=== PATIENT | male | born 1980 ===

== ENCOUNTER 2019-03-22 14:33 | Inpatient (IN) | payer OTHER ==
[2019-03-22] MEDS ORDERED: SENOKOT PO PRN (15:11)
[2019-03-22] MEDS ORDERED: TYLENOL PO PRN (15:11)
[2019-03-22] MEDS ORDERED: DULCOLAX PR PRN (15:11)
[2019-03-22] MEDS ORDERED: APRESOLINE PO PRN (15:20)
[2019-03-22] MEDS ORDERED: ZOFRAN ODT PO PRN (15:20)
[2019-03-22] MEDS: HEPARIN SUB-Q SCH (21:56)
[2019-03-23 05:16] LABS: Basophils # (Auto) 0.1 K/mm3 (0.0-0.1); Basophils % (Auto) 0.9 % (0.0-1.8); Eosinophils # (Auto) 0.3 K/mm3 (0.0-0.4); Eosinophils % (Auto) 3.7 % (0.0-4.3); Lymphocytes # (Auto) 0.9 K/mm3 (1.2-5.4); Lymphocytes % (Auto) 10.2 % (13.4-35.0); Mean Corpuscular HGB Conc 33 % (32-34); Mean Corpuscular Volume 88 fl (84-94); Monocytes # (Auto) 0.8 K/mm3 (0.0-0.8); Monocytes % (Auto) 9.3 % (0.0-7.3); Platelet Count 276 K/mm3 (140-440); Red Blood Count 4.09 M/mm3 (3.65-5.03); Red Cell Distribution Width 15.8 % (13.2-15.2)
[2019-03-23 05:37] LABS: Albumin 3.7 g/dL (3.9-5); Calcium 8.8 mg/dL (8.4-10.2)
[2019-03-23] MEDS: HEPARIN SUB-Q SCH ×3 (06:49→21:02)
[2019-03-23] MEDS: PROTONIX PO SCH (09:32)
[2019-03-23] MEDS: VITAMIN C PO SCH (09:32)
[2019-03-23] MEDS: FEOSOL PO SCH (09:32)
--- NOTE | 2019-03-23 15:37 | History and Physical Report ---
History of Present Illness Date: 03/23/19 Date of admission: 03/22/19 16:53 Chief Complaint: Difficulty walking, weakness History of present illness: 39-year-old male with generalized weakness and dizziness plus right flank pain and diarrhea. Admitted to the hospital was found to be hypotensive and hyponatremic. Cardiology was consulted, Echocardiogram was obtained but do not have results. CTs of the abdomen and chest showed no acute abnormalities. CT stone protocol showed a possible 1 mm stone on the left kidney. Ultrasound of the gallbladder showed no acute abnormalities but did show fatty liver. Uncertain etiology for his weakness and loss of balance. 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 Patient and family deny any radiation or chemotherapy to the area. Also noted on exam that there is a slight right facial droop that the mother also picked up on. No other focal signs. Do not have a MRI brain or CT head available from outside hospital. At this point I'm suspecting a neurologic issue and will need to investigate records and work up further. After the patient was medically stabilized they were transferred for further rehabilitation. All available medical records have been reviewed. Plan of care was discussed with patient and family. Past History Past Medical History: cancer, diabetes, hypertension, other (RAUDEL on CPAP, CK D2, morbid obesity, glaucoma) Past Surgical History: Other (skin cancer excision) Social history: , lives with family (2 level home), full code. denies: smoking, alcohol abuse, prescription drug abuse Family history: hypertension Medications and Allergies Allergies Allergy/AdvReac Type Severity Reaction Status Date / Time hydromorphone [From Dilaudid] AdvReac Unknown Unverified 03/22/19 14:36 Active Meds: Active Medications Acetaminophen (Tylenol) 650 mg PO Q4H PRN PRN Reason: Pain MILD(1-3)/Fever >100.5/HAGER Ascorbic Acid (Vitamin C) 500 mg PO QDAY [facility] Last Admin: 03/23/19 09:32 Dose: 500 mg Documented by: Bisacodyl (Dulcolax) 10 mg VA QDAY PRN PRN Reason: Constipation unrelieved by MOM Ferrous Sulfate (Feosol) 325 mg PO QDAY [facility] Last Admin: 03/23/19 09:32 Dose: 325 mg Documented by: Heparin Sodium (Porcine) (Heparin) 5,000 unit SUB-Q Q8HR [facility] Last Admin: 03/23/19 15:02 Dose: 5,000 unit Documented by: Hydralazine HCl (Apresoline) 10 mg PO Q6H PRN PRN Reason: Hypertension Ondansetron HCl (Zofran Odt) 4 mg PO Q8H PRN PRN Reason: Nausea And Vomiting Pantoprazole Sodium (Protonix) 40 mg PO QDAY [facility] Last Admin: 03/23/19 09:32 Dose: 40 mg Documented by: Idania (Senokot) 8.6 mg PO Q12H PRN PRN Reason: Laxative Effect Review of Systems All systems: negative (ROS negative for 12 systems except as noted below with pertinent positives and negatives.) Constitutional: no weight loss, no weight gain, no fever, no chills Ears, nose, mouth and throat: no decreased hearing, no odynophagia, no vertigo Cardiovascular: no chest pain, no palpitations, no rapid/irregular heart beat, no edema Respiratory: no cough, no cough with sputum Gastrointestinal: no abdominal pain, no nausea, no vomiting, no diarrhea, no c onstipation Genitourinary Male: urinary hesitancy, incontinence, no dysuria Musculoskeletal: arm numbness/tingling, leg numbness/tingling, no neck pain, no shooting arm pain Integumentary: no rash, no pruritis, no redness, no sores Neurological: numbness, no head injury Psychiatric: no memory loss Exam - Exam Narrative exam: MUSCULOSKELETAL SPECIALTY EXAM CONSTITUTIONAL: Well developed, well nourished, obese, appropriately groomed LYMPHATIC: No appreciable abnormalities palpable in neck EENT: Visual murguia full to confrontation. EOMI. Oropharynx clear. Hearing intact to soft voice RESPIRATORY: Clear to auscultation bilaterally, no increased work of breathing CARDIOVASCULAR: Regular Rate/ Rhythm, mild swelling in b/l feet, otherwise no edema or tenderness in BUE or BLE. Pulses palpable in all extremities. All extremities warm. GI: + bowel sounds, soft, NTTP, nondistended. INTEGUMENTARY: Normal, no lesion, rash, masses or bruising noted in extremities except for old scar over left shoulder MUSCULOSKELETAL: BUE and BLE normal without defect, crepitus, subluxation, effusion, arthritic changes or TTP. Straight leg raise negative bilaterally BUE 4+/5, good ROM, with normal tone. BLE 4+/5 good ROM, with normal tone NEURO: CN 2-12 grossly intact. Sensation intact but altered with numbness in all extremities. Reflexes 2+ bilaterally at biceps, brachioradialis and patella. No clonus at ankles. Coordination intact in BUE. No tremor noted in 4 extremities. POSTURE and GAIT: Sitting posture good. Balance and gait decreased even with rolling walker. PSYCH: Alert, oriented x3, affect appears normal. Insight appears intact. - Constitutional Vitals: Vital Signs - 12hr 03/23/19 03/23/19 03/23/19 04:31 07:24 11:55 Temperature 37.2 C 36.9 C 36.5 C Pulse Rate 52 L 70 57 L Respiratory 20 20 20 Rate Blood Pressure 105/66 134/78 Blood Pressure 133/76 [Left] O2 Sat by Pulse 92 92 97 Oximetry - Allied health notes FIMS assesment as documented by PT/OT/ST: Grooming Patient cleans teeth/dentures: Yes Patient reyes/brushes hair: Yes Patient washes, rinses and Yes dries face: Patient washes, rinses and Yes dries hands: Patient shaves: No Patient applies make-up: No Patient performs (no make-up/ / (100%) shaving): Grooming FIM Score 5. Supervision ([place] applies toothpaste or opens containers.) Toileting Toileting Device Urinal,Bedside Commode Patient able to: Adjust clothes before,Clean self,Adjust clothes after Patient able to perform: 3/3 (100%) Toileting FIM Score 4. Minimal Assistance (Patient = 75% or more. Needs touching.) Social interaction/Memory/Problem solving Social Interaction FIM Score 7. Complete [place] (Interacts appropriately. Controls temper.) Memory FIM Score 7. Complete [place] (Remembers people and routines.) Problem Solving FIM Score 5. Supervision (Needs cueing <10% to solve routine problems.) Transfers Mode of Locomotion: Walking Bed/Chair/Wheelchair Transfers 4. Minimal Assistance (Patient = 75% or more. FIM Score Needs touching.) Toilet Transfers FIM Score 4. Minimal Assistance (Patient = 75% or more. Needs touching.) Patient transferred to: Shower Shower Transfers FIM Score 4. Minimal Assistance (Patient = 75% or more. Needs touching.) Locomotion- walk/wheelchair Ambulation Distance 36 Eating Eating FIM Score 5. Supervision/Set-Up (Needs help w/ container s, cutting meat, etc.) Dressing-Upper body Patient retrieves clothing No items: Patient applies/removes UE No prosthesis or orthosis: Upper Body Dressing FIM Score 4. Minimal Assistance (Patient = 75% or more. Needs touching.) Dressing-lower body Patient retrieves clothing No items: Patient applies/removes LE No prosthesis or orthosis: Lower Body Dressing FIM Score 4. Minimal Assistance (Patient = 75% or more. Needs touching.) - Labs CBC & Chem 7: 03/23/19 04:25 03/23/19 04:25 Labs: Laboratory Results - last 72 hr 03/23/19 03/23/19 04:25 04:25 WBC 8.5 RBC 4.09 Hgb 12.0 Hct 36.0 MCV 88 MCH 29 MCHC 33 RDW 15.8 H Plt Count 276 Lymph % (Auto) 10.2 L [place] % (Auto) 9.3 H Eos % (Auto) 3.7 Baso % (Auto) 0.9 Lymph # 0.9 L [place] # 0.8 Eos # 0.3 Baso # 0.1 Seg Neutrophils % 75.9 H Seg Neutrophils # 6.4 Sodium 140 Potassium 4.3 Chloride 105.5 Carbon Dioxide 24 Anion Gap 15 BUN 11 Creatinine 1.4 Estimated GFR 56 BUN/Creatinine Ratio 8 Glucose 96 Calcium 8.8 Total Bilirubin 0.40 AST 39 ALT 44 Alkaline Phosphatase 73 Total Protein 7.0 Albumin 3.7 L Albumin/Globulin Ratio 1.1 Assessment and Plan Assessment and plan: Patient was assessed and evaluated for Acute Inpatient Rehab Unit. Due to the patients above-mentioned medical complexity, along with decreased functional mobility and self care, this patient continues to require and be appropriate for a comprehensive, multidisciplinary [id number] sav abilitation program. These needs cannot be met in an outpatient or other less intensive setting. The patient would continue to benefit from skilled therapy intervention for at least 3 hours per day, five days a week, with techniques specific to the needs of the patient to improve function, activities of daily living, and reintegration into the community. The patient continues to require: -- OT to improve ROM, self-care, and learn use of adaptive equipment -- PT to improve strength and balance, functional transfers, and ambulation with energy conservation techniques to improve functional mobility -- 24 hour RN to ensure and prevent skin breakdown, promote progressive independence while ensuring safety, ensure education regarding medications, and incorporation of the rehabilitation at the bedside -- 24 hour Book Sewer to coordinate this interdisciplinary program, and to manage/prevent complications as a result of the patients medical comorbidities. -Plan of care by day 4 -Weekly team conferences With such a program, there is a reasonable certainty that the goals individualized for this patient can be achieved within the specified length of stay. M62.81 Muscle weakness: PT & OT will work on strengthening exercises to improve functional strength including mixture of closed and open kinetic chain exercises. R26.2 Difficulty walking: PT will work on gait training and proper use of assistive devices and advance as appropriate to use of stairs and outside ambulation on uneven surfaces. Z73.6 ADL dysfunction: OT will work on improving ability to perform ADLs (including assistive devices) to increase independence and decrease caregiver burden and improve functional transfers and mobility training. R26.81 Unsteadiness on feet: PT will work on improving static and dynamic s itting and standing balance as well as proper use of assistive devices to decrease risk of falls. R26.89 Abnormality of gait: PT will work to improve safety and efficiency of gait through neuromotor training and gait training along with instruction on proper use of assistive devices. R53.81 Debility: PT & OT will work on improving overall functional status to improve participation with ADLs, mobility and social involvement. R53.83 Fatigue: PT & OT will work on improving endurance through aerobic exercises and therapeutic activity while monitoring patients tolerance for activity and vital signs as needed. Hypertension: Continue medications and adjust as needed CKD 2:Avoid nephrotoxic medications, monitor Diabetes type 2: monitor blood GLU and cont carb controlled diet Morbid obesity: modification of diet/lifestyle and exercise discussed Obstructive sleep apnea: CPAP, moniotr DVT ppx: Heparin Pain: Continue physical modalities in therapy and pain medications as needed to achieve functional pain control. Sleep: Monitor and address as needed. Bowel: Monitor and address as needed. Appetite: Monitor and address as needed. Discharge planning: Pending therapy progress and care plan meeting. Will continue discussion with therapy team, SW, patient and family. 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 Will monitor for worsening HTN, DM, CKD, DVT/PE, bowel and bladder complications and electrolyte abnormalities. Will attempt to avoid occurrence of these issues or treat them if they present themselves.
[2019-03-23] MEDS ORDERED: VITAMIN B-12 IM NR (21:05)
[2019-03-24] MEDS: HEPARIN SUB-Q SCH ×3 (05:00→21:16)
[2019-03-24] MEDS ORDERED: VITAMIN D3 PO SCH (08:00)
--- NOTE | 2019-03-24 09:12 | Progress Note ---
Subjective Date of service: 03/24/19 Principal diagnosis: Difficulty walking, weakness Interval history: 39-year-old male with generalized weakness and dizziness plus right flank pain and diarrhea. Admitted to the hospital was found to be hypotensive and hyponatremic. Cardiology was consulted, Echocardiogram was obtained but do not have results. CTs of the abdomen and chest showed no acute abnormalities. CT stone protocol showed a possible 1 mm stone on the left kidney. Ultrasound of the gallbladder showed no acute abnormalities but did show fatty liver. Uncertain etiology for his weakness and loss of balance. 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 Patient and family deny any radiation or chemotherapy to the area. Also noted on exam that there is a slight right facial droop that the mother also picked up on. No other focal signs. Do not have a MRI brain or CT head available from outside hospital. At this point I'm suspecting a neurologic issue and will need to investigate records and work up further. Reviewed records again. Mention of a Head CT being ordered but no results. Attempted to order Brain MRI today but he is too heavy by ~50lbs. Newer CT is down, will order Head CT once available. Suspect lacunar infarct likely in pontine area. TTP over suprapubic area with urge but inability to urinate. Nelson inserted today due to retention with overflow incontinence with 1300mL out. Weakness and parasthesias were sudden in onset accompanied by urinary incontinence. Have replaced low vitamin levels with some results pending. Due to concern for CVA and inability to obtain radiographic proof, will start secondary stroke prevention. Patient is 20 days out from initial event and has been on dvt ppx without worsening symptoms. BP has been borderline , start low dose lisinopril and adjust for effect. Patient is participating in therapy and making reasonable progress. Taking rest breaks as needed. +BM. Denies pain, palpitations, dyspnea, cough, N/V, or joint pain. All records, vitals, labs and medications were reviewed. No other issues per patient, nursing or therapy. Objective - Exam Narrative Exam: MUSCULOSKELETAL SPECIALTY EXAM CONSTITUTIONAL: Well developed, well nourished, obese, appropriately groomed EENT: Hearing intact to soft voice RESPIRATORY: Clear to auscultation bilaterally, no increased work of breathing CARDIOVASCULAR: Regular Rate/ Rhythm, mild swelling in b/l feet, otherwise no edema or tenderness in BUE or BLE. Pulses palpable in all extremities. All extremities warm. GI: + bowel sounds, soft, NTTP, nondistended, except increased urinary urge/TTP at suprapubic area. INTEGUMENTARY: Normal, no lesion, rash, masses or bruising noted in extremities except for old scar over left shoulder MUSCULOSKELETAL: BUE and BLE normal without defect, crepitus, subluxation, effusion, arthritic changes or TTP. Straight leg raise negative bilaterally BUE 4+/5, good ROM, with normal tone. BLE 4+/5 good ROM, with normal tone NEURO: CN 2-12 grossly intact except for slight right flattening of nasolabial fold. Sensation intact but altered with numbness in all extremities. No tremor noted in 4 extremities. POSTURE and GAIT: Sitting posture good. Balance and gait decreased even with rolling walker. PSYCH: Alert, oriented x3, affect appears normal. Insight appears intact. - Constitutional Vitals: Vital Signs - 12hr 03/24/19 03/24/19 05:31 07:37 Temperature 36.8 C 36.6 C Pulse Rate 73 68 Respiratory 20 18 Rate Blood Pressure 142/76 140/82 [Left] O2 Sat by Pulse 92 94 Oximetry - Allied health notes Allied health notes reviewed: nursing, PT, OT FIMS assessment as documented by PT/OT/ST: Grooming Patient cleans teeth/dentures: Yes Patient reyes/brushes hair: Yes Patient washes, rinses and Yes dries face: Patient washes, rinses and Yes dries hands: Patient shaves: No Patient applies make-up: No Patient performs (no make-up/ / (100%) shaving): Grooming FIM Score 5. Supervision ([place] applies toothpaste or opens containers.) Toileting Toileting Device Urinal,Bedside Commode Patient able to: Adjust clothes before,Clean self,Adjust clothes after Patient able to perform: 3/3 (100%) Toileting FIM Score 4. Minimal Assistance (Patient = 75% or more. Needs touching.) Social interaction/Memory/Problem solving Social Interaction FIM Score 7. Complete [place] (Interacts appropriately. Controls temper.) Memory FIM Score 7. Complete [place] (Remembers people and routines.) Problem Solving FIM Score 5. Supervision (Needs cueing <10% to solve routine problems.) Transfers Mode of Locomotion: Walking Bed/Chair/Wheelchair Transfers 4. Minimal Assistance (Patient = 75% or more. FIM Score Needs touching.) Toilet Transfers FIM Score 4. Minimal Assistance (Patient = 75% or more. Needs touching.) Patient transferred to: Shower Shower Transfers FIM Score 4. Minimal Assistance (Patient = 75% or more. Needs touching.) Locomotion- walk/wheelchair Most Frequent Mode of Wheelchair Locomotion: Ambulation Distance 36 Walking FIM Score 1. Total Assistance (Pt. < 25%, 2 or more person assist, or <50 ft.) Wheelchair Propulsion Distance 274 Wheelchair FIM Score 6. Modified [place] (Wheels a minimum of 150 ft.) Eating Eating FIM Score 5. Supervision/Set-Up (Needs help w/ containers, cutting meat, etc.) Dressing-Upper body Patient retrieves clothing No items: Patient applies/removes UE No prosthesis or orthosis: Upper Body Dressing FIM Score 4. Minimal Assistance (Patient = 75% or more. Needs touching.) Dressing-lower body Patient retrieves clothing No items: Patient applies/removes LE No prosthesis or orthosis: Lower Body Dressing FIM Score 4. Minimal Assistance (Patient = 75% or more. Needs touching.) - Labs CBC & Chem 7: 03/23/19 04:25 03/23/19 04:25 Labs: Laboratory Results - last 72 hr 03/23/19 03/23/19 03/23/19 04:25 04:25 17:06 WBC 8.5 RBC 4.09 Hgb 12.0 Hct 36.0 MCV 88 MCH 29 MCHC 33 RDW 15.8 H Plt Count 276 Lymph % (Auto) 10.2 L [place] % (Auto) 9.3 H Eos % (Auto) 3.7 Baso % (Auto) 0.9 Lymph # 0.9 L [place] # 0.8 Eos # 0.3 Baso # 0.1 Seg Neutrophils % 75.9 H Seg Neutrophils # 6.4 Sodium 140 Potassium 4.3 Chloride 105.5 Carbon Dioxide 24 Anion Gap 15 BUN 11 Creatinine 1.4 Estimated GFR 56 BUN/Creatinine Ratio 8 Glucose 96 Calcium 8.8 Total Bilirubin 0.40 AST 39 ALT 44 Alkaline Phosphatase 73 Total Protein 7.0 Albumin 3.7 L Albumin/Globulin Ratio 1.1 Vitamin B12 370.3 Folate 03/23/19 17:06 WBC RBC Hgb Hct MCV MCH MCHC RDW Plt Count Lymph % (Auto) [place] % (Auto) Eos % (Auto) Baso % (Auto) Lymph # [place] # Eos # Baso # Seg Neutrophils % Seg Neutrophils # Sodium Potassium Chloride Carbon Dioxide Anion Gap BUN Creatinine Estimated GFR BUN/Creatinine Ratio Glucose Calcium Total Bilirubin AST ALT Alkaline Phosphatase Total Protein Albumin Albumin/Globulin Ratio Vitamin B12 Folate 4.14 L Assessment and Plan M62.81 Muscle weakness: PT & OT will work on strengthening exercises to improve functional strength including mixture of closed and open kinetic chain exercises. R26.2 Difficulty walking: PT will work on gait training and proper use of assistive devices and advance as appropriate to use of stairs and outside ambulation on uneven surfaces. Z73.6 ADL dysfunction: OT will work on improving ability to perform ADLs (including assistive devices) to increase independence and decrease caregiver burden and improve functional transfers and mobility training. R26.81 Unsteadiness on feet: PT will work on improving static and dynamic sittin g and standing balance as well as proper use of assistive devices to decrease risk of falls. R26.89 Abnormality of gait: PT will work to improve safety and efficiency of gait through neuromotor training and gait training along with instruction on proper use of assistive devices. R53.81 Debility: PT & OT will work on improving overall functional status to improve participation with ADLs, mobility and social involvement. R53.83 Fatigue: PT & OT will work on improving endurance through aerobic exer cises and therapeutic activity while monitoring patients tolerance for activity and vital signs as needed. Hypertension: Lisinopril started for protective properties and adjust as needed CKD 2:Avoid nephrotoxic medications, monitor, stable currently Diabetes type 2: monitor blood GLU and cont carb controlled diet Morbid obesity: modification of diet/lifestyle and exercise discussed Obstructive sleep apnea: CPAP, monitor Presumed CVA: Likely lacunar infarct. CT head when newer scan available. Start secondary stroke prevention Urinary retention with incontinence: Nelson inserted, 1300mL out initially. Monitor and start bladder training soon. Folate deficiency: replaced Vit B12 topped off, Vit D pending and low dose replacement started, Vit B6 pending. Lipid panel ordered DVT ppx: Heparin Pain: Continue physical modalities in therapy and pain medications as needed to achieve functional pain control. Sleep: Monitor and address as needed. Bowel: Monitor and address as needed. Appetite: Monitor and address as needed. Discharge planning: Pending therapy progress and care plan meeting. Will continue discussion with therapy team, SW, patient and family. 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
[2019-03-24] MEDS: VITAMIN D3 PO SCH (09:49)
[2019-03-24] MEDS: VITAMIN C PO SCH (09:49)
[2019-03-24] MEDS: FEOSOL PO SCH (09:50)
[2019-03-24] MEDS: FOLVITE PO SCH (09:50)
[2019-03-24] MEDS: PROTONIX PO SCH (09:50)
[2019-03-25] MEDS: HEPARIN SUB-Q SCH ×3 (05:10→22:47)
[2019-03-25 07:45] LABS: BUN/Creatinine Ratio 11; Blood Urea Nitrogen 14 mg/dL (9-20); Calcium 9.6 mg/dL (8.4-10.2); Hemolysis Index 13; LDL Cholesterol,Direct 107 mg/dL (50-130)
[2019-03-25 07:59] LABS: HDL Cholesterol 37 mg/dL (40-59)
--- NOTE | 2019-03-25 09:33 | Progress Note ---
Subjective Date of service: 03/25/19 Principal diagnosis: Difficulty walking, weakness Interval history: 39-year-old male with generalized weakness and dizziness plus right flank pain and diarrhea. Admitted to the hospital was found to be hypotensive and hyponatremic. Cardiology was consulted, Echocardiogram was obtained but do not have results. CTs of the abdomen and chest showed no acute abnormalities. CT stone protocol showed a possible 1 mm stone on the left kidney. Ultrasound of the gallbladder showed no acute abnormalities but did show fatty liver. Uncertain etiology for his weakness and loss of balance. 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 Patient and family deny any radiation or chemotherapy to the area. Also noted on exam that there is a slight right facial droop that the mother also picked up on. No other focal signs. Do not have a MRI brain or CT head available from outside hospital. At this point I'm suspecting a neurologic issue and will need to investigate records and work up further. Head CT NEG for infarct but he continues to have loss of balance, weakness p arasthesias and urinary retention - all sudden in onset. Suspect lacunar infarct likely in pontine area. Patient is participating in therapy and making reasonable progress. Taking rest breaks as needed. +BM. Denies pain, palpitations, dyspnea, cough, N/V, or joint pain. Started flomax. Will start bladder training next week after flomax has been in his system. Discussed with both patient and the lack of findings on CT. Also discussed concern based on clinical picture. Advise not to drive until he is cleared. Discussed in Team conference. Making decent progress. Slight improvements in balnace, ambulation and endurance. Continue therapy. All records, vitals, labs and medications were reviewed. No other issues per patient, nursing or therapy. Objective - Exam Narrative Exam: MUSCULOSKELETAL SPECIALTY EXAM CONSTITUTIONAL: Well developed, well nourished, obese, appropriately groomed EENT: Hearing intact to soft voice RESPIRATORY: Clear to auscultation bilaterally, no increased work of breathing CARDIOVASCULAR: Regular Rate/ Rhythm, mild swelling in b/l feet, otherwise no edema or tende rness in BUE or BLE. Pulses palpable in all extremities. All extremities warm. GI : + bowel sounds, soft, NTTP, nondistended. Nelson INTEGUMENTARY: Normal, no lesion, rash, masses or bruising noted in extremities except for old scar over left shoulder MUSCULOSKELETAL: BUE and BLE normal without defect, crepitus, subluxation, effusion, arthritic changes or TTP. Straight leg raise negative bilaterally BUE 4+/5, good ROM, with normal tone. BLE 4+/5 good ROM, with normal tone NEURO: CN 2-12 grossly intact except for slight right flattening of nasolabial fold. Sensation intact but altered with numbness in all extremities. No tremor noted in 4 extremities. POSTURE and GAIT: Sitting posture good. Balance and gait decreased even with rolling walker. PSYCH: Alert, oriented x3, affect appears normal. Insight appears intact. - Constitutional Vitals: Vital Signs - 12hr 03/24/19 03/25/19 03/25/19 23:00 04:28 08:00 Temperature 37.2 C 37.0 C Pulse Rate 74 59 L Respiratory 20 20 18 Rate Blood Pressure 149/91 Blood Pressure 152/71 [Left] O2 Sat by Pulse 91 Oximetry 03/25/19 08:07 Temperature Pulse Rate 59 L Respiratory Rate Blood Pressure Blood Pressure [Left] O2 Sat by Pulse 94 Oximetry - Allied health notes Allied health notes reviewed: nursing, PT, OT FIMS assessment as documented by PT/OT/ST: Grooming Patient cleans teeth/dentures: Yes Patient reyes/brushes hair: Yes Patient washes, rinses and Yes dries face: Patient washes, rinses and Yes dries hands: Patient shaves: No Patient applies make-up: No Patient performs (no make-up/ 4/4 (100%) shaving): Grooming FIM Score 5. Supervision ([place] applies toothpaste or opens containers.) Toileting Toileting Device Urinal,Bedside Commode Patient able to: Adjust clothes before,Clean self,Adjust clothes after Patient able to perform: 3/3 (100%) Toileting FIM Score 4. Minimal Assistance (Patient = 75% or more. Needs touching.) Social interaction/Memory/Problem solving Social Interaction FIM Score 7. Complete [place] (Interacts appropriately. Controls temper.) Memory FIM Score 7. Complete [place] (Remembers people and routines.) Problem Solving FIM Score 5. Supervision (Needs cueing <10% to solve routine problems.) Transfers Mode of Locomotion: Walking Bed/Chair/Wheelchair Transfers 5. Supervision (Needs supv. or set-up for FIM Score sliding board, foot rests.) Toilet Transfers FIM Score 4. Minimal Assistance (Patient = 75% or more. Needs touching.) Patient transferred to: Shower Shower Transfers FIM Score 4. Minimal Assistance (Patient = 75% or more. Needs touching.) Locomotion- walk/wheelchair Most Frequent Mode of Wheelchair Locomotion: Ambulation Distance 70 Walking FIM Score 4. Minimal Assistance (Patient = 75% or more. Minimum of 150 ft.) Wheelchair Propulsion Distance 274 Wheelchair FIM Score 6. Modified [place] (Wheels a minimum of 150 ft.) Eating Eating FIM Score 5. Supervision/Set-Up (Needs help w/ containers, cutting meat, etc.) Dressing-Upper body Patient retrieves clothing No items: Patient applies/removes UE No prosthesis or orthosis: Upper Body Dressing FIM Score 4. Minimal Assistance (Patient = 75% or more. Needs touching.) Dressing-lower body Patient retrieves clothing No items: Patient applies/removes LE No prosthesis or orthosis: Lower Body Dressing FIM Score 4. Minimal Assistance (Patient = 75% or more. Needs touching.) - Labs CBC & Chem 7: 03/23/19 04:25 03/25/19 07:09 Labs: Laboratory Results - last 72 hr 03/23/19 03/23/19 03/23/19 04:25 04:25 17:06 WBC 8.5 RBC 4.09 Hgb 12.0 Hct 36.0 MCV 88 MCH 29 MCHC 33 RDW 15.8 H Plt Count 276 Lymph % (Auto) 10.2 L [place] % (Auto) 9.3 H Eos % (Auto) 3.7 Baso % (Auto) 0.9 Lymph # 0.9 L [place] # 0.8 Eos # 0.3 Baso # 0.1 Seg Neutrophils % 75.9 H Seg Neutrophils # 6.4 Sodium 140 Potassium 4.3 Chloride 105.5 Carbon Dioxide 24 Anion Gap 15 BUN 11 Creatinine 1.4 Estimated GFR 56 BUN/Creatinine Ratio 8 Glucose 96 Calcium 8.8 Total Bilirubin 0.40 AST 39 ALT 44 Alkaline Phosphatase 73 Total Protein 7.0 Albumin 3.7 L Albumin/Globulin Ratio 1.1 Triglycerides Cholesterol LDL Cholesterol Direct HDL Cholesterol Cholesterol/HDL Ratio Vitamin B12 370.3 Folate 03/23/19 03/25/19 17:06 07:09 WBC RBC Hgb Hct MCV MCH MCHC RDW Plt Count Lymph % (Auto) [place] % (Auto) Eos % (Auto) Baso % (Auto) Lymph # [place] # Eos # Baso # Seg Neutrophils % Seg Neutrophils # Sodium 137 Potassium 4.3 Chloride 99.0 Carbon Dioxide 26 Anion Gap 16 BUN 14 Creatinine 1.3 Estimated GFR > 60 BUN/Creatinine Ratio 11 Glucose 91 Calcium 9.6 Total Bilirubin AST ALT Alkaline Phosphatase Total Protein Albumin Albumin/Globulin Ratio Triglycerides 108 Cholesterol 148 LDL Cholesterol Direct 107 HDL Cholesterol 37 L Cholesterol/HDL Ratio 4.00 Vitamin B12 Folate 4.14 L Assessment and Plan M62.81 Muscle weakness: PT & OT will work on strengthening exercises to improve functional strength including mixture of closed and open kinetic chain exercises. R26.2 Difficulty walking: PT will work on gait training and proper use of assistive devices and advance as appropriate to use of stairs and outside ambulation on uneven surfaces. Z73.6 ADL dysfunction: OT will work on improving ability to perform ADLs (including assistive devices) to increase independence and decrease caregiver burden and improve functional transfers and mobility training. R26.81 Unsteadiness on feet: PT will work on improving static and dynamic sitting and standing balance as well as proper use of assistive devices to decrease risk of falls. R26.89 Abnormality of gait: PT will work to improve safety and efficiency of gait through neuromotor training and gait training along with instruction on proper use of assistive devices. R53.81 Debility: PT & OT will work on improving overall functional status to improve participation with ADLs, mobility and social involvement. R53.83 Fatigue: PT & OT will work on improving endurance through aerobic exercises and therapeutic activity while monitoring patients tolerance for activity and vital signs as needed. Hypertension: Lisinopril started for protective properties and adjust as needed CKD 2:Avoid nephrotoxic medications, monitor, stable currently Diabetes type 2: monitor blood GLU and cont carb controlled diet Morbid obesity: modification of diet/lifestyle and exercise discussed Obstructive sleep apnea: CPAP, monitor Presumed CVA: Likely lacunar infarct. CT head NEG. Start secondary stroke prevention Urinary retention with incontinence: Nelson inserted, 1300mL out initially. Monitor and start bladder training soon. Flomax Folate deficiency: replaced Vit B12 topped off, Vit D pending and low dose replacement started, Vit B6 p ending. Lipid panel ordered DVT ppx: Heparin Pain: Continue physical modalities in therapy and pain medications as needed to achieve functional pain control. Sleep: Monitor and address as needed. Bowel: Monitor and address as needed. Appetite: Monitor and address as needed. Discharge planning: Pending therapy progress and care plan meeting. Will continue discussion with therapy team, SW, patient and family. 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
[2019-03-25] MEDS: PROTONIX PO SCH (11:00)
[2019-03-25] MEDS: VITAMIN D3 PO SCH (11:00)
[2019-03-25] MEDS: ZESTRIL PO SCH (11:00)
[2019-03-25] MEDS: FOLVITE PO SCH (11:00)
[2019-03-25] MEDS: HALFPRIN EC PO SCH (11:00)
[2019-03-25] MEDS: VITAMIN C PO SCH (11:00)
[2019-03-25] MEDS: FEOSOL PO SCH (11:00)
--- NOTE | 2019-03-25 17:20 | Cat Scan Report ---
CT head/brain wo con INDICATION: Weakness and numbness. TECHNIQUE: Routine CT head without contrast. All CT scans at this location are performed using CT dos e reduction for ALARA by means of automated exposure control. COMPARISON: None. FINDINGS: BRAIN / INTRACRANIAL CONTENTS: No acute hemorrhage, mass effect, midline shift, or hydrocephalus. No appreciable acute large territorial or lacunar infarct. No chronic infarct or focal atrophy. Normal b rain volume and ventricular/sulcal size for age. ORBITS: No significant abnormality of visualized orbits. SINUSES / MASTOIDS: No significant abnormality of visualized sinuses and mastoid air cells. ADDITIONAL FINDINGS: None. IMPRESSION: 1. No acute intracranial abnormality. Signer Name: Isaac Siegel MD Signed: 03/25/2019 5:15 PM Workstation Name: [id number]
--- NOTE | 2019-03-25 21:37 | IRU Plan of Care ---
Interdisciplinary Plan of Care - IP IRU INTERDISCIPLINARY PLAN: [facility] Inpatient Rehab Unit Plan of Care IRU Interdisciplinary Care Plan Start: 03/22/19 17:11 Freq: Admission then PRN Status: Active Protocol: Document 03/25/19 17:18 TH (Rec: 03/25/19 17:22 TH [id number]) Interdisciplinary Problem List Interdisciplinary Problem List Interdisciplinary Problem List Impaired Bathing/Grooming, Query Text:Answers will Trigger Problems Impaired Dressing,Impaired and Outcomes on Worklist. Mobility,Impaired Transfers, Impaired Bladder/Bowel Management,Impaired Toileting, Pain Management,Knowledge Deficits,Discharge Concerns, Impaired Safety,Medications Education,Diabetes Education, Impaired Cardiovascular System IRU Interdisciplinary Care Plan Therapy Services Therapy Services Will Include: Physical Therapy,Occupational Query Text:Patient will be seen for a Therapy minimum of 3 hours of daily therapy 5 out of 7 days a week. Therapy intensity may be adjusted within a 7 consecutive day period to effectively serve the individual needs of the patient. Treatment Frequency/Intensity/Duration Treatment Frequency 5 days per week Treatment Intensity 3 hours per day Treatment Duration 14-21 days Problem Area: Eating/Swallowing Eating/Swallowing Outcomes Eating/Swallowing Interventions Problem Area: Bathing/Grooming Bathing/Grooming Outcomes Improve [place] w/ Grooming,Improve [place] w/ Bathing Bathing/Grooming Interventions ADL Training,Use of Assistive Devices,Therapeutic Exercise, Therapeutic Activity, Neuromuscular Re-Education, Balance Work,Activity Tolerance Work,Patient/ Caregiver Education Problem Area: Dressing Dressing Outcomes Improve [place] w/ UB Dressing,Improve [place] w/ LB Dressing Dressing Interventions ADL Training,Use of Assistive Devices,Neuromuscular Re- Education,Therapeutic Exercise ,Balance Work,Modalities, Patient/Caregiver Education Problem Area: Mobility Mobility Outcomes Improve [place] w/ Bed Mobility,Improve [place] w/ Ambulation,Improve [place] w/ Stairs/Curb, Improve [place] w/ Wheelchair Mobility Interventions Therapeutic Exercise, Neuromuscular Re-Ed.,Activity Tolerance Work,Use of Assistive Devices,Patient/ Caregiver Education,Bed Mobility Work,Gait Training,W/ C Mobility Work Problem Area: Transfers Transfers Outcomes Improve [place] w/ Bed Transfers,Improve [place] w/ Car Transfers Transfers Interventions Transfer Training,Therapeutic Exercise,Neuromuscular Re- Education,Activity Tolerance Work,Use of Assistive Devices, Patient/Caregiver Education Problem Area: Bowel/Bladder Managment Bowel/Bladder Outcomes Continent of Bladder Bowel/Bladder Interventions Bladder Training Program, Patient/Caregiver Education Problem Area: Toileting Toileting Outcomes Improve [place] w/ Toileting Toileting Interventions ADL Training,Balance Work,Use of Assistive Devices,Patient/ Caregiver Education Problem Area: Nutrition Nutrition Outcomes Understand and Comply w/ Diet Nutrition Interventions Patient/Caregiver Education Problem Area: Comprehension Comprehension Outcomes Comprehension Interventions Problem Area: Expression Expression Outcomes Expression Interventions Problem Area: Problem Solving Problem Solving Outcomes Improve Problem Solving Problem Solving Interventions Safety Education,Patient/ Caregiver Education Problem Area: Memory Memory Outcomes Memory Interventions Problem Area: Pain Management Pain Management Outcomes Demonstrate/Verbalize Pain Strategies Pain Management Interventions Medication Management Problem Area: Knowledge Deficits Knowledge Deficits Outcomes Demonstrate Ability to Manage Blood Glucose,Verbalize Precautions Knowledge Deficits Interventions Disease/Injury/Sx. Intervention Education, Medication Use Education, Health Maintainence Education, Safety Education Problem Area: Skin/Tissue Integrity Skin/Tissue Integrity Outcomes Demonstrate Understanding of Pressure Relief Skin/Tissue Integrity Interventions Pressure Relief Instruction Problem Area: Social Interaction Social Interaction Outcomes Social Interaction Interventions Problem Area: Adjustment to Disability Adjustment to Disability Outcomes Adjustment to Disability Interventions Problem Area: Discharge Concerns Discharge Concerns Outcomes Discharge w/ Necessary Equipment,Have Home Health/ Outpatient Services Discharge Concerns Interventions Discharge Planning,Patient/ Family/Caregiver Counseling, Family/Caregiver Training Problem Area: Community Reintegration Community Reintegration Outcomes Community Reintegration Interventions Problem Area: Home Management Home Management Outcomes Improve [place] w/ Home Management Home Management Interventions Meal Preparation,Clothing Care ,Activity Tolerance Work,House Cleaning,Patient/Caregiver Education Problem Area: Safety Safety Outcomes Provide Safe Environment, Demonstrate Good Safety w/ Transfers/Mobility Safety Interventions Identify Fall Risk,[place] Pt. to Environment,Reduce Environmental Hazards, Implement Mechanical Devices, i.e. Chair Alarm (Post Fall Update),Re-Educate Patient/ Caregiver for Safety (Post Fall Update) Problem Area: Medication Education Medication Education Outcomes Patient/Caregiver will Verbalize Understanding of Medications Medication Education Interventions Explain Administration/Side Effects/Interactions Problem Area: Diabetes Education Diabetes Education Outcomes Demonstrate Knowledge of Resources Availlable in Diabetic Ed. Folder Diabetes Education Interventions Discuss Pathophysiology of Diabetes Problem Area: Oxygenation Oxygenation Outcomes Oxygenation Interventions Problem Area: Cardiovascular Cardiovascular Outcomes Cardiovascular Interventions Physician Only Medical Prognosis and Rehabilitation Fair medical prognosis. Patient has multiple comorbidities and is morbidly obese. Has clinical signs of CVA but not seen on Head CT and unable to MRI. Will treat as CVA. Good rehabilitation potential. Should be able to DC home with minimal assistance. Potential (Completed by Physician) This plan of care has been developed based on the findings from the pre- admission assessment, post admission physician evaluation, information gathered from the assessments from all therapy disciplines and other pertinent clinicians. The plan of care has been reviewed and discussed in collaboration with the interdisciplinary team. The plan of care will be reviewed and updated at least weekly.
[2019-03-25] MEDS: FLOMAX PO SCH (22:47)
[2019-03-26] MEDS: HEPARIN SUB-Q SCH ×3 (06:03→23:05)
--- NOTE | 2019-03-26 09:00 | Progress Note ---
Subjective Date of service: 03/26/19 Principal diagnosis: Difficulty walking, weakness Interval history: 39-year-old male with generalized weakness and dizziness plus right flank pain and diarrhea. Admitted to the hospital was found to be hypotensive and hyponatremic. Cardiology was consulted, Echocardiogram was obtained but do not have results. CTs of the abdomen and chest showed no acute abnormalities. CT stone protocol showed a possible 1 mm stone on the left kidney. Ultrasound of the gallbladder showed no acute abnormalities but did show fatty liver. Uncertain etiology for his weakness and loss of balance. 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 Patient and family deny any radiation or chemotherapy to the area. Also noted on exam that there is a slight right facial droop that the mother also picked up on. No other focal signs. Do not have a MRI brain or CT head available from outside hospital. At this point I'm suspecting a neurologic issue and will need to investigate records and work up further. Head CT NEG for infarct but he continues to have loss of balance, weakness pa rasthesias and urinary retention - all sudden in onset. Clinically consistent lacunar infarct likely in pontine area. Denies injury to back / neck, no viral illness or other sickness prior to incident. Would still like MRI but unavailable due to patient size. Patient is participating in therapy and making reasonable progress. Taking rest breaks as needed. +BM. Denies pain, palpitations, dyspnea, cough, N/V, or joint pain. Will start bladder training next week after flomax has been in his system. BP is improving, monitor. Awaiting Vit D results All records, vitals, labs and medications were reviewed. No other issues per patient, nursing or therapy. Objective - Exam Narrative Exam: MUSCULOSKELETAL SPECIALTY EXAM CONSTITUTIONAL: Well developed, well nourished, obese, appropriately groomed EENT: Hearing intact to soft voice RESPIRATORY: Clear to auscultation bilaterally, no increased work of breathing CARDIOVASCULAR: Regular Rate/ Rhythm, mild swelling in b/l feet, otherwise no edema or tenderness in BUE or BLE. Pulses palpable in all extremities. All extremities warm. GI : + bowel sounds, soft, NTTP, nondistended. Nelson INTEGUMENTARY: Normal, no lesion, rash, masses or bruising noted in extremities except for old scar over left shoulder MUSCULOSKELETAL: BUE and BLE normal without defect, crepitus, subluxation, effusion, arthritic changes or TTP. Straight leg raise negative bilaterally BUE 4+/5, good ROM, with normal tone. BLE 4+/5 good ROM, with normal tone NEURO: CN 2-12 grossly intact except for slight right flattening of nasolabial fold. Sensation intact but altered with numbness in all extremities. No tremor noted in 4 extremities. POSTURE and GAIT: Sitting posture good. Balance and gait decreased even with rolling walker. PSYCH: Alert, oriented x3, affect appears normal. Insight appears intact. - Constitutional Vitals: Vital Signs - 12hr 03/26/19 03/26/19 03/26/19 04:51 07:39 08:00 Temperature 37.1 C 36.6 C Pulse Rate 70 71 61 Respiratory 20 18 Rate Blood Pressure 133/75 Blood Pressure 142/67 [Left] O2 Sat by Pulse 89 91 Oximetry - Allied health notes Allied health notes reviewed: nursing, PT, OT FIMS assessment as documented by PT/OT/ST: Grooming Patient cleans teeth/dentures: Yes Patient reyes/brushes hair: Yes Patient washes, rinses and Yes dries face: Patient washes, rinses and Yes dries hands: Patient shaves: No Patient applies make-up: No Patient performs (no make-up/ 4/4 (100%) shaving): Grooming FIM Score 5. Supervision ([place] applies toothpaste or opens containers.) Toileting Toileting Device Urinal,Bedside Commode Patient able to: Adjust clothes before,Clean self,Adjust clothes after Patient able to perform: 3/3 (100%) Toileting FIM Score 4. Minimal Assistance (Patient = 75% or more. Needs touching.) Social interaction/Memory/Problem solving Social Interaction FIM Score 6. Mod. [place] (Mostly appropriate. May need meds. No supv.) Memory FIM Score 6. Modified [place](Mild difficulty remembering people/routines.) Problem Solving FIM Score 5. Supervision (Needs cueing <10% to solve routine problems.) Transfers Mode of Locomotion: Walking Bed/Chair/Wheelchair Transfers 5. Supervision (Needs supv. or set-up for FIM Score sliding board, foot rests.) Toilet Transfers FIM Score 4. Minimal Assistance (Patient = 75% or more. Needs touching.) Patient transferred to: Shower Shower Transfers FIM Score 4. Minimal Assistance (Patient = 75% or more. Needs touching.) Locomotion- walk/wheelchair Most Frequent Mode of Wheelchair Locomotion: Ambulation Distance 70 Walking FIM Score 4. Minimal Assistance (Patient = 75% or more. Minimum of 150 ft.) Wheelchair Propulsion Distance 274 Wheelchair FIM Score 6. Modified [place] (Wheels a minimum of 150 ft.) Eating Eating FIM Score 5. Supervision/Set-Up (Needs help w/ containers, cutting meat, etc.) Dressing-Upper body Patient retrieves clothing No items: Patient applies/removes UE No prosthesis or orthosis: Upper Body Dressing FIM Score 4. Minimal Assistance (Patient = 75% or more. Needs touching.) Dressing-lower body Patient retrieves clothing No items: Patient applies/removes LE No prosthesis or orthosis: Lower Body Dressing FIM Score 4. Minimal Assistance (Patient = 75% or more. Needs touching.) - Labs CBC & Chem 7: 03/23/19 04:25 03/25/19 07:09 Labs: Laboratory Results - last 72 hr 03/23/19 03/23/19 03/25/19 17:06 17:06 07:09 Sodium 137 Potassium 4.3 Chloride 99.0 Carbon Dioxide 26 Anion Gap 16 BUN 14 Creatinine 1.3 Estimated GFR > 60 BUN/Creatinine Ratio 11 Glucose 91 Calcium 9.6 Triglycerides 108 Cholesterol 148 LDL Cholesterol Direct 107 HDL Cholesterol 37 L Cholesterol/HDL Ratio 4.00 Vitamin B12 370.3 Folate 4.14 L Assessment and Plan M62.81 Muscle weakness: PT & OT will work on strengthening exercises to improve functional strength including mixture of closed and open kinetic chain exercis es. R26.2 Difficulty walking: PT will work on gait training and proper use of assistive devices and advance as appropriate to use of stairs and outside ambulation on uneven surfaces. Z73.6 ADL dysfunction: OT will work on improving ability to perform ADLs (including assistive devices) to increase independence and decrease caregiver burden and improve functional transfers and mobility training. R26.81 Unsteadiness on feet: PT will work on improving static and dynamic sitting and standing balance as well as proper use of assistive devices to decrease risk of falls. R26.89 Abnormality of gait: PT will work to improve safety and efficiency of gait through neuromotor training and gait training along with instruction on proper use of assistive devices. R53.81 Debility: PT & OT will work on improving overall functional status to improve participation with ADLs, mobility and social involvement. R53.83 Fatigue: PT & OT will work on improving endurance through aerobic exercises and therapeutic activity while monitoring patients tolerance for activity and vital signs as needed. Hypertension: Lisinopril started for protective properties and adjust as needed CKD 2:Avoid nephrotoxic medications, monitor, stable currently Diabetes type 2: monitor blood GLU and cont carb controlled diet Morbid obesity: modification of diet/lifestyle and exercise discussed Obstructive sleep apnea: CPAP, monitor Presumed CVA: Likely lacunar infarct. CT head NEG. MRI unavailable. Start secondary stroke prevention Urinary retention with incontinence: Nelson inserted, 1300mL out initially. Monitor and start bladder training soon. Flomax Folate deficiency: replaced Vit B12 topped off, Vit D pending and low dose replacement started, Vit B6 pending. HLD: Statin started DVT ppx: Heparin Pain: Continue physical modalities in therapy and pain medications as needed to achieve functional pain control. Sleep: Monitor and address as needed. Bowel: Monitor and address as needed. Appetite: Monitor and address as needed. Discharge planning: Pending therapy progress and care plan meeting. Will continue discussion with therapy team, SW, patient and family. 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
[2019-03-26] MEDS: HALFPRIN EC PO SCH (11:45)
[2019-03-26] MEDS: FEOSOL PO SCH (11:45)
[2019-03-26] MEDS: VITAMIN D3 PO SCH (11:45)
[2019-03-26] MEDS: FOLVITE PO SCH (11:45)
[2019-03-26] MEDS: VITAMIN C PO SCH (11:45)
[2019-03-26] MEDS: PROTONIX PO SCH (11:46)
[2019-03-26] MEDS: ZESTRIL PO SCH (11:46)
[2019-03-26] MEDS: FLOMAX PO SCH (22:00)
[2019-03-27] MEDS: HEPARIN SUB-Q SCH ×3 (06:23→21:58)
[2019-03-27] MEDS: ZESTRIL PO SCH (10:42)
[2019-03-27] MEDS: FEOSOL PO SCH (10:42)
[2019-03-27] MEDS: VITAMIN C PO SCH (10:42)
[2019-03-27] MEDS: FOLVITE PO SCH (10:43)
[2019-03-27] MEDS: HALFPRIN EC PO SCH (10:43)
[2019-03-27] MEDS: PROTONIX PO SCH (10:43)
[2019-03-27] MEDS: VITAMIN D3 PO SCH (10:44)
[2019-03-27 11:21] LABS: Vitamin D, 25-OH, D2 <4 ng/mL
[2019-03-27] MEDS: FLOMAX PO SCH (21:58)
[2019-03-28] MEDS: HEPARIN SUB-Q SCH ×3 (06:13→22:17)
[2019-03-28] MEDS: HALFPRIN EC PO SCH (08:41)
[2019-03-28] MEDS: VITAMIN C PO SCH (08:41)
[2019-03-28] MEDS: FEOSOL PO SCH (08:41)
[2019-03-28] MEDS: VITAMIN D3 PO SCH ×2 (08:41→14:13)
[2019-03-28] MEDS: FOLVITE PO SCH (08:41)
[2019-03-28] MEDS: ZESTRIL PO SCH (08:42)
[2019-03-28] MEDS: PROTONIX PO SCH (08:42)
[2019-03-28] MEDS: FLOMAX PO SCH (22:17)
[2019-03-29] MEDS: HEPARIN SUB-Q SCH ×3 (05:44→21:19)
[2019-03-29 06:58] LABS: Hemoglobin 13.3 gm/dl (11.8-15.2); Mean Corpuscular HGB Conc 33 % (32-34); Mean Corpuscular Volume 88 fl (84-94); Platelet Count 235 K/mm3 (140-440); Red Blood Count 4.54 M/mm3 (3.65-5.03); Red Cell Distribution Width 15.2 % (13.2-15.2)
[2019-03-29 08:21] LABS: BUN/Creatinine Ratio 8; Blood Urea Nitrogen 9 mg/dL (9-20); Calcium 9.5 mg/dL (8.4-10.2); Hemolysis Index 5
[2019-03-29] MEDS: ZESTRIL PO SCH (09:04)
[2019-03-29] MEDS: PROTONIX PO SCH (09:04)
[2019-03-29] MEDS: HALFPRIN EC PO SCH (09:04)
[2019-03-29] MEDS: FEOSOL PO SCH (09:04)
[2019-03-29] MEDS: VITAMIN D3 PO SCH (09:04)
[2019-03-29] MEDS: VITAMIN C PO SCH (09:05)
[2019-03-29] MEDS: FOLVITE PO SCH (09:05)
--- NOTE | 2019-03-29 15:37 | Progress Note ---
Subjective Date of service: 03/29/19 Principal diagnosis: Difficulty walking, weakness Interval history: 39-year-old male with generalized weakness and dizziness plus right flank pain and diarrhea. Admitted to the hospital was found to be hypotensive and hyponatremic. Cardiology was consulted, Echocardiogram was obtained but do not have results. CTs of the abdomen and chest showed no acute abnormalities. CT stone protocol showed a possible 1 mm stone on the left kidney. Ultrasound of the gallbladder showed no acute abnormalities but did show fatty liver. Uncertain etiology for his weakness and loss of balance. 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 Patient and family deny any radiation or chemotherapy to the area. Also noted on exam that there is a slight right facial droop that the mother also picked up on. No other focal signs. Do not have a MRI brain or CT head available from outside hospital. At this point I'm suspecting a neurologic issue and will need to investigate records and work up further. Head CT NEG for infarct but he continues to have loss of balance, weakness pa rasthesias and urinary retention - all sudden in onset. Clinically consistent lacunar infarct likely in [place] area. Denies injury to back / neck, no viral illness or other sickness prior to incident. Would still like MRI but unavailable due to patient size. Patient is participating in therapy and making reasonable progress. Taking rest breaks as needed. +BM. Having episodes of being cold then hot over last few days. Afebrile, now rigors, does not appear septic. Is having nonproductive cough also over past day or two. Denies pain, palpitations, dyspnea, N/V, or joint pain. Will start bladder training today and loo to remove Nelson in few days time. BP is improving, monitor. Vit D low, cont replacement All records, vitals, labs and medications were reviewed. No other issues per patient, nursing or therapy. Objective - Exam Narrative Exam: MUSCULOSKELETAL SPECIALTY EXAM CONSTITUTIONAL: Well developed, well nourished, obese, appropriately groomed EENT: Hearing intact to soft voice RESPIRATORY: Slight wheeze bilaterally, no increased work of breathing CARDIOVASCULAR: Regular Rate/ Rhythm, mild swelling in b/l feet, otherwise no edema or tenderness in BUE or BLE. All extremities warm. GI : + bowel sounds, soft, NTTP, nondistended. [place] INTEGUMENTARY: Normal, no lesion, rash, masses or bruising noted in extremities except for old scar over left shoulder MUSCULOSKELETAL: BUE and BLE normal without defect, crepitus, subluxation, effusion, arthritic changes or TTP. BUE 5/5, good ROM, with normal tone. BLE 5/5 good ROM, with normal tone NEURO: CN 2-12 grossly intact except for slight right flattening of nasolabial fold. Sensation intact but altered with numbness in all extremities. No tremor noted in 4 extremities. POSTURE and GAIT: Sitting posture good. Balance and gait decreased even with rolling walker. PSYCH: Alert, oriented x3, affect appears normal. Insight appears intact. - Constitutional Vitals: Vital Signs - 12hr 03/29/19 03/29/19 03/29/19 04:26 07:35 12:42 Temperature 36.8 C 36.4 C L Pulse Rate 67 75 75 Respiratory 20 18 Rate Blood Pressure 104/56 112/79 O2 Sat by Pulse 88 89 93 Oximetry - Allied health notes Allied health notes reviewed: nursing, PT, OT FIMS assessment as documented by PT/OT/ST: Grooming Patient cleans teeth/dentures: Yes Patient reyes/brushes hair: Yes Patient washes, rinses and Yes dries face: Patient washes, rinses and Yes dries hands: Patient shaves: No Patient applies make-up: No Patient performs (no make-up/ 4/4 (100%) shaving): Grooming FIM Score 6. Modified [place] (Needs equipment/device . Extra time.) Toileting Toileting Device Urinal,Bedside Commode Patient able to: Adjust clothes before,Clean self,Adjust clothes after Patient able to perform: 3/3 (100%) Toileting FIM Score 4. Minimal Assistance (Patient = 75% or more. Needs touching.) Social interaction/Memory/Problem solving Social Interaction FIM Score 7. Complete [place] (Interacts appropriately. Controls temper.) Memory FIM Score 6. Modified [place](Mild difficulty remembering people/routines.) Problem Solving FIM Score 6. Mod. [place] (Mild difficulty or needs more time w/ complex.) Transfers Mode of Locomotion: Wheelchair Bed/Chair/Wheelchair Transfers 5. Supervision (Needs supv. or set-up for FIM Score sliding board, foot rests.) Toilet Transfers FIM Score 5. Supervision (Needs supervision or cueing.) Patient transferred to: Shower Shower Transfers FIM Score 5. Supervision (Needs supv. or set-up with device.) Locomotion- walk/wheelchair Most Frequent Mode of Wheelchair Locomotion: Ambulation Distance 90 Walking FIM Score 2. Maximal Assistance (Patient = 25% or more. Minimum of 50 ft.) Wheelchair Propulsion Distance 200 Wheelchair FIM Score 5. Supervision (Minimum 150 ft. supv./cues or 50 ft. independently.) Eating Eating FIM Score 7. Complete [place] (Cuts meat, opens containers, regular diet.) Dressing-Upper body Patient retrieves clothing No items: Patient applies/removes UE n/a prosthesis or orthosis: Upper Body Dressing FIM Score 5. Supv./Set-Up ([place] sets out clothes or applies pros./orth.) Dressing-lower body Patient retrieves clothing No items: Patient applies/removes LE n/a prosthesis or orthosis: Lower Body Dressing FIM Score 5. Supv./Set-Up ([place] sets out clothes or applies pros./orth.) - Labs CBC & Chem 7: 03/29/19 06:17 03/29/19 06:17 Labs: Laboratory Results - last 72 hr 03/23/19 03/26/19 03/28/19 17:06 17:12 07:24 WBC RBC Hgb Hct MCV MCH MCHC RDW Plt Count Sodium Potassium Chloride Carbon Dioxide Anion Gap BUN Creatinine Estimated GFR BUN/Creatinine Ratio Glucose POC Glucose 96 76 Calcium 25-Hydroxy Vitamin D2 <4 25-Hydroxy Vitamin D3 16 03/29/19 03/29/19 06:17 06:17 WBC 7.0 RBC 4.54 Hgb 13.3 Hct 40.0 MCV 88 MCH 29 MCHC 33 RDW 15.2 Plt Count 235 Sodium 139 Potassium 4.0 Chloride 99.5 Carbon Dioxide 24 Anion Gap 20 BUN 9 Creatinine 1.2 Estimated GFR > 60 BUN/Creatinine Ratio 8 Glucose 77 POC Glucose Calcium 9.5 25-Hydroxy Vitamin D2 25-Hydroxy Vitamin D3 Assessment and Plan M62.81 Muscle weakness: PT & OT will work on strengthening exercises to improve functional strength including mixture of closed and open kinetic chain exerc ises. R26.2 Difficulty walking: PT will work on gait training and proper use of assistive devices and advance as appropriate to use of stairs and outside ambulation on uneven surfaces. Z73.6 ADL dysfunction: OT will work on improving ability to perform ADLs (including assistive devices) to increase independence and decrease caregiver burden and improve functional transfers and mobility training. R26.81 Unsteadiness on feet: PT will work on improving static and dynamic sitting and standing balance as well as proper use of assistive devices to decrease risk of falls. R26.89 Abnormality of gait: PT will work to improve safety and efficiency of gait through neuromotor training and gait training along with instruction on proper use of assistive devices. R53.81 Debility: PT & OT will work on improving overall functional status to improve participation with ADLs, mobility and social involvement. R53.83 Fatigue: PT & OT will work on improving endurance through aerobic exercises and therapeutic activity while monitoring patients tolerance for activity and vital signs as needed. Hypertension: Lisinopril started for protective properties and adjust as needed CKD 2:Avoid nephrotoxic medications, monitor, stable currently and in normal range Diabetes type 2: monitor blood GLU and cont carb controlled diet, has been fairly controlled on diet Morbid obesity: modification of diet/lifestyle and exercise discussed Obstructive sleep apnea: CPAP, monitor Presumed CVA: Likely lacunar infarct. CT head NEG. MRI unavailable due to weight. Start secondary stroke prevention Urinary retention with incontinence: Nelson inserted, 1300mL out initially. Monitor and start bladder training. Flomax Folate deficiency: replaced Vit B12 topped off, Vit D low at 16, Vit B6 pending. HLD: Statin started Thyroid panel ordered. CXR ordered for cough/wheeze DVT ppx: Heparin Pain: Continue physical modalities in therapy and pain medications as needed to achieve functional pain control. Sleep: Monitor and address as needed. Bowel: Monitor and address as needed. Appetite: Monitor and address as needed. Discharge planning: Pending therapy progress and care plan meeting. Will continue discussion with therapy team, SW, patient and family. 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
[2019-03-29] MEDS: FLOMAX PO SCH (21:19)
[2019-03-30] MEDS: HEPARIN SUB-Q SCH ×3 (06:19→21:36)
[2019-03-30 08:10] LABS: Free T4 (Free Thyroxine) 1.56 ng/dL (0.76-1.46)
--- NOTE | 2019-03-30 08:31 | XRay Report ---
CHEST 2 VIEWS INDICATION: cough. COMPARISON: None FINDINGS: Support devices: None. Heart: Within normal limits. Lungs/pleura: No acute air space or interstitial disease. No pneumothorax. Additional findings: None. IMPRESSION: No acute findings. Signer Name: Ender Houston Jr, MD Signed: 03/30/2019 8:26 AM Workstation Name: [id number]
[2019-03-30] MEDS: VITAMIN D3 PO SCH (09:59)
[2019-03-30] MEDS: FOLVITE PO SCH (09:59)
[2019-03-30] MEDS: PROTONIX PO SCH (10:00)
[2019-03-30] MEDS: FEOSOL PO SCH (10:00)
[2019-03-30] MEDS: HALFPRIN EC PO SCH (10:00)
[2019-03-30] MEDS: ZESTRIL PO SCH ×3 (10:00→17:45)
[2019-03-30] MEDS: VITAMIN C PO SCH (10:00)
[2019-03-30] MEDS ORDERED: ZESTRIL PO SCH (10:11)
--- NOTE | 2019-03-30 11:31 | Progress Note ---
Subjective Date of service: 03/30/19 Principal diagnosis: Difficulty walking, weakness Interval history: 39-year-old male with generalized weakness and dizziness plus right flank pain and diarrhea. Admitted to the hospital was found to be hypotensive and hyponatremic. Cardiology was consulted, Echocardiogram was obtained but do not have results. CTs of the abdomen and chest showed no acute abnormalities. CT stone protocol showed a possible 1 mm stone on the left kidney. Ultrasound of the gallbladder showed no acute abnormalities but did show fatty liver. Uncertain etiology for his weakness and loss of balance. 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 Patient and family deny any radiation or chemotherapy to the area. Also noted on exam that there is a slight right facial droop that the mother also picked up on. No other focal signs. Do not have a MRI brain or CT head available from outside hospital. At this point I'm suspecting a neurologic issue and will need to investigate records and work up further. Head CT NEG for infarct but he continues to have loss of balance, weakness pa rasthesias and urinary retention - all sudden in onset. Clinically consistent lacunar infarct likely in pontine area. Denies injury to back / neck, no viral illness or other sickness prior to incident. Would still like MRI but unavailable due to patient size. Patient is participating in therapy and making reasonable progress. Taking rest breaks as needed. -BM. Is having nonproductive cough also over past day or two, CXR ordered and is NEG. Not c/w lisinopril cough. Denies pain, palpi tations, dyspnea, N/V, or joint pain. Continue bladder training and look to remove Nelson in few days time. BP is improving, monitor. All records, vitals, labs and medications were reviewed. No other issues per patient, nursing or therapy. Objective - Exam Narrative Exam: MUSCULOSKELETAL SPECIALTY EXAM CONSTITUTIONAL: Well developed, well nourished, obese, appropriately groomed EENT: Hearing intact to soft voice RESPIRATORY: Clear to auscultation bilaterally, no increased work of breathing CARDIOVASCULAR: Regular Rate/ Rhythm, mild swelling in b/l feet, otherwise no edema or tenderness in BUE or BLE. All extremities warm. GI : + bowel sounds, soft, NTTP, nondistended. Nelson INTEGUMENTARY: Normal, no lesion, rash, masses or bruising noted in extremities except for old scar over left shoulder MUSCULOSKELETAL: BUE and BLE normal without defect, crepitus, subluxation, effusion, arthritic changes or TTP. BUE 5/5, good ROM, with normal tone. BLE 5/5 good ROM, with normal tone NEURO: CN 2-12 grossly intact except for slight right flattening of nasolabial fold. Sensation intact but altered with numbness in all extremities. No tremor noted in 4 extremities. POSTURE and GAIT: Sitting posture good. Balance and gait decreased even with rolling walker. PSYCH: Alert, oriented x3, affect appears normal. Insight appears intact. - Constitutional Vitals: Vital Signs - 12hr 03/29/19 03/29/19 03/30/19 23:50 23:52 04:48 Temperature 36.8 C 36.6 C Pulse Rate 71 67 Respiratory 20 20 Rate Blood Pressure 98/45 116/69 94/42 Blood Pressure [Right] O2 Sat by Pulse 91 92 Oximetry 03/30/19 07:00 Temperature 36.2 C L Pulse Rate 77 Respiratory 18 Rate Blood Pressure Blood Pressure 100/50 [Right] O2 Sat by Pulse 95 Oximetry - Allied health notes Allied health notes reviewed: nursing, PT, OT FIMS assessment as documented by PT/OT/ST: Grooming Patient cleans teeth/dentures: Yes Patient reyes/brushes hair: Yes Patient washes, rinses and Yes dries face: Patient washes, rinses and Yes dries hands: Patient shaves: No Patient applies make-up: No Patient performs (no make-up/ 4/4 (100%) shaving): Grooming FIM Score 6. Modified [place] (Needs equ ipment/device . Extra time.) Toileting Toileting Device Urinal,Bedside Commode Patient able to: Adjust clothes before,Clean self,Adjust clothes after Patient able to perform: 3/3 (100%) Toileting FIM Score 4. Minimal Assistance (Patient = 75% or more. Needs touching.) Social interaction/Memory/Problem solving Social Interaction FIM Score 7. Complete [place] (Interacts appropriately. Controls temper.) Memory FIM Score 6. Modified [place](Mild difficulty remembering people/routines.) Problem Solving FIM Score 6. Mod. [place] (Mild difficulty or needs more time w/ complex.) Transfers Mode of Locomotion: Wheelchair Bed/Chair/Wheelchair Transfers 5. Supervision (Needs supv. or set-up for FIM Score sliding board, foot rests.) Toilet Transfers FIM Score 5. Supervision (Needs supervision or cueing.) Patient transferred to: Shower Shower Transfers FIM Score 5. Supervision (Needs supv. or set-up with device.) Locomotion- walk/wheelchair Most Frequent Mode of Wheelchair Locomotion: Ambulation Distance 120 Walking FIM Score 2. Maximal Assistance (Patient = 25% or more. Minimum of 50 ft.) Wheelchair Propulsion Distance 200 Wheelchair FIM Score 5. Supervision (Minimum 150 ft. supv./cues or 50 ft. independently.) Eating Eating FIM Score 7. Complete [place] (Cuts meat, opens containers, regular diet.) Dressing-Upper body Patient retrieves clothing No items: Patient applies/removes UE n/a prosthesis or orthosis: Upper Body Dressing FIM Score 5. Supv./Set-Up ([place] sets out clothes or applies pros./orth.) Dressing-lower body Patient retrieves clothing No items: Patient applies/removes LE n/a prosthesis or orthosis: Lower Body Dressing FIM Score 5. Supv./Set-Up ([place] sets out clothes or applies pros./orth.) - Labs CBC & Chem 7: 03/29/19 06:17 03/29/19 06:17 Labs: Laboratory Results - last 72 hr 03/23/19 03/28/19 03/29/19 17:06 07:24 06:17 WBC 7.0 RBC 4.54 Hgb 13.3 Hct 40.0 MCV 88 MCH 29 MCHC 33 RDW 15.2 Plt Count 235 Sodium Potassium Chloride Carbon Dioxide Anion Gap BUN Creatinine Estimated GFR BUN/Creatinine Ratio Glucose POC Glucose 76 Calcium 25-OH Vitamin D Total See scanned results TSH Free T4 03/29/19 03/29/19 03/30/19 06:17 21:38 07:24 WBC RBC Hgb Hct MCV MCH MCHC RDW Plt Count Sodium 139 Potassium 4.0 Chloride 99.5 Carbon Dioxide 24 Anion Gap 20 BUN 9 Creatinine 1.2 Estimated GFR > 60 BUN/Creatinine Ratio 8 Glucose 77 POC Glucose 134 H Calcium 9.5 25-OH Vitamin D Total TSH 2.620 Free T4 1.56 H Assessment and Plan M62.81 Muscle weakness: PT & OT will work on strengthening exercises to improve functional strength including mixture of closed and open kinetic chain exercises. R26.2 Difficulty walking: PT will work on gait training and proper use of assistive devices and advance as appropriate to use of stairs and outside ambulation on uneven surfaces. Z73.6 ADL dysfunction: OT will work on improving ability to perform ADLs (including assistive devices) to increase independence and decrease caregiver burden and improve functional transfers and mobility training. R26.81 Unsteadiness on feet: PT will work on improving static and dynamic sitting and standing balance as well as proper use of assistive devices to decrease risk of falls. R26.89 Abnormality of gait: PT will work to improve safety and efficiency of gait through neuromotor training and gait training along with instruction on proper use of assistive devices. R53.81 Debility: PT & OT will work on improving overall functional status to improve participation with ADLs, mobility and social involvement. R53.83 Fatigue: PT & OT will work on improving endurance through aerobic exercises and therapeutic activity while monitoring patients tolerance for activity and vital signs as needed. Hypertension: Lisinopril started for protective properties and adjust as needed CKD 2:Avoid nephrotoxic medications, monitor, stable currently and in normal range Diabetes type 2: monitor blood GLU and cont carb controlled diet, has been fairly controlled on diet Morbid obesity: modification of diet/lifestyle and exercise discussed Obstructive sleep apnea: CPAP, monitor Presumed CVA: Likely lacunar infarct. CT head NEG. MRI unavailable due to weight. Start secondary stroke prevention Urinary retention with incontinence: Nelson inserted, 1300mL out initially. Monitor and cont bladder training. Flomax Folate deficiency: replaced Vit B12 topped off, Vit D low at 16, Vit B6 pending. HLD: Statin started Thyroid panel - TSH wnl, T4 slightly elevated CXR NEG DVT ppx: Heparin Pain: Continue physical modalities in therapy and pain medications as needed to achieve functional pain control. Sleep: Monitor and address as needed. Bowel: Monitor and address as needed. Appetite: Monitor and address as needed. Discharge planning: Pending therapy progress and care plan meeting. Will continue discussion with therapy team, SW, patient and family. 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
[2019-03-30] MEDS: FLOMAX PO SCH (21:39)
[2019-03-31] MEDS: HEPARIN SUB-Q SCH ×3 (05:18→22:12)
[2019-03-31] MEDS: ZESTRIL PO SCH (08:38)
[2019-03-31] MEDS: FEOSOL PO SCH (14:34)
[2019-03-31] MEDS: FOLVITE PO SCH (14:35)
[2019-03-31] MEDS: HALFPRIN EC PO SCH (14:36)
[2019-03-31] MEDS: PROTONIX PO SCH (14:37)
[2019-03-31] MEDS: VITAMIN C PO SCH (14:38)
--- NOTE | 2019-03-31 16:10 | Progress Note ---
Subjective Date of service: 03/31/19 Principal diagnosis: Difficulty walking, weakness Interval history: 39-year-old male with generalized weakness and dizziness plus right flank pain and diarrhea. Admitted to the hospital was found to be hypotensive and hyponatremic. Cardiology was consulted, Echocardiogram was obtained but do not have results. CTs of the abdomen and chest showed no acute abnormalities. CT stone protocol showed a possible 1 mm stone on the left kidney. Ultrasound of the gallbladder showed no acute abnormalities but did show fatty liver. Uncertain etiology for his weakness and loss of balance. 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 Patient and family deny any radiation or chemotherapy to the area. Also noted on exam that there is a slight right facial droop that the mother also picked up on. No other focal signs. Do not have a MRI brain or CT head available from outside hospital. At this point I'm suspecting a neurologic issue and will need to investigate records and work up further. Head CT NEG for infarct but he continues to have loss of balance, weakness pa rasthesias and urinary retention - all sudden in onset. Clinically consistent lacunar infarct likely in pontine area. Denies injury to back / neck, no viral illness or other sickness prior to incident. Would still like MRI but unavailable due to patient size. Patient is participating in therapy and making reasonable progress. Taking rest breaks as needed. -BM. Miralax ordered. Patient states he has altered taste which causes nausea from time to time but not with cereal. Happened at OSH as well. Not clear on cause or true symptom. Denies pain, palpitations, dyspnea, V, or joint pain. Continue bladder training and look to remove Nelson in few days time. BP is improving, monitor. All records, vitals, labs and medications were reviewed. No other issues per patient, nursing or therapy. Objective - Exam Narrative Exam: MUSCULOSKELETAL SPECIALTY EXAM CONSTITUTIONAL: Well developed, well nourished, obese, appropriately groomed EENT: Hearing intact to soft voice RESPIRATORY: Clear to auscultation bilaterally, no increased work of breathing CARDIOVASCULAR: Regular Rate/ Rhythm, mild swelling in b/l feet, otherwise no edema or tenderness in BUE or BLE. All extremities warm. GI : + bowel sounds, soft, NTTP, nondistended. Nelson with good output INTEGUMENTARY: Normal, no lesion, rash, masses or bruising noted in extremities except for old scar over left shoulder MUSCULOSKELETAL: BUE and BLE normal without defect, crepitus, subluxation, effusion, arthritic changes or TTP. BUE 5/5, good ROM, with normal tone. BLE 5/5 good ROM, with normal tone NEURO: CN 2-12 grossly intact except for slight right flattening of nasolabial fold. Sensation intact but altered with numbness in all extremities. No tremor noted in 4 extremities. POSTURE and GAIT: Sitting posture good. Balance and gait decreased even with rolling walker. PSYCH: Alert, oriented x3, affect appears normal. Insight appears intact. - Constitutional Vitals: Vital Signs - 12hr 03/31/19 03/31/19 03/31/19 04:30 08:00 08:04 Temperature 36.9 C 36.8 C Pulse Rate 62 81 81 Respiratory 20 Rate Blood Pressure 116/55 Blood Pressure 110/59 [Left] Blood Pressure 110/59 [Right] O2 Sat by Pulse 87 92 Oximetry 03/31/19 03/31/19 12:00 12:27 Temperature 36.6 C Pulse Rate 79 84 Respiratory 18 Rate Blood Pressure Blood Pressure [Left] Blood Pressure 106/65 [Right] O2 Sat by Pulse 94 Oximetry - Allied health notes Allied health notes reviewed: nursing, PT, OT FIMS assessment as documented by PT/OT/ST: Grooming Patient cleans teeth/dentures: Yes Patient reyes/brushes hair: Yes Patient washes, rinses and Yes dries face: Patient washes, rinses and Yes dries hands: Patient shaves: No Patient applies make-up: No Patient performs (no make-up/ 4/4 (100%) shaving): Grooming FIM Score 6. Modified [place] (Needs equipment/device . Extra time.) Toileting Toileting Device Urinal,Bedside Commode Patient able to: Adjust clothes before,Clean self,Adjust clothes after Patient able to perform: 3/3 (100%) Toileting FIM Score 4. Minimal Assistance (Patient = 75% or more. Needs touching.) Social interaction/Memory/Problem solving Social Interaction FIM Score 7. Complete [place] (Interacts appropriately. Controls temper.) Memory FIM Score 6. Modified [place](Mild difficulty remembering people/routines.) Problem Solving FIM Score 6. Mod. [place] (Mild difficulty or needs more time w/ complex.) Transfers Mode of Locomotion: Wheelchair Bed/Chair/Wheelchair Transfers 5. Supervision (Needs supv. or set-up for FIM Score sliding board, foot rests.) Toilet Transfers FIM Score 5. Supervision (Needs supervision or cueing.) Patient transferred to: Shower Shower Transfers FIM Score 5. Supervision (Needs supv. or set-up with device.) Locomotion- Stairs Device used on Stairs Handrail/s Number of Stairs Ascended/ 8 Descended Patient used handrail/support: Yes Stairs FIM Score 2. Maximal Assistance (Patient = 25% or more, 4- 6 stairs.) Locomotion- walk/wheelchair Most Frequent Mode of Wheelchair Locomotion: Ambulation Distance 130 Walking FIM Score 2. Maximal Assistance (Patient = 25% or more. Minimum of 50 ft.) Wheelchair Propulsion Distance 200 Wheelchair FIM Score 5. Supervision (Minimum 150 ft. supv./cues or 50 ft. independently.) Eating Eating FIM Score 7. Complete [place] (Cuts meat, opens containers, regular diet.) Dressing-Upper body Patient retrieves clothing No items: Patient applies/removes UE n/a prosthesis or orthosis: Upper Body Dressing FIM Score 5. Supv./Set-Up ([place] sets out clothes or applies pros./orth.) Dressing-lower body Patient retrieves clothing No items: Patient applies/removes LE n/a prosthesis or orthosis: Lower Body Dressing FIM Score 5. Supv./Set-Up ([place]odore sets out clothes or applies pros./orth.) - Labs CBC & Chem 7: 03/29/19 06:17 03/29/19 06:17 Labs: Laboratory Results - last 72 hr 03/23/19 03/29/19 03/29/19 17:06 06:17 06:17 WBC 7.0 RBC 4.54 Hgb 13.3 Hct 40.0 MCV 88 MCH 29 MCHC 33 RDW 15.2 Plt Count 235 Sodium 139 Potassium 4.0 Chloride 99.5 Carbon Dioxide 24 Anion Gap 20 BUN 9 Creatinine 1.2 Estimated GFR > 60 BUN/Creatinine Ratio 8 Glucose 77 POC Glucose Calcium 9.5 25-OH Vitamin D Total See scanned results TSH Free T4 03/29/19 03/30/19 03/30/19 21:38 07:24 16:53 WBC RBC Hgb Hct MCV MCH MCHC RDW Plt Count Sodium Potassium Chloride Carbon Dioxide Anion Gap BUN Creatinine Estimated GFR BUN/Creatinine Ratio Glucose POC Glucose 134 H 97 Calcium 25-OH Vitamin D Total TSH 2.620 Free T4 1.56 H 03/31/19 12:18 WBC RBC Hgb Hct MCV MCH MCHC RDW Plt Count Sodium Potassium Chloride Carbon Dioxide Anion Gap BUN Creatinine Estimated GFR BUN/Creatinine Ratio Glucose POC Glucose 107 H Calcium 25-OH Vitamin D Total TSH Free T4 Assessment and Plan M62.81 Muscle weakness: PT & OT will work on strengthening exercises to improve functional strength including mixture of closed and open kinetic chain exercises. R26.2 Difficulty walking: PT will work on gait training and proper use of assistive devices and advance as appropriate to use of stairs and outside ambulation on uneven surfaces. Z73.6 ADL dysfunction: OT will work on improving ability to perform ADLs (including assistive devices) to increase independence and decrease caregiver burden and improve functional transfers and mobility training. R26.81 Unsteadiness on feet: PT will work on improving static and dynamic sitting and standing balance as well as proper use of assistive devices to decrease risk of falls. R26.89 Abnormality of gait: PT will work to improve safety and efficiency of gait through neuromotor training and gait training along with instruction on proper use of assistive devices. R53.81 Debility: PT & OT will work on improving overall functional status to improve participation with ADLs, mobility and social involvement. R53.83 Fatigue: PT & OT will work on improving endurance through aerobic exercises and therapeutic activity while monitoring patients tolerance for activity and vital signs as needed. Hypertension: Lisinopril started for protective properties and adjust as needed CKD 2:Avoid nephrotoxic medications, monitor, stable currently and in normal range Diabetes type 2: monitor blood GLU and cont carb controlled diet, has been fairly controlled on diet. OSH A1c 6 Morbid obesity: modification of diet/lifestyle and exercise discussed Obstructive sleep apnea: CPAP, monitor Presumed CVA: Likely lacunar infarct. CT head NEG. MRI unavailable due to weight. Start secondary stroke prevention. If he is able to obtain MRI as outpatient and no CVA identified, would rec d/c ASA. May benefit from outpatient Neuro workup. Have considered SCI and other neuromuscular causes but constellation of symptoms (sudden onset of numbness in all 4 extremities with A1c 6, urinary retention of >1L multiple times without hx of frequent nocturia, balance deficit, difficulty standing/walking but preserved strength and no hx of injuries or recent illness/environmental exposure to toxins) and exam not consistent. Less likely conversion but a possibility. Urinary retention with incontinence: Nelson inserted, 1300mL out initially. Monitor and cont bladder training. Flomax Folate deficiency: replaced Vit B12 topped off, Vit D low at 16, Vit B6 pending. HLD: Statin started Thyroid panel - TSH wnl, T4 slightly elevated CXR NEG DVT ppx: Heparin Pain: Continue physical modalities in therapy and pain medications as needed to achieve functional pain control. Sleep: Monitor and address as needed. Start melatonin Bowel: Monitor and address as needed. Appetite: Monitor and address as needed. Discharge planning: Pending therapy progress and care plan meeting. Will continue discussion with therapy team, SW, patient and family. 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
[2019-03-31] MEDS: MIRALAX 3350 PO SCH (16:38)
[2019-03-31] MEDS ORDERED: MELATONIN PO PRN (21:00)
[2019-03-31] MEDS: FLOMAX PO SCH (22:11)
[2019-04-01] MEDS: HEPARIN SUB-Q SCH ×3 (06:00→22:06)
[2019-04-01] MEDS: MIRALAX 3350 PO SCH (11:22)
[2019-04-01] MEDS: HALFPRIN EC PO SCH (15:26)
[2019-04-01] MEDS: FEOSOL PO SCH (15:26)
[2019-04-01] MEDS: PROTONIX PO SCH (15:27)
[2019-04-01] MEDS: FOLVITE PO SCH (15:27)
--- NOTE | 2019-04-01 16:31 | Progress Note ---
Subjective Date of service: 04/01/19 Principal diagnosis: Difficulty walking, weakness Interval history: 39-year-old male with generalized weakness and dizziness plus right flank pain and diarrhea. Admitted to the hospital was found to be hypotensive and hyponatremic. Cardiology was consulted, Echocardiogram was obtained but do not have results. CTs of the abdomen and chest showed no acute abnormalities. CT stone protocol showed a possible 1 mm stone on the left kidney. Ultrasound of the gallbladder showed no acute abnormalities but did show fatty liver. Uncertain etiology for his weakness and loss of balance. 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 Patient and family deny any radiation or chemotherapy to the area. Also noted on exam that there is a slight right facial droop that the mother also picked up on. No other focal signs. Do not have a MRI brain or CT head available from outside hospital. At this point I'm suspecting a neurologic issue and will need to investigate records and work up further. Head CT NEG for infarct but he continues to have loss of balance, weakness pa rasthesias and urinary retention - all sudden in onset. Clinically consistent lacunar infarct likely in pontine area. Denies injury to back / neck, no viral illness or other sickness prior to incident. Would still like MRI but unavailable due to patient size. Patient is participating in therapy and making reasonable progress. Taking rest breaks as needed. -BM. Miralax ordered. Patient states he has altered taste which causes nausea from time to time but not with cereal. Happened at OSH as well. Not clear on cause or true symptom. Denies pain, palpitations, dyspnea, V, or joint pain. Continue bladder training and remove Nelson in AM. BP is improving, monitor. Discussed in team conference. Continue to build endurance and strength/balance. Will look to MT on 04/13. All records, vitals, labs and medications were reviewed. No other issues per patient, nursing or therapy. Objective - Exam Narrative Exam: MUSCULOSKELETAL SPECIALTY EXAM CONSTITUTIONAL: Well developed, well nourished, obese, appropriately groomed EENT: Hearing intact to soft voice RESPIRATORY: Clear to auscultation bilaterally, no increased work of breathing CARDIOVASCULAR: Regular Rate/ Rhythm, mild swelling in b/l feet, otherwise no edema or tenderness in BUE or BLE. All extremities warm. GI : + bowel sounds, soft, NTTP, nondistended. Nelson with good output INTEGUMENTARY: Normal, no lesion, rash, masses or bruising noted in extremities except for old scar over left shoulder MUSCULOSKELETAL: BUE and BLE normal without defect, crepitus, subluxation, effusion, arthritic changes or TTP. BUE 5/5, good ROM, with normal tone. BLE 5/5 good ROM, with normal tone NEURO: CN 2-12 grossly intact except for slight right flattening of nasolabial fold. Sensation intact but altered with numbness in all extremities. No tremor noted in 4 extremities. POSTURE and GAIT: Sitting posture good. Balance and gait decreased even with rolling walker. PSYCH: Alert, oriented x3, affect appears normal. Insight appears intact. - Constitutional Vitals: Vital Signs - 12hr 04/01/19 04/01/19 04/01/19 04:35 07:45 11:52 Temperature 36.6 C 37.3 C 36.6 C Pulse Rate 85 76 71 Respiratory 20 20 18 Rate Blood Pressure 119/55 113/67 101/55 O2 Sat by Pulse 92 91 91 Oximetry 04/01/19 15:50 Temperature 36.7 C Pulse Rate 76 Respiratory 18 Rate Blood Pressure 100/57 O2 Sat by Pulse 92 Oximetry - Allied health notes FIMS assessment as documented by PT/OT/ST: Grooming Patient cleans teeth/dentures: Yes Patient reyes/brushes hair: Yes Patient washes, rinses and Yes dries face: Patient washes, rinses and Yes dries hands: Patient shaves: Yes Patient applies make-up: No Patient performs (no make-up/ 4/4 (100%) shaving): Grooming FIM Score 6. Modified [place] (Needs equipment/device . Extra time.) Toileting Toileting Device Urinal,Bedside Commode Patient able to: Adjust clothes before,Clean self,Adjust clothes after Patient able to perform: 3/3 (100%) Toileting FIM Score 4. Minimal Assistance (Patient = 75% or more. Needs touching.) Social interaction/Memory/Problem solving Social Interaction FIM Score 7. Complete [place] (Interacts appropriately. Controls temper.) Memory FIM Score 6. Modified [place](Mild difficulty remembering people/routines.) Problem Solving FIM Score 5. Supervision (Needs cueing <10% to solve routine problems.) Transfers Mode of Locomotion: Wheelchair Bed/Chair/Wheelchair Transfers 5. Supervision (Needs supv. or set-up for FIM Score sliding board, foot rests.) Toilet Transfers FIM Score 6. Modified [place] (Uses device, special seat or more time.) Patient transferred to: Shower Shower Transfers FIM Score 5. Supervision (Needs supv. or set-up with device.) Locomotion- Stairs Device used on Stairs Handrail/s Number of Stairs Ascended/ 8 Descended Patient used handrail/support: Yes Stairs FIM Score 2. Maximal Assistance (Patient = 25% or more, 4- 6 stairs.) Locomotion- walk/wheelchair Most Frequent Mode of Wheelchair Locomotion: Ambulation Distance 153 Walking FIM Score 4. Minimal Assistance (Patient = 75% or more. Minimum of 150 ft.) Wheelchair Propulsion Distance 200 Wheelchair FIM Score 5. Supervision (Minimum 150 ft. supv./cues or 50 ft. independently.) Eating Eating FIM Score 7. Complete [place] (Cuts meat, opens containers, regular diet.) Dressing-Upper body Patient retrieves clothing No items: Patient applies/removes UE No prosthesis or orthosis: Upper Body Dressing FIM Score 5. Supv./Set-Up ([place] sets out clothes or applies pros./orth.) Dressing-lower body Patient retrieves clothing No items: Patient applies/removes LE No prosthesis or orthosis: Lower Body Dressing FIM Score 5. Supv./Set-Up ([place] sets out clothes or applies pros./orth.) - Labs CBC & Chem 7: 04/02/19 05:29 04/02/19 05:29 Labs: Laboratory Results - last 72 hr 03/23/19 03/29/19 03/30/19 17:06 21:38 07:24 POC Glucose 134 H 25-OH Vitamin D Total See scanned results TSH 2.620 Free T4 1.56 H 03/30/19 03/31/19 04/01/19 16:53 12:18 08:03 POC Glucose 97 107 H 92 25-OH Vitamin D Total TSH Free T4 Assessment and Plan M62.81 Muscle weakness: PT & OT will work on strengthening exercises to improve functional strength including mixture of closed and open kinetic chain exercises. R26.2 Difficulty walking: PT will work on gait training and proper use of assistive devices and advance as appropriate to use of stairs and outside ambulation on uneven surfaces. Z73.6 ADL dysfunction: OT will work on improving ability to perform ADLs (including assistive devices) to increase independence and decrease caregiver burden and improve functional transfers and mobility training. R26.81 Unsteadiness on feet: PT will work on improving static and dynamic si tting and standing balance as well as proper use of assistive devices to decrease risk of falls. R26.89 Abnormality of gait: PT will work to improve safety and efficiency of gait through neuromotor training and gait training along with instruction on proper use of assistive devices. R53.81 Debility: PT & OT will work on improving overall functional status to improve participation with ADLs, mobility and social involvement. R53.83 Fatigue: PT & OT will work on improving endurance through aerobic exercises and therapeutic activity while monitoring patients tolerance for activity and vital signs as needed. Hypertension: Lisinopril started for protective properties and adjust as needed CKD 2:Avoid nephrotoxic medications, monitor, stable currently and in normal range Diabetes type 2: monitor blood GLU and cont carb controlled diet, has been fairly controlled on diet. OSH A1c 6 Morbid obesity: modification of diet/lifestyle and exercise discussed Obstructive sleep apnea: CPAP, monitor Presumed CVA: Likely lacunar infarct. CT head NEG. MRI unavailable due to weight. Start secondary stroke prevention. If he is able to obtain MRI as outpatient and no CVA identified, would rec d/c ASA. May benefit from outpatient Neuro workup. Have considered SCI and other neuromuscular causes but constellation of symptoms (sudden onset of numbness in all 4 extremities with A1c 6, urinary retention of >1L multiple times without hx of frequent nocturia, balance deficit, difficulty standing/walking but preserved strength and no hx of injuries or recent illness/environmental exposure to toxins) and exam not consistent. Less likely conversion but a possibility. Urinary retention with incontinence: Nelson inserted, 1300mL out initially. Monitor and cont bladder training. Flomax Folate deficiency: replaced Vit B12 topped off, Vit D low at 16, Vit B6 pending. HLD: Statin started Thyroid panel - TSH wnl, T4 slightly elevated CXR 03/30 NEG DVT ppx: Heparin Pain: Continue physical modalities in therapy and pain medications as needed to achieve functional pain control. Sleep: Monitor and address as needed. Start melatonin Bowel: Monitor and address as needed. Appetite: Monitor and address as needed. Discharge planning: Pending therapy progress and care plan meeting. Will continue discussion with therapy team, SW, patient and family. 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
[2019-04-01] MEDS: ZESTRIL PO SCH (17:23)
[2019-04-01] MEDS: VITAMIN C PO SCH (18:28)
[2019-04-01] MEDS: FLOMAX PO SCH (22:05)
[2019-04-02 06:00] LABS: Hematocrit 38.8 % (35.5-45.6); Mean Corpuscular HGB Conc 34 % (32-34); Mean Corpuscular Volume 89 fl (84-94); Platelet Count 227 K/mm3 (140-440); Red Blood Count 4.37 M/mm3 (3.65-5.03); Red Cell Distribution Width 15.2 % (13.2-15.2)
[2019-04-02] MEDS: HEPARIN SUB-Q SCH ×3 (06:10→23:09)
[2019-04-02 06:26] LABS: Calcium 9.2 mg/dL (8.4-10.2)
[2019-04-02] MEDS: FEOSOL PO SCH (08:59)
[2019-04-02] MEDS: PROTONIX PO SCH (08:59)
[2019-04-02] MEDS: FOLVITE PO SCH (08:59)
[2019-04-02] MEDS: VITAMIN C PO SCH (08:59)
[2019-04-02] MEDS: HALFPRIN EC PO SCH (08:59)
[2019-04-02] MEDS: ZESTRIL PO SCH (09:00)
[2019-04-02] MEDS: MIRALAX 3350 PO SCH (09:00)
--- NOTE | 2019-04-02 13:25 | Progress Note ---
Subjective Date of service: 04/02/19 Principal diagnosis: Difficulty walking, weakness Interval history: 39-year-old male with generalized weakness and dizziness plus right flank pain and diarrhea. Admitted to the hospital was found to be hypotensive and hyponatremic. Cardiology was consulted, Echocardiogram was obtained but do not have results. CTs of the abdomen and chest showed no acute abnormalities. CT stone protocol showed a possible 1 mm stone on the left kidney. Ultrasound of the gallbladder showed no acute abnormalities but did show fatty liver. Uncertain etiology for his weakness and loss of balance. 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 Patient and family deny any radiation or chemotherapy to the area. Also noted on exam that there is a slight right facial droop that the mother also picked up on. No other focal signs. Do not have a MRI brain or CT head available from outside hospital. At this point I'm suspecting a neurologic issue and will need to investigate records and work up further. Head CT NEG for infarct but he continues to have loss of balance, weakness pa rasthesias and urinary retention - all sudden in onset. Clinically consistent lacunar infarct likely in pontine area. Denies injury to back / neck, no viral illness or other sickness prior to incident. Would still like MRI but unavailable due to patient size. Patient became short of breath earlier this AM with bending over. Recovered with short course of O2. Likely due to body habitus. Denied any CP or tightness at the time. I spoke to the and she stated he was complaining of chest tightness to her. I found the patient in therapy, he appears asymptomatic. He does endorse previous chest tightness. Stat cardiac labs ordered along with 12 lead. No current dyspnea. Consulted Dr Bautista. He asked that we also consult hospitalist. Patient is participating in therapy and making reasonable progress. Taking rest breaks as needed. -BM. Miralax ordered. Denies pain, palpitations, N/V, or joint pain. Continue bladder training and remove Nelson in AM. BP is improving, monitor. All records, vitals, labs and medications were reviewed. No other issues per patient, nursing or therapy. Objective - Exam Narrative Exam: MUSCULOSKELETAL SPECIALTY EXAM CONSTITUTIONAL: Well developed, well nourished, obese, appropriately groomed EENT: Hearing intact to soft voice RESPIRATORY: Clear to auscultation bilaterally, no increased work of breathing. on RA at 95- 98% CARDIOVASCULAR: Regular Rate/ Rhythm, mild swelling in b/l feet, otherwise no edema or tenderness in BUE or BLE. All extremities warm. 12 lead and enzymes pending GI : + bowel sounds, soft, NTTP, nondistended. Nelson with good output INTEGUMENTARY: Normal, no lesion, rash, masses or bruising noted in extremities except for old scar over left shoulder MUSCULOSKELETAL: BUE and BLE normal without defect, crepitus, subluxation, effusion, arthritic changes or TTP. BUE 5/5, good ROM, with normal tone. BLE 5/5 good ROM, with normal tone NEURO: CN 2-12 grossly intact except for slight right flattening of nasolabial fold. Sensation intact but altered with numbness in all extremities. No tremor noted in 4 extremities. POSTURE and GAIT: Sitting posture good. Balance and gait decreased even with rolling walker. PSYCH: Alert, oriented x3, affect appears normal. Insight appears intact. - Constitutional Vitals: Vital Signs - 12hr 04/02/19 04/02/19 04/02/19 04:39 07:45 09:00 Temperature 36.7 C 36.6 C Pulse Rate 79 90 84 Respiratory 20 18 Rate Blood Pressure 111/57 104/59 134/60 O2 Sat by Pulse 90 90 Oximetry 04/02/19 04/02/19 10:25 12:48 Temperature 36.9 C Pulse Rate 88 Respiratory 18 Rate Blood Pressure 104/66 O2 Sat by Pulse 97 93 Oximetry - Allied health notes Allied health notes reviewed: nursing, PT, OT FIMS assessment as documented by PT/OT/ST: Grooming Patient cleans teeth/dentures: Yes Patient reyes/brushes hair: Yes Patient washes, rinses and Yes dries face: Patient washes, rinses and Yes dries hands: Patient shaves: Yes Patient applies make-up: No Patient performs (no make-up/ 4/4 (100%) shaving): Grooming FIM Score 6. Modified [place] (Needs equipmen t/device . Extra time.) Toileting Toileting Device Urinal,Bedside Commode Patient able to: Adjust clothes before,Clean self,Adjust clothes after Patient able to perform: 3/3 (100%) Toileting FIM Score 4. Minimal Assistance (Patient = 75% or more. Needs touching.) Social interaction/Memory/Problem solving Social Interaction FIM Score 7. Complete [place] (Interacts appropriately. Controls temper.) Memory FIM Score 6. Modified [place](Mild difficulty remembering people/routines.) Problem Solving FIM Score 5. Supervision (Needs cueing <10% to solve routine problems.) Transfers Mode of Locomotion: Wheelchair Bed/Chair/Wheelchair Transfers 5. Supervision (Needs supv. or set-up for FIM Score sliding board, foot rests.) Toilet Transfers FIM Score 6. Modified [place] (Uses device, special seat or more time.) Patient transferred to: Shower Shower Transfers FIM Score 5. Supervision (Needs supv. or set-up with device.) Locomotion- Stairs Device used on Stairs Handrail/s Number of Stairs Ascended/ 8 Descended Patient used handrail/support: Yes Stairs FIM Score 2. Maximal Assistance (Patient = 25% or more, 4- 6 stairs.) Locomotion- walk/wheelchair Most Frequent Mode of Wheelchair Locomotion: Ambulation Distance 153 Walking FIM Score 4. Minimal Assistance (Patient = 75% or more. Minimum of 150 ft.) Wheelchair Propulsion Distance 200 Wheelchair FIM Score 5. Supervision (Minimum 150 ft. supv./cues or 50 ft. independently.) Eating Eating FIM Score 7. Complete [place] (Cuts meat, opens containers, regular diet.) Dressing-Upper body Patient retrieves clothing No items: Patient applies/removes UE No prosthesis or orthosis: Upper Body Dressing FIM Score 5. Supv./Set-Up ([place] sets out clothes or applies pros./orth.) Dressing-lower body Patient retrieves clothing No items: Patient applies/removes LE No prosthesis or orthosis: Lower Body Dressing FIM Score 5. Supv./Set-Up ([place] sets out clothes or applies pros./orth.) - Labs CBC & Chem 7: 04/02/19 05:29 04/02/19 05:29 Labs: Laboratory Results - last 72 hr 03/30/19 03/31/19 04/01/19 16:53 12:18 08:03 WBC RBC Hgb Hct MCV MCH MCHC RDW Plt Count Sodium Potassium Chloride Carbon Dioxide Anion Gap BUN Creatinine Estimated GFR BUN/Creatinine Ratio Glucose POC Glucose 97 107 H 92 Calcium Magnesium 04/01/19 04/02/19 04/02/19 21:42 05:29 05:29 WBC 7.3 RBC 4.37 Hgb 13.0 Hct 38.8 MCV 89 MCH 30 MCHC 34 RDW 15.2 Plt Count 227 Sodium 139 Potassium 4.1 Chloride 99.2 Carbon Dioxide 26 Anion Gap 18 BUN 11 Creatinine 1.5 Estimated GFR 52 BUN/Creatinine Ratio 7 Glucose 92 POC Glucose 116 H Calcium 9.2 Magnesium 2.00 04/02/19 07:54 WBC RBC Hgb Hct MCV MCH MCHC RDW Plt Count Sodium Potassium Chloride Carbon Dioxide Anion Gap BUN Creatinine Estimated GFR BUN/Creatinine Ratio Glucose POC Glucose 89 Calcium Magnesium Assessment and Plan CHEST TIGHTNESS: Uncertain if cardiac in nature but patient is at risk. Labs, 12 lead and card consult. Return to bed with O2. On ASA. M62.81 Muscle weakness: PT & OT will work on strengthening exercises to improve functional strength including mixture of closed and open kinetic chain exercises. R26.2 Difficulty walking: PT will work on gait training and proper use of assistive devices and advance as appropriate to use of stairs and outside ambulation on uneven surfaces. Z73.6 ADL dysfunction: OT will work on improving ability to perform ADLs (including assistive devices) to increase independence and decrease caregiver burden and improve functional transfers and mobility training. R26.81 Unsteadiness on feet: PT will work on improving static and dynamic sitting and standing balance as well as proper use of assistive devices to decrease risk of falls. R26.89 Abnormality of gait: PT will work to improve safety and efficiency of gait through neuromotor training and gait training along with instruction on proper use of assistive devices. R53.81 Debility: PT & OT will work on improving overall functional status to improve participation with ADLs, mobility and social involvement. R53.83 Fatigue: PT & OT will work on improving endurance through aerobic exercises and therapeutic activity while monitoring patients tolerance for activity and vital signs as needed. Hypertension: Lisinopril started for protective properties and adjust as needed CKD 2:Avoid nephrotoxic medications, monitor, stable currently and in normal range Diabetes type 2: monitor blood GLU and cont carb controlled diet, has been fairly controlled on diet. OSH A1c 6 Morbid obesity: modification of diet/lifestyle and exercise discussed Obstructive sleep apnea: CPAP, monitor Presumed CVA: Likely lacunar infarct. CT head NEG. MRI unavailable due to weight. Start secondary stroke prevention. If he is able to obtain MRI as outpatient and no CVA identified, would rec d/c ASA. May benefit from outpatient Neuro workup. Have considered SCI and other neuromuscular causes but constellation of symptoms (sudden onset of numbness in all 4 extremities with A1c 6, urinary retention of >1L multiple times without hx of frequent nocturia, balance deficit, difficulty standing/walking but preserved strength and no hx of injuries or recent illness/environmental exposure to toxins) and exam not consistent. Less likely conversion but a possibility. Urinary retention with incontinence: Nelson inserted, 1300mL out initially. M onitor and cont bladder training. Flomax Folate deficiency: replaced Vit B12 topped off, Vit D low at 16, Vit B6 pending. HLD: Statin started Thyroid panel - TSH wnl, T4 slightly elevated CXR 03/30 NEG DVT ppx: Heparin Pain: Continue physical modalities in therapy and pain medications as needed to achieve functional pain control. Sleep: Monitor and address as needed. Start melatonin Bowel: Monitor and address as needed. Appetite: Monitor and address as needed. Discharge planning: Pending therapy progress and care plan meeting. Will continue discussion with therapy team, SW, patient and family. 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
--- NOTE | 2019-04-02 14:10 | Consultation ---
History of Present Illness - Reason for Consult Consult date: 04/02/19 Requesting physician: SAJI VILLEGAS III - History of Present Illness 39 YO Male with RAUDEL on CPAP, MO, Obesity Hypoventilation, DM, HTN. Consult placed by Dr. Villegas for chest pain. Pt seen and evaluated in his room. Pt denies chest pain at time of my evaluation. Pt states "My chest wasnt hurting, its just that I felt short of breath a little bit". Pt denies fever, chills, CP, Palpitations, NVD, Trauma, BRBPR, Hemoptysis, Productive cough, skin rash or recent illl contacts. Pt has been participating in therapy. No additional reported nursing events. Past History Past Medical History: cancer, diabetes, hypertension, other (RAUDEL on CPAP, CK D2, morbid obesity, glaucoma) Past Surgical History: Other (skin cancer excision) Social history: , lives with family (2 level home), full code. denies: smoking, alcohol abuse, prescription drug abuse Family history: hypertension Medications and Allergies Allergies Allergy/AdvReac Type Severity Reaction Status Date / Time hydromorphone [From Dilaudid] Allergy Severe Anaphylaxis Verified 03/25/19 17:17 Home Medications Medication Instructions Recorded Confirmed Last Taken Type Brimonidine Tartrate [Brimonidine 1 drop OU BID 03/24/19 03/24/19 03/24/19 History Tartrate 0.2%] 1 drop Dorzolamide HCl/Timolol Maleat 1 drop OU BID 03/24/19 03/24/19 03/24/19 History 1 drop Latanoprost 0.005% [Xalatan 0.005%] 1 drop OU QPM 03/24/19 03/24/19 03/23/19 History 1 drop Netarsudil Mesylate [Rhopressa] 1 drops OU HS 03/24/19 03/24/19 03/23/19 History 1 drop Active Meds: Active Medications Acetaminophen (Tylenol) 650 mg PO Q4H PRN PRN Reason: Pain MILD(1-3)/Fever >100.5/HAGER Ascorbic Acid (Vitamin C) 500 mg PO QDAY [facility] Last Admin: 04/02/19 08:59 Dose: 500 mg Documented by: Aspirin (Halfprin Ec) 81 mg PO QDAY [facility] Last Admin: 08/09/19 08:59 Dose: 81 mg Documented by: Atorvastatin Calcium (Lipitor) 20 mg PO QHS [facility] Last Admin: 04/01/19 22:05 Dose: 20 mg Documented by: Bisacodyl (Dulcolax) 10 mg [place] QDAY PRN PRN Reason: Constipation unrelieved by MOM Ergocalciferol (Vitamin D2) 50,000 unit PO [facility] Stop: 05/04/19 10:01 Ferrous Sulfate (Feosol) 325 mg PO QDAY [facility] Last Admin: 04/02/19 08:59 Dose: 325 mg Documented by: Folic Acid (Folvite) 1 mg PO QDAY [facility] Last Admin: 04/02/19 08:59 Dose: 1 mg Documented by: Heparin Sodium (Porcine) (Heparin) 5,000 unit SUB-Q Q8HR [facility] Last Admin: 04/02/19 06:10 Dose: 5,000 unit Documented by: Hydralazine HCl (Apresoline) 10 mg PO Q6H PRN PRN Reason: Hypertension Lisinopril (Zestril) 5 mg PO QDAY [facility] Last Admin: 04/02/19 09:00 Dose: Not Given Documented by: Melatonin (Melatonin) 10 mg PO QHS PRN PRN Reason: Sleep Ondansetron HCl (Zofran Odt) 4 mg PO Q8H PRN PRN Reason: Nausea And Vomiting Pantoprazole Sodium (Protonix) 40 mg PO QDAY [facility] Last Admin: 04/02/19 08:59 Dose: 40 mg Documented by: Polyethylene Glycol (Miralax 3350) 17 gm PO QDAY [facility] Last Admin: 04/02/19 09:00 Dose: Not Given Documented by: Senna (Senokot) 8.6 mg PO Q12H PRN PRN Reason: Laxative Effect Tamsulosin HCl (Flomax) 0.4 mg PO [facility] Last Admin: 04/01/19 22:05 Dose: 0.4 mg Documented by: Review of Systems All systems: negative Cardiovascular: shortness of breath Exam - Constitutional Vitals: Temp Pulse Resp BP Pulse Ox 98.4 F 88 18 104/66 93 04/02/19 12:48 04/02/19 12:48 04/02/19 12:48 04/02/19 12:48 04/02/19 12:48 General appearance: Present: obese - EENT Eyes: Present: PERRL ENT: hearing intact, clear oral mucosa - Neck Neck: Present: supple, normal ROM - Respiratory Respiratory effort: normal Respiratory: bilateral: CTA - Cardiovascular Heart Sounds: Present: S1 & S2. Absent: rub, click - Extremities Extremities: pulses symmetrical, No edema Peripheral Pulses: within normal limits - Abdominal General gastrointestinal: Present: soft, non-tender, non-distended, normal bowel sounds Male genitourinary: Present: normal - Integumentary Integumentary: Present: clear, warm, dry - Musculoskeletal Musculoskeletal: gait normal, strength equal bilaterally - Psychiatric Psychiatric: appropriate mood/affect, intact judgment & insight - Neurologic Neurologic: CNII-XII intact, moves all extremities Results - Labs CBC & Chem 7: 04/02/19 05:29 04/02/19 05:29 Labs: Abnormal lab results 04/01/19 Range/Units 21:42 POC Glucose 116 H (70-105) Assessment and Plan - Patient Problems (1) Obesity hypoventilation syndrome Current Visit: Yes Status: Acute Plan to address problem: Supplemental oxygen, nebulizer therapy, D dimer, CTA chest, NIPPV as clinically indicated, (2) HTN (hypertension) Current Visit: Yes Status: Acute Qualifiers: Hypertension type: essential hypertension Qualified Code(s): I10 - Essential (primary) hypertension Plan to address problem: Monitor bp q shift, continue medical management (3) Diabetes Current Visit: Yes Status: Acute Plan to address problem: ADA diet, insulin, accu check, hypoglycemia protocol (4) RAUDEL (obstructive sleep apnea) Current Visit: Yes Status: Acute Plan to address problem: NIPPV, pulse oximetry, balanced diet, increased physical activity at discharge.
--- NOTE | 2019-04-02 14:13 | Consultation ---
History of Present Illness Consult date: 04/02/19 Consult reason: chest pain History of present illness: Patient is a 39-year old morbidly obese male with a history of diabetes, sleep apnea on Cpap who was recently discharged from [facility] with orthostatic hypotension now admitted to acute rehab with generalized weakness. Today, during physical therapy, patient complained of chest pain thus this cardiac consultation. Patient describes chest pain as tightness associated with shortness of breath. Symptoms were relieved with rest. Patient denies dizziness, nausea, vomiting and he denies palpitations. A stat ECG done is benign, a normal sinus rhythm. Recent echocardiogram done at [place] reports a normal LV systolic function, ejection fraction 71%. Past History Social history: , lives with family (2 level home), full code. denies: smoking, alcohol abuse, prescription drug abuse Family history: hypertension Medications and Allergies Allergies Allergy/AdvReac Type Severity Reaction Status Date / Time hydromorphone [From Dilaudid] Allergy Severe Anaphylaxis Verified 03/25/19 17:17 Home Medications Medication Instructions Recorded Confirmed Last Taken Type Brimonidine Tartrate [Brimonidine 1 drop OU BID 03/24/19 03/24/19 03/24/19 History Tartrate 0.2%] 1 drop Dorzolamide HCl/Timolol Maleat 1 drop OU BID 03/24/19 03/24/19 03/24/19 History 1 drop Latanoprost 0.005% [Xalatan 0.005%] 1 drop OU QPM 03/24/19 03/24/19 03/23/19 History 1 drop Netarsudil Mesylate [Rhopressa] 1 drops OU HS 03/24/19 03/24/19 03/23/19 History 1 drop Active Meds: Active Medications Acetaminophen (Tylenol) 650 mg PO Q4H PRN PRN Reason: Pain MILD(1-3)/Fever >100.5/HAGER Ascorbic Acid (Vitamin C) 500 mg PO QDAY [facility] Last Admin: 04/02/19 08:59 Dose: 500 mg Documented by: Aspirin (Halfprin Ec) 81 mg PO QDAY [facility] Last Admin: 04/02/19 08:59 Dose: 81 mg Documented by: Atorvastatin Calcium (Lipitor) 20 mg PO QHS [facility] Last Admin: 04/01/19 22:05 Dose: 20 mg Documented by: Bisacodyl (Dulcolax) 10 mg [place] QDAY PRN PRN Reason: Constipation unrelieved by MOM Ergocalciferol (Vitamin D2) 50,000 unit PO [facility] Stop: 05/04/19 10:01 Ferrous Sulfate (Feosol) 325 mg PO QDAY [facility] Last Admin: 04/02/19 08:59 Dose: 325 mg Documented by: Folic Acid (Folvite) 1 mg PO QDAY [facility] Last Admin: 04/02/19 08:59 Dose: 1 mg Documented by: Heparin Sodium (Porcine) (Heparin) 5,000 unit SUB-Q Q8HR [facility] Last Admin: 04/02/19 06:10 Dose: 5,000 unit Documented by: Hydralazine HCl (Apresoline) 10 mg PO Q6H PRN PRN Reason: Hypertension Lisinopril (Zestril) 5 mg PO QDAY [facility] Last Admin: 04/02/19 09:00 Dose: Not Given Documented by: Melatonin (Melatonin) 10 mg PO QHS PRN PRN Reason: Sleep Ondansetron HCl (Zofran Odt) 4 mg PO Q8H PRN PRN Reason: Nausea And Vomiting Pantoprazole Sodium (Protonix) 40 mg PO QDAY [facility] Last Admin: 04/02/19 08:59 Dose: 40 mg Documented by: Polyethylene Glycol (Miralax 3350) 17 gm PO QDAY [facility] Last Admin: 04/02/19 09:00 Dose: Not Given Documented by: Senna (Senokot) 8.6 mg PO Q12H PRN PRN Reason: Laxative Effect Tamsulosin HCl (Flomax) 0.4 mg PO [facility] Last Admin: 04/01/19 22:05 Dose: 0.4 mg Documented by: Physical Examination Vital Signs Pulse Resp 68 20 03/22/19 17:59 03/22/19 17:59 General appearance: no acute distress, obese HEENT: Positive: PERRL Neck: Positive: trachea midline Cardiac: Positive: Reg Rate and Rhythm Lungs: Positive: Decreased Breath Sounds Neuro: Positive: Grossly Intact Results 04/02/19 05:29 04/02/19 05:29 CBC 04/02/19 Range/Units 05:29 WBC 7.3 (4.5-11.0) K/mm3 RBC 4.37 (3.65-5.03) M/mm3 Hgb 13.0 (11.8-15.2) gm/dl Hct 38.8 (35.5-45.6) % Plt Count 227 (140-440) K/mm3 Comprehensive Metabolic Panel 04/02/19 Range/Units 05:29 Sodium 139 (137-145) mmol/L Potassium 4.1 (3.6-5.0) mmol/L Chloride 99.2 (98-107) mmol/L Carbon Dioxide 26 (22-30) mmol/L BUN 11 (9-20) mg/dL Creatinine 1.5 (0.8-1.5) mg/dL Glucose 92 (75-100) mg/dL Calcium 9.2 (8.4-10.2) mg/dL Assessment and Plan Generalized weakness Chest pain, atypical ECG is benign Diabetes Orthostatic hypotension RAUDEL on CPAP as an outpatient Morbidly obese Echocardiogram done at [place] 03/22/2019 reports a normal LV systolic function, ejection fraction 71%. Recommend: Trend cardiac enzymes. We will defer to internal medicine for workup of patient's shortness of breath.
[2019-04-02 14:31] LABS: Creatine Kinase MB 1.4 ng/mL (0.0-4.0)
[2019-04-02] MEDS: FLOMAX PO SCH (22:39)
[2019-04-03] MEDS: HEPARIN SUB-Q SCH ×3 (05:54→22:15)
[2019-04-03] MEDS ORDERED: DUONEB *Not for PRN Use IH SCH (10:45)
[2019-04-03] MEDS ORDERED: PROVENTIL IH PRN (11:00)
[2019-04-03] MEDS: FOLVITE PO SCH (11:05)
[2019-04-03] MEDS: HALFPRIN EC PO SCH (11:05)
[2019-04-03] MEDS: FEOSOL PO SCH (11:05)
[2019-04-03] MEDS: PROTONIX PO SCH (11:05)
[2019-04-03] MEDS: VITAMIN C PO SCH (11:05)
[2019-04-03] MEDS: ZESTRIL PO SCH (11:10)
--- NOTE | 2019-04-03 11:29 | Progress Note ---
Assessment and Plan Generalized weakness/Physical debility - Cont PT per rehab protocol Chest pain, atypical - possible GERD Vs musculoskeletal - ECG has no acute ST changes, CE normal - Echocardiogram done at [place] 03/22/2019 reported a normal LV systolic function, ejection fraction 71%. - Cardiology following, CTA chest pending Diabetes type 2, cont consistent carb diet and SSI Orthostatic hypotension, monitor closely, - Will order cortisol level, may start low dose midodrine if cortisol level normal RAUDEL with OHS, cont on CPAP at bedtime - need significant wt reduction Morbidly obese - dietary recommendation and physical exercise as appropriate Brief history: Patient is a 39-year old morbidly obese male with a history of diabetes, sleep apnea on Cpap who was recently discharged from [facility] with ort hostatic hypotension now admitted to acute rehab with generalized weakness. On 04/02, during physical therapy, patient complained of chest pain thus medicine service consulted. Subjective Date of service: 04/03/19 Principal diagnosis: Difficulty walking, weakness Interval history: patient seen and examined, resting on bed denies any chest pain or SOB today Objective - Constitutional Vitals: Vital Signs - 12hr 04/03/19 04/03/19 04:08 08:00 Temperature 98.7 F 97.7 F Pulse Rate 85 77 Respiratory 18 18 Rate Blood Pressure 94/55 Blood Pressure 94/52 [Right] O2 Sat by Pulse 96 Oximetry General appearance: Present: no acute distress, obese - EENT Eyes: PERRL, EOM intact ENT: hearing intact, clear oral mucosa Ears: bilateral: normal - Neck Neck: supple, normal ROM - Respiratory Respiratory effort: normal Respiratory: bilateral: CTA - Cardiovascular Rhythm: regular Heart Sounds: Present: S1 & S2. Absent: gallop, rub Extremities: pulses intact, No edema, normal color, Full ROM - Gastrointestinal General gastrointestinal: Present: soft, non-tender, non-distended, normal bowel sounds - Integumentary Integumentary: clear, warm, dry - Musculoskeletal Musculoskeletal: 1, strength equal bilaterally - Neurologic Neurologic: moves all extremities - Psychiatric Psychiatric: memory intact, appropriate mood/affect, intact judgment & insight - Labs CBC & Chem 7: 04/02/19 05:29 04/02/19 05:29 Labs: Abnormal lab results 04/02/19 Range/Units 15:14 D-Dimer 293.16 H (0-234) ng/mlDDU
--- NOTE | 2019-04-03 11:50 | Progress Note ---
Assessment and Plan 1. Atypical chest pain. EKG shows no acute ischemic changes serum troponin levels are normal. Echocardiogram shows normal left ventricular systolic function at 71%. Currently chest pain-free 2. Essential hypertension 3. Type 2 diabetes mellitus 4. Obstructive sleep apnea Plan. Currently stable scheduled for a chest CTA to rule out PE Subjective Date of service: 04/03/19 Principal diagnosis: Difficulty walking, weakness Interval history: No cardiac symptoms Objective Vital Signs Temp Pulse Resp BP BP Pulse Ox 04/03/19 08:00 97.7 F 77 18 94/52 04/03/19 04:08 98.7 F 85 18 94/55 96 04/02/19 19:41 97.9 F 66 20 117/50 92 04/02/19 19:26 99 04/02/19 16:25 98.1 F 74 18 107/59 97 04/02/19 12:48 98.4 F 88 18 104/66 93 - Physical Examination General: Appears Well, Other (obese) HEENT: Positive: PERRL Neck: Positive: trachea midline Cardiac: Positive: Regular Rate, S1/S2, PMI, Laterally Displaced. Negative: S3, S4 Lungs: Positive: clear to auscultation, No Wheeze, Rales, Rhonchi Neuro: Positive: Grossly Intact Abdomen: Positive: Unremarkable, Active Bowel Sounds Extremities: Absent: edema - Labs and Meds Cardiac Enzymes 04/02/19 Range/Units 13:54 CK-MB (CK-2) 1.4 (0.0-4.0) ng/mL
--- NOTE | 2019-04-03 12:33 | Cat Scan Report ---
CTA CHEST WITH IV CONTRAST INDICATION / CLINICAL INFORMATION: CP, SOB. TECHNIQUE: Axial CT images were obtained through the chest after injection of 60 mL Omnipaque 350 IV contrast. 3 plane MIP and/or 3D reconstructions were produced. All CT scans at this location are performed using CT dose reduction for ALARA by means of automated exposure control. COMPARISON: None available. FINDINGS: Quality of the study is fair due to reduced contrast bolus due to suboptimal IV. PULMONARY ARTERIES: No definite pulmonary emboli identified. THORACIC AORTA: No significant abnormality. HEART: No significant abnormality. CORONARY ARTERIES: No significant calcification. PLEURA: No pleural effusion. No pneumothorax. LYMPH NODES: No significant adenopathy. LUNGS: No acute air space or interstitial disease. Mild bibasilar bronchiectasis with mild diffuse br onchial wall thickening. ADDITIONAL FINDINGS: None. UPPER ABDOMEN: No acute findings. SKELETAL STRUCTURES: No significant osseous abnormality. IMPRESSION: 1. No CT evidence for pulmonary embolism. 2. No acute airspace disease. 2. Mild bibasilar bronchiectasis with mild diffuse bronchial wall thickening which could represent br onchitis. Signer Name: Bj Jackson MD Signed: 04/03/2019 12:29 PM Workstation Name: [id number]
[2019-04-03] MEDS: MIRALAX 3350 PO SCH (14:11)
[2019-04-03] MEDS: ZITHROMAX PO SCH (22:13)
[2019-04-03] MEDS: FLOMAX PO SCH (22:15)
[2019-04-04] MEDS: HEPARIN SUB-Q SCH ×3 (05:21→21:22)
--- NOTE | 2019-04-04 08:36 | Progress Note ---
Assessment and Plan Generalized weakness/Physical debility - Cont PT per rehab protocol Acute bronchitis, placed on zithromax Chest pain, atypical - possible GERD Vs musculoskeletal - ECG has no acute ST changes, CE normal - Echocardiogram done at [place] 03/22/2019 reported a normal LV systolic function, ejection fraction 71%. - Cardiology following, CTA chest normal - no PE Diabetes type 2, cont consistent carb diet and SSI Orthostatic hypotension, monitor closely, - stop lisinopril - follow am cortisol level, may start low dose midodrine if cortisol level normal RAUDEL with OHS, cont on CPAP at bedtime - need significant wt reduction Morbidly obese - dietary recommendation and physical exercise as appropriate Brief history: Patient is a 39-year old morbidly obese male with a history of diabetes, sleep apnea on Cpap who was recently discharged from [facility] with orthostatic hypotension now admitted to acute rehab with generalized weakness. On 04/02, during physical therapy, patient complained of chest pain thus medicine service consulted. Subjective Date of service: 04/04/19 Principal diagnosis: Difficulty walking, weakness Interval history: patient seen and examined, resting on bed denies any chest pain or SOB today Objective - Exam Narrative Exam: General appearance: Present: no acute distress, obese - EENT Eyes: PERRL, EOM intact ENT: hearing intact, clear oral mucosa Ears: bilateral: normal - Neck Neck: supple, normal ROM - Respiratory Respiratory effort: normal Respiratory: bilateral: CTA - Cardiovascular Rhythm: regular Heart Sounds: Present: S1 & S2. Absent: gallop, rub Extremities: pulses intact, No edema, normal color, Full ROM - Gastrointestinal General gastrointestinal: Present: soft, non-tender, non-distended, normal bowel sounds - Integumentary Integumentary: clear, warm, dry - Musculoskeletal Musculoskeletal: 1, strength equal bilaterally - Neurologic Neurologic: moves all extremities - Psychiatric Psychiatric: memory intact, appropriate mood/affect, intact judgment & insight - Constitutional Vitals: Vital Signs - 12hr 04/03/19 04/03/19 21:19 21:21 Respiratory 16 Rate O2 Sat by Pulse 96 96 Oximetry - Labs CBC & Chem 7: 04/02/19 05:29 04/02/19 05:29 Labs: Abnormal lab results 04/03/19 Range/Units 12:21 POC Glucose 115 H (70-105)
[2019-04-04] MEDS: PROTONIX PO SCH (08:52)
[2019-04-04] MEDS: VITAMIN C PO SCH (08:52)
[2019-04-04] MEDS: HALFPRIN EC PO SCH (08:52)
[2019-04-04] MEDS: FEOSOL PO SCH (08:52)
[2019-04-04] MEDS: ZITHROMAX PO SCH (08:52)
[2019-04-04] MEDS: FOLVITE PO SCH (08:52)
[2019-04-04] MEDS: MIRALAX 3350 PO SCH (08:52)
--- NOTE | 2019-04-04 11:23 | Progress Note ---
Assessment and Plan 1. Atypical chest pain. EKG shows no acute ischemic changes serum troponin levels are normal. Echocardiogram shows normal left ventricular systolic function at 71%. Currently chest pain-free 2. Essential hypertension 3. Type 2 diabetes mellitus 4. Obstructive sleep apnea 5. Severe obesity Plan. Currently stable CTA of the chest was negative for PE. Continue rehab Subjective Date of service: 04/04/19 Principal diagnosis: Difficulty walking, weakness Interval history: No cardiac symptoms Objective Vital Signs Temp Pulse Resp BP BP Pulse Ox 04/04/19 07:58 97.5 F L 84 20 116/62 91 04/03/19 21:21 96 04/03/19 21:19 16 96 04/03/19 20:03 98.6 F 85 18 102/61 93 04/03/19 15:54 98 F 79 18 108/60 04/03/19 12:34 97.4 F L 88 18 99/66 - Physical Examination General: Appears Well, Other (obese) HEENT: Positive: PERRL Neck: Positive: trachea midline Cardiac: Positive: Regular Rate, S1/S2, PMI, Laterally Displaced. Negative: S3, S4 Lungs: Positive: Normal Breath Sounds, No Wheeze, Rales, Rhonchi Neuro: Positive: Grossly Intact Abdomen: Positive: Unremarkable, Active Bowel Sounds Extremities: Absent: edema
--- NOTE | 2019-04-04 16:58 | Progress Note ---
Subjective Date of service: 04/04/19 Principal diagnosis: Difficulty walking, urine retention, poor balance Interval history: 39-year-old male with generalized weakness and dizziness plus right flank pain and diarrhea. Admitted to the hospital was found to be hypotensive and hyponatremic. Cardiology was consulted, Echocardiogram was obtained but do not have results. CTs of the abdomen and chest showed no acute abnormalities. CT stone protocol showed a possible 1 mm stone on the left kidney. Ultrasound of the gallbladder showed no acute abnormalities but did show fatty liver. Uncertain etiology for his weakness and loss of balance. 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 Patient and family deny any radiation or chemotherapy to the area. Also noted on exam that there is a slight right faci al droop that the mother also picked up on. No other focal signs. Do not have a MRI brain or CT head available from outside hospital. At this point I'm suspecting a neurologic issue and will need to investigate records and work up further. Head CT NEG for infarct but he continues to have loss of balance, weakness parasthesias and urinary retention - all sudden in onset. Clinically consistent lacunar infarct likely in pontine area. Denies injury to back / neck, no viral illness or other sickness prior to incident. Would still like MRI but unavailable due to patient size. Work up NEG for cardiac event. Also NEG for PE. Placed on Z Pack for bronchitis. Appreciate assistance. Denies orthostatic changes. PO intake still low but improved. States he feels better today. Patient is participating in therapy and making reasonable progress. Taking rest breaks as needed. -BM. Miralax ordered. Denies pain, palpitations, N/V, or joint pain. Escalante replaced Friday evening due to no UOP, will get urology consult Friday. BP is improving, monitor. All records, vitals, labs and medications were reviewed. No other issues per patient, nursing or therapy. Objective - Exam Narrative Exam: MUSCULOSKELETAL SPECIALTY EXAM CONSTITUTIONAL: Well developed, well nourished, obese, appropriately groomed EENT: Hearing intact to soft voice RESPIRATORY: Clear to auscultation bilaterally, no increased work of breathing. CARDIOVASCULAR: Regular Rate/ Rhythm, mild swelling in b/l feet, otherwise no edema or tender ness in BUE or BLE. All extremities warm. GI : + bowel sounds, soft, NTTP, nondistended. Escalante with good output INTEGUMENTARY: Normal, no lesion, rash, masses or bruising noted in extremities except for old scar over left shoulder MUSCULOSKELETAL: BUE and BLE normal without defect, crepitus, subluxation, effusion, arthritic changes or TTP. BUE 5/5, good ROM, with normal tone. BLE 5/5 good ROM, with normal tone NEURO: CN 2-12 grossly intact except for slight right flattening of nasolabial fold. Sensation intact but altered with numbness in all extremities. No tremor noted in 4 extremities. POSTURE and GAIT: Sitting posture good. Balance and gait decreased even with rolling walker. PSYCH: Alert, oriented x3, affect appears normal. Insight appears intact. - Constitutional Vitals: Vital Signs - 12hr 04/04/19 04/04/19 04/04/19 07:58 11:29 11:31 Temperature 36.4 C L 36.3 C L 36.3 C L Pulse Rate 84 95 H 91 H Respiratory 20 22 22 Rate Blood Pressure 116/62 95/66 112/67 O2 Sat by Pulse 91 94 96 Oximetry - Allied health notes Allied health notes reviewed: nursing, PT, OT FIMS assessment as documented by PT/OT/ST: Grooming Patient cleans teeth/dentures: Yes Patient reyes/brushes hair: Yes Patient washes, rinses and Yes dries face: Patient washes, rinses and Yes dries hands: Patient shaves: Yes Patient applies make-up: No Patient performs (no make-up/ 4/4 (100%) shaving): Grooming FIM Score 6. Modified [place] (Needs equipment/device . Extra time.) Toileting Toileting Device Urinal,Bedside Commode Patient able to: Adjust clothes before,Clean self,Adjust clothes after Patient able to perform: 3/3 (100%) Toileting FIM Score 5. Supv./Set-Up (Needs stand-by, set-up, applying prosth/orth.) Social interaction/Memory/Problem solving Social Interaction FIM Score 7. Complete [place] (Interacts appropriately. Controls temper.) Memory FIM Score 6. Modified [place](Mild difficulty remembering people/routines.) Problem Solving FIM Score 5. Supervision (Needs cueing <10% to solve routine problems.) Transfers Mode of Locomotion: Wheelchair Bed/Chair/Wheelchair Transfers 6. Modified [place] (Uses device, sliding FIM Score board, prosth./orth.) Toilet Transfers FIM Score 6. Modified [place] (Uses device, special seat or more time.) Patient transferred to: Shower Shower Transfers FIM Score 5. Supervision (Needs supv. or set-up with device.) Locomotion- Stairs Device used on Stairs Handrail/s Number of Stairs Ascended/ 8 Descended Patient used handrail/support: Yes Stairs FIM Score 2. Maximal Assistance (Patient = 25% or more, 4- 6 stairs.) Locomotion- walk/wheelchair Most Frequent Mode of Wheelchair Locomotion: Ambulation Distance 153 Walking FIM Score 4. Minimal Assistance (Patient = 75% or more. Minimum of 150 ft.) Wheelchair Propulsion Distance 15 Wheelchair FIM Score 1. Total Assistance (Pt. < 25%, 2 or more person assist, or <50 ft.) Eating Eating FIM Score 7. Complete [place] (Cuts meat, opens containers, regular diet.) Dressing-Upper body Patient retrieves clothing No items: Patient applies/removes UE No prosthesis or orthosis: Upper Body Dressing FIM Score 5. Supv./Set-Up ([place] sets out clothes or applies pros./orth.) Dressing-lower body Patient retrieves clothing No items: Patient applies/removes LE No prosthesis or orthosis: Lower Body Dressing FIM Score 5. Supv./Set-Up ([place] sets out clothes or applies pros./orth.) - Labs CBC & Chem 7: 04/02/19 05:29 04/02/19 05:29 Labs: Laboratory Results - last 72 hr 04/01/19 04/02/19 04/02/19 21:42 05:29 05:29 WBC 7.3 RBC 4.37 Hgb 13.0 Hct 38.8 MCV 89 MCH 30 MCHC 34 RDW 15.2 Plt Count 227 D-Dimer Sodium 139 Potassium 4.1 Chloride 99.2 Carbon Dioxide 26 Anion Gap 18 BUN 11 Creatinine 1.5 Estimated GFR 52 BUN/Creatinine Ratio 7 Glucose 92 POC Glucose 116 H Calcium 9.2 Magnesium 2.00 Total Creatine Kinase CK-MB (CK-2) CK-MB (CK-2) Rel Index Troponin T NT-Pro-B Natriuret Pep 04/02/19 04/02/19 04/02/19 07:54 13:54 15:14 WBC RBC Hgb Hct MCV MCH MCHC RDW Plt Count D-Dimer 293.16 H Sodium Potassium Chloride Carbon Dioxide Anion Gap BUN Creatinine Estimated GFR BUN/Creatinine Ratio Glucose POC Glucose 89 Calcium Magnesium Total Creatine Kinase 143 CK-MB (CK-2) 1.4 CK-MB (CK-2) Rel Index 0.9 Troponin T < 0.010 NT-Pro-B Natriuret Pep 04/02/19 04/03/19 04/03/19 15:14 12:21 16:24 WBC RBC Hgb Hct MCV MCH MCHC RDW Plt Count D-Dimer Sodium Potassium Chloride Carbon Dioxide Anion Gap BUN Creatinine Estimated GFR BUN/Creatinine Ratio Glucose POC Glucose 115 H 96 Calcium Magnesium Total Creatine Kinase CK-MB (CK-2) CK-MB (CK-2) Rel Index Troponin T NT-Pro-B Natriuret Pep 24.94 04/03/19 04/04/19 21:48 08:06 WBC RBC Hgb Hct MCV MCH MCHC RDW Plt Count D-Dimer Sodium Potassium Chloride Carbon Dioxide Anion Gap BUN Creatinine Estimated GFR BUN/Creatinine Ratio Glucose POC Glucose 100 94 Calcium Magnesium Total Creatine Kinase CK-MB (CK-2) CK-MB (CK-2) Rel Index Troponin T NT-Pro-B Natriuret Pep Assessment and Plan M62.81 Muscle weakness: PT & OT will work on strengthening exercises to improve functional strength including mixture of closed and open kinetic chain exercises. R26.2 Difficulty walking: PT will work on gait training and proper use of assistive devices and advance as appropriate to use of stairs and outside a mbulation on uneven surfaces. Z73.6 ADL dysfunction: OT will work on improving ability to perform ADLs (including assistive devices) to increase independence and decrease caregiver burden and improve functional transfers and mobility training. R26.81 Unsteadiness on feet: PT will work on improving static and dynamic sitting and standing balance as well as proper use of assistive devices to decrease risk of falls. R26.89 Abnormality of gait: PT will work to improve safety and efficiency of gait through neuromotor training and gait training along with instruction on proper use of assistive devices. R53.81 Debility: PT & OT will work on improving overall functional status to improve participation with ADLs, mobility and social involvement. R53.83 Fatigue: PT & OT will work on improving endurance through aerobic exercises and therapeutic activity while monitoring patients tolerance for acti vity and vital signs as needed. Hypertension: Lisinopril started for protective properties and adjust as needed CKD 2:Avoid nephrotoxic medications, monitor, stable currently and in normal range Diabetes type 2: monitor blood GLU and cont carb controlled diet, has been fairly controlled on diet. OSH A1c 6 Morbid obesity: modification of diet/lifestyle and exercise discussed Obstructive sleep apnea: CPAP, monitor Presumed CVA: Likely lacunar infarct. CT head NEG. MRI unavailable due to weight. Start secondary stroke prevention. If he is able to obtain MRI as outpatient and no CVA identified, would rec d/c ASA. May benefit from outpatient Neuro workup. Have considered SCI and other neuromuscular causes but constellation of symptoms (sudden onset of numbness in all 4 extremities with A1c 6, urinary retention of >1L multiple times without hx of frequent nocturia, balance deficit, difficulty standing/walking but preserved strength and no hx of injuries or recent illness/environmental exposure to toxins) and exam not consistent. Less likely conversion but a possibility. Urinary retention with incontinence: Escalante inserted, 1300mL out initially. Escalante removed Friday AM, unable to urinate by 1999 (I asked for escalante to be replaced if no UOP in 6hrs), Escalante replaced with about 700 out. Cont Flomax. Urology consult Friday. Folate deficiency: replaced Vit B12 topped off, Vit D low at 16, Vit B6 pending. HLD: Statin started Thyroid panel - TSH wnl, T4 slightly elevated CXR 03/30 NEG Cardiac workup NEG. PE NEG. Placed on z lanie for bronchitis. DVT ppx: Heparin Pain: Continue physical modalities in therapy and pain medications as needed to achieve functional pain control. Sleep: Monitor and address as needed. Start melatonin Bowel: Monitor and address as needed. Appetite: Monitor and address as needed. Discharge planning: Pending therapy progress and care plan meeting. Will continue discussion with therapy team, SW, patient and family. 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
[2019-04-04] MEDS: FLOMAX PO SCH (21:22)
[2019-04-05] MEDS: HEPARIN SUB-Q SCH ×3 (05:43→22:39)
[2019-04-05] MEDS: FEOSOL PO SCH (09:01)
[2019-04-05] MEDS: FOLVITE PO SCH (09:01)
[2019-04-05] MEDS: ZITHROMAX PO SCH (09:01)
[2019-04-05] MEDS: HALFPRIN EC PO SCH (09:01)
[2019-04-05] MEDS: PROTONIX PO SCH (09:01)
[2019-04-05] MEDS: VITAMIN C PO SCH (09:01)
[2019-04-05] MEDS: MIRALAX 3350 PO SCH (09:02)
--- NOTE | 2019-04-05 10:08 | Progress Note ---
Assessment and Plan Generalized weakness Chest pain, atypical ECG is benign no evidence of PE by chest CTA Diabetes Orthostatic hypotension RAUDEL on CPAP as an outpatient Morbidly obese Echocardiogram done at [facility] 03/22/2019 reports a normal LV systolic function, ejection fraction 71%. Conservative cardiac management. We will follow intermittently. Subjective Date of service: 04/05/19 Principal diagnosis: Difficulty walking, urine retention, poor balance Interval history: Patient is sitting up in wheelchair. He has no cardiac complaints. Objective Vital Signs Temp Pulse Resp BP BP Pulse Ox 04/05/19 07:39 99.0 F 89 18 107/62 94 04/05/19 07:35 95 04/05/19 04:47 87 97 04/05/19 04:46 97.8 F 88 20 114/62 94 04/05/19 00:33 97.8 F 87 20 122/56 96 04/04/19 22:00 95 04/04/19 20:52 97.7 F 79 20 96/56 95 04/04/19 17:00 97.8 F 98 H 16 103/67 94 04/04/19 16:09 97.8 F 84 18 103/67 94 04/04/19 11:31 97.4 F L 91 H 22 112/67 96 04/04/19 11:29 97.4 F L 95 H 22 95/66 94 - Physical Examination General: Appears Well, Other (obese) HEENT: Positive: PERRL Neck: Positive: trachea midline Cardiac: Positive: Reg Rate and Rhythm Lungs: Positive: Decreased Breath Sounds Neuro: Positive: Grossly Intact Abdomen: Positive: Unremarkable Extremities: Absent: edema
--- NOTE | 2019-04-05 12:56 | Progress Note ---
Subjective Date of service: 04/05/19 Principal diagnosis: Difficulty walking, weakness Interval history: 39-year-old male with generalized weakness and dizziness plus right flank pain and diarrhea. Admitted to the hospital was found to be hypotensive and hyponatremic. Cardiology was consulted, Echocardiogram was obtained but do not have results. CTs of the abdomen and chest showed no acute abnormalities. CT stone protocol showed a possible 1 mm stone on the left kidney. Ultrasound of the gallbladder showed no acute abnormalities but did show fatty liver. Uncertain etiology for his weakness and loss of balance. 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 Patient and family deny any radiation or chemotherapy to the area. Also noted on exam that there is a slight right facial droop that the mother also picked up on. No other focal signs. Do not have a MRI brain or CT head available from outside hospital. At this point I'm suspecting a neurologic issue and will need to investigate records and work up further. Head CT NEG for infarct but he continues to have loss of balance, weakness pa rasthesias and urinary retention - all sudden in onset. Clinically consistent lacunar infarct likely in pontine area. Denies injury to back / neck, no viral illness or other sickness prior to incident. Would still like MRI but unavailable due to patient size. Patient is participating in therapy and making reasonable progress. Taking rest breaks as needed. -BM. Miralax has been scheduled and suppository available. Denies pain, palpitations, N/V, or joint pain. Escalante intact, urology c onsulted. BP is stable, monitor. All records, vitals, labs and medications were reviewed. No other issues per patient, nursing or therapy. Objective - Exam Narrative Exam: MUSCULOSKELETAL SPECIALTY EXAM CONSTITUTIONAL: Well developed, well nourished, obese, appropriately groomed EENT: Hearing intact to soft voice RESPIRATORY: Clear to auscultation bilaterally, no increased work of breathing. CARDIOVASCULAR: Regular Rate/ Rhythm, mild swelling in b/l feet, otherwise no edema or tenderness in BUE or BLE. All extremities warm. GI / : + bowel sounds, soft, NTTP, nondistended. Escalante with good output INTEGUMENTARY: Normal, no lesion, rash, masses or bruising noted in extremities except for old scar over left shoulder MUSCULOSKELETAL: BUE and BLE normal without defect, crepitus, subluxation, effusion, arthritic changes or TTP. BUE 5/5, good ROM, with normal tone. BLE 5/5 good ROM, with normal tone NEURO: CN 2-12 grossly intact except for slight right flattening of nasolabial fold. Sensation intact but altered with numbness in all extremities. No tremor noted in 4 extremities. POSTURE and GAIT: Sitting posture good. Balance and gait decreased even with rolling walker. PSYCH: Alert, oriented x3, affect appears normal. Insight appears intact. - Constitutional Vitals: Vital Signs - 12hr 04/05/19 04/05/19 04/05/19 04:46 04:47 07:35 Temperature 36.6 C Pulse Rate 88 87 Respiratory 20 Rate Blood Pressure 114/62 O2 Sat by Pulse 94 97 95 Oximetry 04/05/19 07:39 Temperature 37.2 C Pulse Rate 89 Respiratory 18 Rate Blood Pressure 107/62 O2 Sat by Pulse 94 Oximetry - Allied health notes Allied health notes reviewed: nursing, PT, OT FIMS assessment as documented by PT/OT/ST: Grooming Patient cleans teeth/dentures: Yes Patient reyes/brushes hair: Yes Patient washes, rinses and Yes dries face: Patient washes, rinses and Yes dries hands: Patient shaves: Yes Patient applies make-up: No Patient performs (no make-up/ / (100%) shaving): Grooming FIM Score 6. Modified [place] (Needs equipment/device . Extra time.) Toileting Toileting Device Urinal,Bedside Commode Patient able to: Adjust clothes before,Clean self,Adjust clothes after Patient able to perform: 3/3 (100%) Toileting FIM Score 5. Supv./Set-Up (Needs stand-by, set-up, applying prosth/orth.) Social interaction/Memory/Problem solving Social Interaction FIM Score 7. Complete [place] (Interacts appropriately. Controls temper.) Memory FIM Score 6. Modified [place](Mild difficulty remembering people/routines.) Problem Solving FIM Score 5. Supervision (Needs cueing <10% to solve routine problems.) Transfers Mode of Locomotion: Wheelchair Bed/Chair/Wheelchair Transfers 6. Modified [place] (Uses device, sliding FIM Score board, prosth./orth.) Toilet Transfers FIM Score 6. Modified [place] (Uses device, special seat or more time.) Patient transferred to: Shower Shower Transfers FIM Score 5. Supervision (Needs supv. or set-up with device.) Locomotion- Stairs Device used on Stairs Handrail/s Number of Stairs Ascended/ 8 Descended Patient used handrail/support: Yes Stairs FIM Score 2. Maximal Assistance (Patient = 25% or more, 4- 6 stairs.) Locomotion- walk/wheelchair Most Frequent Mode of Wheelchair Locomotion: Ambulation Distance 153 Walking FIM Score 4. Minimal Assistance (Patient = 75% or more. Minimum of 150 ft.) Wheelchair Propulsion Distance 15 Wheelchair FIM Score 1. Total Assistance (Pt. < 25%, 2 or more person assist, or <50 ft.) Eating Eating FIM Score 7. Complete [place] (Cuts meat, opens containers, regular diet.) Dressing-Upper body Patient retrieves clothing No items: Patient applies/removes UE No prosthesis or orthosis: Upper Body Dressing FIM Score 5. Supv./Set-Up ([place] sets out clothes or applies pros./orth.) Dressing-lower body Patient retrieves clothing No items: Patient applies/removes LE No prosthesis or orthosis: Lower Body Dressing FIM Score 5. Supv./Set-Up ([place] sets out clothes or applies pros./orth.) - Labs CBC & Chem 7: 04/02/19 05:29 04/02/19 05:29 Labs: Laboratory Results - last 72 hr 04/02/19 04/02/19 04/02/19 13:54 15:14 15:14 D-Dimer 293.16 H POC Glucose Total Creatine Kinase 143 CK-MB (CK-2) 1.4 CK-MB (CK-2) Rel Index 0.9 Troponin T < 0.010 NT-Pro-B Natriuret Pep 24.94 04/03/19 04/03/19 04/03/19 12:21 16:24 21:48 D-Dimer POC Glucose 115 H 96 100 Total Creatine Kinase CK-MB (CK-2) CK-MB (CK-2) Rel Index Troponin T NT-Pro-B Natriuret Pep 04/04/19 04/04/19 04/05/19 08:06 22:32 08:03 D-Dimer POC Glucose 94 93 91 Total Creatine Kinase CK-MB (CK-2) CK-MB (CK-2) Rel Index Troponin T NT-Pro-B Natriuret Pep Assessment and Plan M62.81 Muscle weakness: PT & OT will work on strengthening exercises to improve functional strength including mixture of closed and open kinetic chain exercises. R26.2 Difficulty walking: PT will work on gait training and proper use of assistive devices and advance as appropriate to use of stairs and outside ambulation on uneven surfaces. Z73.6 ADL dysfunction: OT will work on improving ability to perform ADLs (including assistive devices) to increase independence and decrease caregiver burden and improve functional transfers and mobility training. R26.81 Unsteadiness on feet: PT will work on improving static and dynamic sitting and standing balance as well as proper use of assistive devices to decrease risk of falls. R26.89 Abnormality of gait: PT will work to improve safety and efficiency of gait through neuromotor training and gait training along with instruction on proper use of assistive devices. R53.81 Debility: PT & OT will work on improving overall functional status to improve participation with ADLs, mobility and social involvement. R53.83 Fatigue: PT & OT will work on improving endurance through aerobic exercises and therapeutic activity while monitoring patients tolerance for activity and vital signs as needed. Hypertension: Lisinopril started for protective properties and adjust as needed CKD 2:Avoid nephrotoxic medications, monitor, stable currently and in normal range Diabetes type 2: monitor blood GLU and cont carb controlled diet, has been fairly controlled on diet. OSH A1c 6 Morbid obesity: modification of diet/lifestyle and exercise discussed Obstructive sleep apnea: CPAP, monitor Presumed CVA: Likely lacunar infarct. CT head NEG. MRI unavailable due to weight. Start secondary stroke prevention. If he is able to obtain MRI as outpatient and no CVA identified, would rec d/c ASA. May benefit from outpatient Neuro workup. Have considered SCI and other neuromuscular causes but constellation of symptoms (sudden onset of numbness in all 4 extremities with A1c 6, urinary retention of >1L multiple times without hx of frequent nocturia, balance deficit, difficulty standing/walking but preserved strength and no hx of injuries or recent illness/environmental exposure to toxins) and exam not consistent. Less likely conversion but a possibility. Urinary retention with incontinence due to neurogenic bladder: Escalante inserted, 1300mL out initially. Escalante removed Friday 8/9 AM, unable to urinate by 1999 (I asked for escalante to be replaced if no UOP in 6hrs), Escalante replaced with about 700 out. Cont Flomax. Urology consulted. Folate deficiency: replaced Vit B12 topped off, Vit D low at 16, Vit B6 pending. HLD: Statin started Thyroid panel - TSH wnl, T4 slightly elevated CXR 03/30 NEG Cardiac workup NEG. PE NEG. Placed on z lanie for bronchitis. DVT ppx: Heparin Pain: Continue physical modalities in therapy and pain medications as needed to achieve functional pain control. Sleep: Monitor and address as needed. Start melatonin Bowel: Monitor and address as needed. Appetite: Monitor and address as needed. Discharge planning: Pending therapy progress and care plan meeting. Will continue discussion with therapy team, SW, patient and family. 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
--- NOTE | 2019-04-05 14:44 | Progress Note ---
Assessment and Plan Generalized weakness/Physical debility - Cont PT per rehab protocol Acute bronchitis, placed on zithromax for 5 days Chest pain, atypical - possible GERD Vs musculoskeletal - ECG has no acute ST changes, CE normal - Echocardiogram done at [place] 03/22/2019 reported a normal LV systolic function, ejection fraction 71%. - Cardiology following, CTA chest normal - no PE Diabetes type 2, cont consistent carb diet and SSI Orthostatic hypotension, monitor closely, - off lisinopril - follow am cortisol level, may start low dose midodrine if cortisol level normal RAUDEL with OHS, cont on CPAP at bedtime - need significant wt reduction Morbidly obese - dietary recommendation and physical exercise as appropriate Brief history: Patient is a 39-year old morbidly obese male with a history of diabetes, sleep apnea on Cpap who was recently discharged from [facility] with orthostatic hypotension now admitted to acute rehab with generalized weakness. On 04/02, during physical therapy, patient complained of chest pain thus medicine service consulted. Subjective Date of service: 04/05/19 Principal diagnosis: Difficulty walking, urine retention, poor balance Interval history: patient seen and examined, resting on bed denies any chest pain or SOB today Objective - Exam Narrative Exam: General appearance: Present: no acute distress, obese - EENT Eyes: PERRL, EOM intact ENT: hearing intact, clear oral mucosa Ears: bilateral: normal - Neck Neck: supple, normal ROM - Respiratory Respiratory effort: normal Respiratory: bilateral: CTA - Cardiovascular Rhythm: regular Heart Sounds: Present: S1 & S2. Absent: gallop, rub Extremities: pulses intact, No edema, normal color, Full ROM - Gastrointestinal General gastrointestinal: Present: soft, non-tender, non-distended, normal bowel sounds - Integumentary Integumentary: clear, warm, dry - Musculoskeletal Musculoskeletal: 1, strength equal bilaterally - Neurologic Neurologic: moves all extremities - Psychiatric Psychiatric: memory intact, appropriate mood/affect, intact judgment & insight - Constitutional Vitals: Vital Signs - 12hr 04/05/19 04/05/19 04/05/19 04:46 04:47 07:35 Temperature 97.8 F Pulse Rate 88 87 Respiratory 20 Rate Blood Pressure 114/62 O2 Sat by Pulse 94 97 95 Oximetry 04/05/19 07:39 Temperature 99.0 F Pulse Rate 89 Respiratory 18 Rate Blood Pressure 107/62 O2 Sat by Pulse 94 Oximetry - Labs CBC & Chem 7: 04/02/19 05:29 04/02/19 05:29
[2019-04-05] MEDS: FLOMAX PO SCH (22:38)
[2019-04-06] MEDS: HEPARIN SUB-Q SCH ×3 (05:33→22:07)
--- NOTE | 2019-04-06 07:38 | Progress Note ---
Subjective Date of service: 04/06/19 Principal diagnosis: Difficulty walking, urine retention, poor balance Interval history: 39-year-old male with generalized weakness and dizziness plus right flank pain and diarrhea. Admitted to the hospital was found to be hypotensive and hyponatremic. Cardiology was consulted, Echocardiogram was obtained but do not have results. CTs of the abdomen and chest showed no acute abnormalities. CT stone protocol showed a possible 1 mm stone on the left kidney. Ultrasound of the gallbladder showed no acute abnormalities but did show fatty liver. Uncertain etiology for his weakness and loss of balance. 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 Patient and family deny any radiation or chemotherapy to the area. Also noted on exam that there is a slight right faci al droop that the mother also picked up on. No other focal signs. Do not have a MRI brain or CT head available from outside hospital. At this point I'm suspecting a neurologic issue and will need to investigate records and work up further. Head CT NEG for infarct but he continues to have loss of balance, weakness parasthesias and urinary retention - all sudden in onset. Clinically consistent lacunar infarct likely in pontine area. Denies injury to back / neck, no viral illness or other sickness prior to incident. Would still like MRI but unavailable due to patient size. Patient is participating in therapy and making reasonable progress. Taking rest breaks as needed. +BM. Denies pain, palpitations, N/V, or joint pain. Escalante intact, urology rec outpatient follow up in 1 month for neurogenic bladder, maintain Escalante. Still with decreased PO intake. Called last night for GLU of 69. Overall GLU has been ok with a few outliers - will d/c and just have prn checks. BP is stable, monitor. All records, vitals, labs and medications were reviewed. No other issues per patient, nursing or therapy. Objective - Exam Narrative Exam: MUSCULOSKELETAL SPECIALTY EXAM CONSTITUTIONAL: Well developed, well nourished, obese, appropriately groomed EENT: Hearing intact to soft voice RESPIRATORY: Clear to auscultation bilaterally, no increased work of breathing. CARDIOVASCULAR: Regular Rate/ Rhythm, mild swelling in b/l feet, otherwise no edema or tenderness in BUE or BLE. All extremities warm. GI / : + bowel sounds, soft, NTTP, nondistended. Escalante with good output INTEGUMENTARY: Normal, no lesion, rash, masses or bruising noted in extremities except for old scar over left shoulder MUSCULOSKELETAL: BUE and BLE normal without defect, crepitus, subluxation, effusion, arthritic changes or TTP. BUE 5/5, good ROM, with normal tone. BLE 5/5 good ROM, with normal tone NEURO: CN 2-12 grossly intact except for slight right flattening of nasolabial fold. Sensation intact but altered with numbness in all extremities. No tremor noted in 4 extremities. POSTURE and GAIT: Sitting posture good. Balance and gait decreased even with rolling walker. Endurance improving PSYCH: Alert, oriented x3, affect appears normal. Insight appears intact. - Constitutional Vitals: Vital Signs - 12hr 04/05/19 04/05/19 04/06/19 20:17 20:19 00:50 Temperature 36.7 C 36.7 C Pulse Rate 88 88 68 Respiratory 18 18 Rate Blood Pressure 110/65 125/71 [Right] O2 Sat by Pulse 94 94 98 Oximetry 04/06/19 04:35 Temperature 36.8 C Pulse Rate 88 Respiratory 16 Rate Blood Pressure 112/64 [Right] O2 Sat by Pulse 96 Oximetry - Allied health notes Allied health notes reviewed: nursing, PT, OT FIMS assessment as documented by PT/OT/ST: Grooming Patient cleans teeth/dentures: Yes Patient reyes/brushes hair: Yes Patient washes, rinses and Yes dries face: Patient washes, rinses and Yes dries hands: Patient shaves: Yes Patient applies make-up: No Patient performs (no make-up/ / (100%) shaving): Grooming FIM Score 6. Modified Lam[place] (Needs equipment/device . Extra time.) Toileting Toileting Device Urinal,Bedside Commode Patient able to: Adjust clothes before,Clean self,Adjust clothes after Patient able to perform: 3/3 (100%) Toileting FIM Score 7. Complete Lamar (Cleans self and adjusts clothing.) Social interaction/Memory/Problem solving Social Interaction FIM Score 7. Complete Lamar (Interacts appropriately. Controls temper.) Memory FIM Score 6. Modified Lamar(Mild difficulty remembering people/routines.) Problem Solving FIM Score 5. Supervision (Needs cueing <10% to solve routine problems.) Transfers Mode of Locomotion: Wheelchair Bed/Chair/Wheelchair Transfers 6. Modified Lamar (Uses device, sliding FIM Score board, prosth./orth.) Toilet Transfers FIM Score 6. Modified Lamar (Uses device, special seat or more time.) Patient transferred to: Shower Tub Transfers FIM Score 6. Modified Lamar (Needs slide board, grab bar, tub bench.) Shower Transfers FIM Score 6. Modified Lamar (Needs slide board, grab bar, tub bench.) Locomotion- Stairs Device used on Stairs Handrail/s Number of Stairs Ascended/ 8 Descended Patient used handrail/support: Yes Stairs FIM Score 2. Maximal Assistance (Patient = 25% or more, 4- 6 stairs.) Locomotion- walk/wheelchair Most Frequent Mode of Wheelchair Locomotion: Ambulation Distance 170 Walking FIM Score 5. Supervision (Minimum 150 ft. supv./cues or 50 ft. independently.) Wheelchair Propulsion Distance 15 Wheelchair FIM Score 1. Total Assistance (Pt. < 25%, 2 or more person assist, or <50 ft.) Eating Eating FIM Score 7. Complete Lamar (Cuts meat, opens containers, regular diet.) Dressing-Upper body Patient retrieves clothing No items: Patient applies/removes UE DNA prosthesis or orthosis: Upper Body Dressing FIM Score 5. Supv./Set-Up ([place] sets out clothes or applies pros./orth.) Dressing-lower body Patient retrieves clothing No items: Patient applies/removes LE DNA prosthesis or orthosis: Lower Body Dressing FIM Score 5. Supv./Set-Up ([place] sets out clothes or applies pros./orth.) - Labs CBC & Chem 7: 04/02/19 05:29 04/02/19 05:29 Labs: Laboratory Results - last 72 hr 04/03/19 04/03/19 04/03/19 12:21 16:24 21:48 POC Glucose 115 H 96 100 04/04/19 04/04/19 04/05/19 08:06 22:32 08:03 POC Glucose 94 93 91 04/05/19 04/05/19 21:28 23:15 POC Glucose 69 L 108 H Assessment and Plan Presumed CVA: Likely lacunar infarct. CT head NEG. MRI unavailable due to weight. Start secondary stroke prevention. If he is able to obtain MRI as outpatient and no CVA identified, would rec d/c ASA. May benefit from outpatient Neuro workup. Have considered SCI and other neuromuscular causes but constellation of symptoms (sudden onset of numbness in all 4 extremities with A1c 6, urinary retention of >1L multiple times without hx of frequent nocturia, balance deficit, difficulty standing/walking but preserved strength and no hx of injuries or recent illness/environmental exposure to toxins) and exam not consistent. Less likely conversion but a possibility. Urinary retention with incontinence due to neurogenic bladder: Escalante inserted, 1300mL out initially. Escalante removed Friday 8/ AM, unable to urinate by 1999 (I asked for escalante to be replaced if no UOP in 6hrs), Escalante replaced with about 700 out. Cont Flomax. Urology requested follow up in 1 month. Maintain Escalante until then. M62.81 Muscle weakness: PT & OT will work on strengthening exercises to improve functional strength including mixture of closed and open kinetic chain exercises. R26.2 Difficulty walking: PT will work on gait training and proper use of assistive devices and advance as appropriate to use of stairs and outside ambulation on uneven surfaces. Z73.6 ADL dysfunction: OT will work on improving ability to perform ADLs (including assistive devices) to increase independence and decrease caregiver burden and improve functional transfers and mobility training. R26.81 Unsteadiness on feet: PT will work on improving static and dynamic sitting and standing balance as well as proper use of assistive devices to decrease risk of falls. R26.89 Abnormality of gait: PT will work to improve safety and efficiency of gait through neuromotor training and gait training along with instruction on proper use of assistive devices. R53.81 Debility: PT & OT will work on improving overall functional status to improve participation with ADLs, mobility and social involvement. R53.83 Fatigue: PT & OT will work on improving endurance through aerobic exercises and therapeutic activity while monitoring patients tolerance for activity and vital signs as needed. Hypertension: normalized off of medication CKD 2:Avoid nephrotoxic medications, monitor, stable currently and in normal range Diabetes type 2: monitor blood GLU and cont carb controlled diet, has been fairly controlled on diet. OSH A1c 6 Morbid obesity: modification of diet/lifestyle and exercise discussed Obstructive sleep apnea: CPAP, monitor Folate deficiency: replaced Vit B12 topped off, Vit D low at 16, Vit B6 pending. HLD: Statin started Thyroid panel - TSH wnl, T4 slightly elevated CXR 03/30 NEG Cardiac workup NEG. PE NEG. Placed on z lanie for bronchitis. DVT ppx: Heparin Pain: Continue physical modalities in therapy and pain medications as needed to achieve functional pain control. Sleep: Monitor and address as needed. Start melatonin Bowel: Monitor and address as needed. Appetite: Monitor and address as needed. Discharge planning: Pending therapy progress and care plan meeting. Will continue discussion with therapy team, SW, patient and family. 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
--- NOTE | 2019-04-06 12:38 | Progress Note ---
Assessment and Plan Assessment and plan: Generalized weakness/Physical debility - Cont PT per rehab protocol Acute bronchitis, placed on zithromax for 5 days Chest pain, atypical - possible GERD Vs musculoskeletal - ECG has no acute ST changes, CE normal - Echocardiogram done at [place] 03/22/2019 reported a normal LV systolic function, ejection fraction 71%. - Cardiology following, CTA chest normal - no PE Diabetes type 2, cont consistent carb diet and SSI Orthostatic hypotension, monitor closely, - off lisinopril - follow am cortisol level, may start low dose midodrine if cortisol level normal RAUDEL with OHS, cont on CPAP at bedtime - need significant wt reduction Morbidly obese - dietary recommendation and physical exercise as appropriate Brief history: Patient is a 39-year old morbidly obese male with a history of diabetes, sleep apnea on Cpap who was recently discharged from [facility] with orthostatic hypotension now admitted to acute rehab with generalized weakness. On 04/02, during physical therapy, patient complained of chest pain thus medicine service consulted. History Interval history: Sincerely and examined medical records reviewed Patient has no new complaints, feels better Vital signs noted Hospitalist Physical - Constitutional Vitals: Temp Pulse Resp BP Pulse Ox 98.1 F 99 H 18 114/63 94 04/06/19 08:01 04/06/19 08:01 04/06/19 08:01 04/06/19 08:01 04/06/19 08:01 General appearance: Present: no acute distress, obese (morbidly obese) - EENT Eyes: Present: PERRL, EOM intact - Neck Neck: Present: supple, normal ROM - Respiratory Respiratory effort: normal Respiratory: bilateral: diminished, rhonchi, negative: rales, wheezing - Cardiovascular Rhythm: regular Heart Sounds: Present: S1 & S2 - Extremities Extremities: no ischemia, No edema - Abdominal General gastrointestinal: soft, non-tender, non-distended, normal bowel sounds - Integumentary Integumentary: Present: clear, warm - Psychiatric Psychiatric: appropriate mood/affect, cooperative - Neurologic Neurologic: CNII-XII intact, moves all extremities Results - Labs CBC & Chem 7: 04/02/19 05:29 04/02/19 05:29 Labs: Laboratory Last Values WBC 7.3 K/mm3 (4.5-11.0) 04/02/19 05:29 RBC 4.37 M/mm3 (3.65-5.03) 04/02/19 05:29 Hgb 13.0 gm/dl (11.8-15.2) 04/02/19 05:29 Hct 38.8 % (35.5-45.6) 04/02/19 05:29 MCV 89 fl (84-94) 04/02/19 05:29 MCH 30 pg (28-32) 04/02/19 05:29 MCHC 34 % (32-34) 04/02/19 05:29 RDW 15.2 % (13.2-15.2) 04/02/19 05:29 Plt Count 227 K/mm3 (140-440) 04/02/19 05:29 Lymph % (Auto) 10.2 % (13.4-35.0) L 03/23/19 04:25 Gates % (Auto) 9.3 % (0.0-7.3) H 03/23/19 04:25 Eos % (Auto) 3.7 % (0.0-4.3) 03/23/19 04:25 Baso % (Auto) 0.9 % (0.0-1.8) 03/23/19 04:25 Lymph # 0.9 K/mm3 (1.2-5.4) L 03/23/19 04:25 Gates # 0.8 K/mm3 (0.0-0.8) 03/23/19 04:25 Eos # 0.3 K/mm3 (0.0-0.4) 03/23/19 04:25 Baso # 0.1 K/mm3 (0.0-0.1) 03/23/19 04:25 Seg Neutrophils % 75.9 % (40.0-70.0) H 03/23/19 04:25 Seg Neutrophils # 6.4 K/mm3 (1.8-7.7) 03/23/19 04:25 293.16 ng/mlDDU (0-234) H 04/02/19 15:14 Sodium 139 mmol/L (137-145) 04/02/19 05:29 Potassium 4.1 mmol/L (3.6-5.0) 04/02/19 05:29 Chloride 99.2 mmol/L (98-107) 04/02/19 05:29 Carbon Dioxide 26 mmol/L (22-30) 04/02/19 05:29 18 mmol/L 04/02/19 05:29 BUN 11 mg/dL (9-20) 04/02/19 05:29 1.5 mg/dL (0.8-1.5) 04/02/19 05:29 Estimated GFR 52 ml/min 04/02/19 05:29 7 % 04/02/19 05:29 Glucose 92 mg/dL (75-100) 04/02/19 05:29 POC Glucose 91 (70-105) 04/06/19 07:19 Calcium 9.2 mg/dL (8.4-10.2) 04/02/19 05:29 Magnesium 2.00 mg/dL (1.7-2.3) 04/02/19 05:29 0.40 mg/dL (0.1-1.2) 03/23/19 04:25 AST 39 units/L (5-40) 03/23/19 04:25 ALT 44 units/L (7-56) 03/23/19 04:25 73 units/L (35-129) 03/23/19 04:25 143 units/L (55-170) 04/02/19 13:54 CK-MB (CK-2) 1.4 ng/mL (0.0-4.0) 04/02/19 13:54 CK-MB (CK-2) Rel Index 0.9 (0-4) 04/02/19 13:54 < 0.010 ng/mL (0.00-0.029) 04/02/19 13:54 NT-Pro-B Natriuret Pep 24.94 pg/mL (0-450) 04/02/19 15:14 7.0 g/dL (6.3-8.2) 03/23/19 04:25 3.7 g/dL (3.9-5) L 03/23/19 04:25 1.1 % 03/23/19 04:25 Triglycerides 108 mg/dL (2-149) 03/25/19 07:09 Cholesterol 148 mg/dL (50-199) 03/25/19 07:09 107 mg/dL (50-130) 03/25/19 07:09 37 mg/dL (40-59) L 03/25/19 07:09 4.00 % 03/25/19 07:09 Vitamin B12 370.3 pg/mL (211-911) 03/23/19 17:06 25-OH Vitamin D Total See scanned results 03/23/19 17:06 <4 ng/mL 03/23/19 17:06 16 ng/mL 03/23/19 17:06 4.14 ng/mL (7.3-26.0) L 03/23/19 17:06 TSH 2.620 mlU/mL (0.270-4.200) 03/30/19 07:24 Free T4 1.56 ng/dL (0.76-1.46) H 03/30/19 07:24 Active Medications - Current Medications Current Medications: Generic Name Dose Route Start Last Admin Trade Name Freq PRN Reason Stop Dose Admin Acetaminophen 650 mg 03/22/19 15:11 Tylenol PO Q4H PRN Pain MILD(1-3)/Fever >100.5/HAGER Albuterol 2.5 mg 04/03/19 11:00 Proventil IH Q3HRT PRN Shortness Of Breath Ascorbic Acid 500 mg 03/23/19 08:00 04/05/19 09:01 Vitamin C PO 500 mg QDAY OSITO Administration Aspirin 81 mg 03/25/19 08:00 04/05/19 09:01 Halfprin Ec PO 81 mg QDAY OSITO Administration Atorvastatin Calcium 20 mg 03/24/19 21:00 04/05/19 22:38 Lipitor PO 20 mg QHS OSITO Administration Azithromycin 500 mg 04/03/19 19:00 04/05/19 09:01 Zithromax PO 500 mg QDAY OSITO Administration Bisacodyl 10 mg 03/22/19 15:11 Dulcolax RI QDAY PRN Constipation unrelieved by MOM Ergocalciferol 50,000 unit 04/06/19 10:00 Vitamin D2 PO 05/04/19 10:01 [facility] [place] Ferrous Sulfate 325 mg 03/23/19 08:00 04/05/19 09:01 Feosol PO 325 mg QDAY OSITO Administration Folic Acid 1 mg 03/24/19 08:00 04/05/19 09:01 Folvite PO 1 mg QDAY OSITO Administration Heparin Sodium (Porcine) 5,000 unit 03/22/19 22:00 04/06/19 05:33 Heparin SUB-Q 5,000 unit Q8HR OSITO Administration Hydralazine HCl 10 mg 03/22/19 15:20 Apresoline PO Q6H PRN Hypertension Melatonin 10 mg 03/31/19 21:00 Melatonin PO QHS PRN Sleep Ondansetron HCl 4 mg 03/22/19 15:20 Zofran Odt PO Q8H PRN Nausea And Vomiting Pantoprazole Sodium 40 mg 03/23/19 08:00 04/05/19 09:01 Protonix PO 40 mg QDAY OSITO Administration Polyethylene Glycol 17 gm 03/31/19 17:00 04/05/19 09:02 Miralax 3350 PO Not Given QDAY OSITO Senna 8.6 mg 03/22/19 15:11 Senokot PO Q12H PRN Laxative Effect Tamsulosin HCl 0.4 mg 03/25/19 22:00 04/05/19 22:38 Flomax PO 0.4 mg HS OSITO Administration Nutrition/Malnutrition Assess - Dietary Evaluation Nutrition/Malnutrition Findings: Nutrition Notes Start: 03/29/19 15:51 Freq: Status: Active Protocol: Document 03/29/19 15:51 RM (Rec: 03/29/19 15:52 RM [id number]) Nutrition Notes Need for Assessment generated from: LOS Initial or Follow up Brief Note Height 6 ft Weight 181.2 kg [place] Body Weight (kg) 80.90 BMI 54.1 Subjective/Other Information Screened for LOS. Recorded PO intake 88% X 2 days. Nutrition Intervention Revisit per MD consult or patient Sign Off request:
[2019-04-06] MEDS: VITAMIN C PO SCH (15:27)
[2019-04-06] MEDS: FEOSOL PO SCH (15:27)
[2019-04-06] MEDS: HALFPRIN EC PO SCH (15:27)
[2019-04-06] MEDS: FOLVITE PO SCH (15:28)
[2019-04-06] MEDS: PROTONIX PO SCH (15:29)
[2019-04-06] MEDS: VITAMIN D2 PO SCH (15:35)
[2019-04-06] MEDS: ZITHROMAX PO SCH (15:35)
[2019-04-06] MEDS: MIRALAX 3350 PO SCH (18:16)
[2019-04-06] MEDS: FLOMAX PO SCH (22:07)
[2019-04-07] MEDS: HEPARIN SUB-Q SCH ×3 (06:30→22:44)
--- NOTE | 2019-04-07 08:31 | Progress Note ---
Subjective Date of service: 04/07/19 Principal diagnosis: Difficulty walking, urine retention, poor balance Interval history: 39-year-old male with generalized weakness and dizziness plus right flank pain and diarrhea. Admitted to the hospital was found to be hypotensive and hyponatremic. Cardiology was consulted, Echocardiogram was obtained but do not have results. CTs of the abdomen and chest showed no acute abnormalities. CT stone protocol showed a possible 1 mm stone on the left kidney. Ultrasound of the gallbladder showed no acute abnormalities but did show fatty liver. Uncertain etiology for his weakness and loss of balance. 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 Patient and family deny any radiation or chemotherapy to the area. Also noted on exam that there is a slight right faci al droop that the mother also picked up on. No other focal signs. Do not have a MRI brain or CT head available from outside hospital. At this point I'm suspecting a neurologic issue and will need to investigate records and work up further. Head CT NEG for infarct but he continues to have loss of balance, weakness parasthesias and urinary retention - all sudden in onset. Clinically consistent lacunar infarct likely in pontine area or possibly transverse myelitis. Denies injury/pain to back / neck, no viral illness or other sickness prior to incident. Would still like MRI but unavailable due to patient size. Patient is participating in therapy and making reasonable progress. Taking rest breaks as needed. +BM. Denies pain, palpitations, N/V, or joint pain. Escalante intact, urology rec outpatient follow up in 1 month for neurogenic bladder, maintain Escalante. PO intake stable. BP is stable but on lower side at times, monitor. Will look into outpatient MRI that can accommodate his weight. All records, vitals, labs and medications were reviewed. No other issues per patient, nursing or therapy. Objective - Exam Narrative Exam: MUSCULOSKELETAL SPECIALTY EXAM CONSTITUTIONAL: Well developed, well nourished, obese, appropriately groomed EENT: Hearing intact to soft voice RESPIRATORY: Clear to auscultation bilaterally, no increased work of breathing. CARDIOVASCULAR: Regular Rate/ Rhythm, mild swelling in b/l feet, otherwise no edema or tenderness in BUE or BLE. All extremities warm. GI / : + bowel sounds, soft, NTTP, nondistended. Escalante with good output INTEGUMENTARY: Normal, no lesion, rash, masses or bruising noted in extremities except for old scar over left shoulder MUSCULOSKELETAL: BUE and BLE normal without defect, crepitus, subluxation, effusion, arthritic changes or TTP. BUE 5/5, good ROM, with normal tone. BLE 5/5 good ROM, with normal tone NEURO: CN 2-12 grossly intact except for slight right flattening of nasolabial fold. Sensation intact but altered with numbness in all extremities. No tremor noted in 4 extremities. POSTURE and GAIT: Sitting posture good. Balance and gait improving. Endurance improving PSYCH: Alert, oriented x3, affect appears normal. Insight appears intact. - Constitutional Vitals: Vital Signs - 12hr 04/06/19 04/07/19 21:33 04:18 Temperature 36.7 C 36.8 C Pulse Rate 82 102 H Respiratory 19 20 Rate Blood Pressure 107/53 92/63 O2 Sat by Pulse 93 93 Oximetry - Allied health notes Allied health notes reviewed: nursing, PT, OT FIMS assessment as documented by PT/OT/ST: Grooming Patient cleans teeth/dentures: Yes Patient reyes/brushes hair: Yes Patient washes, rinses and Yes dries face: Patient washes, rinses and Yes dries hands: Patient shaves: Yes Patient applies make-up: No Patient performs (no make-up/ /4 (100%) shaving): Grooming FIM Score 6. Modified [place] (Needs equipment/device . Extra time.) Toileting Toileting Device Urinal,Bedside Commode Patient able to: Adjust clothes before,Clean self,Adjust clothes after Patient able to perform: 3/3 (100%) Toileting FIM Score 6. Modified [place] (Needs equip. or prosth ./orth.) Social interaction/Memory/Problem solving Social Interaction FIM Score 7. Complete [place] (Interacts appropriately. Controls temper.) Memory FIM Score 6. Modified [place](Mild difficulty remembering people/routines.) Problem Solving FIM Score 5. Supervision (Needs cueing <10% to solve routine problems.) Transfers Mode of Locomotion: Wheelchair Bed/Chair/Wheelchair Transfers 6. Modified [place] (Uses device, sliding FIM Score board, prosth./orth.) Toilet Transfers FIM Score 6. Modified [place] (Uses device, special seat or more time.) Patient transferred to: Shower Tub Transfers FIM Score 0. Activity does not occur Shower Transfers FIM Score 6. Modified [place] (Needs slide board, grab bar, tub bench.) Locomotion- Stairs Device used on Stairs Handrail/s Number of Stairs Ascended/ 12 Descended Patient used handrail/support: Yes Stairs FIM Score 5. Supervision (12-14 stairs w/ supv. 4-6 stairs independently.) Locomotion- walk/wheelchair Most Frequent Mode of Wheelchair Locomotion: Ambulation Distance 295 Walking FIM Score 5. Supervision (Minimum 150 ft. supv./cues or 50 ft. independently.) Wheelchair Propulsion Distance 15 Wheelchair FIM Score 1. Total Assistance (Pt. < 25%, 2 or more person assist, or <50 ft.) Eating Eating FIM Score 7. Complete [place] (Cuts meat, opens containers, regular diet.) Dressing-Upper body Patient retrieves clothing No items: Patient applies/removes UE DNA prosthesis or orthosis: Upper Body Dressing FIM Score 5. Supv./Set-Up ([place] sets out clothes or applies pros./orth.) Dressing-lower body Patient retrieves clothing No items: Patient applies/removes LE DNA prosthesis or orthosis: Lower Body Dressing FIM Score 5. Supv./Set-Up ([place] sets out clothes or applies pros./orth.) - Labs CBC & Chem 7: 04/02/19 05:29 04/02/19 05:29 Labs: Laboratory Results - last 72 hr 04/04/19 04/05/19 04/05/19 22:32 08:03 21:28 POC Glucose 93 91 69 L 04/05/19 04/06/19 23:15 07:19 POC Glucose 108 H 91 Assessment and Plan Presumed CVA: Likely lacunar infarct. CT head NEG. MRI unavailable due to weight. Start secondary stroke prevention. If he is able to obtain MRI as outpatient and no CVA identified, would rec d/c ASA. May benefit from outpatient Neuro workup. Have considered SCI and other neuromuscular causes but constellation of symptoms (sudden onset of numbness in all 4 extremities with A1c 6, urinary retention of >1L multiple times without hx of frequent nocturia, balance deficit, difficulty standing/walking but preserved strength and no hx of injuries or recent illness/environmental exposure to toxins) and exam not consistent. Other possibility is transverse myelitis. Less likely conversion but a possibility. Urinary retention with incontinence due to neurogenic bladder: Escalante inserted, 1300mL out initially. Escalante removed Friday 8/9 AM, unable to urinate by 1999 (I asked for escalante to be replaced if no UOP in 6hrs), Escalante replaced with about 700 out. Cont Flomax. Urology requested follow up in 1 month. Maintain Escalante until then. M62.81 Muscle weakness: PT & OT will work on strengthening exercises to improve functional strength including mixture of closed and open kinetic chain exercises. R26.2 Difficulty walking: PT will work on gait training and proper use of assistive devices and advance as appropriate to use of stairs and outside ambu lation on uneven surfaces. Z73.6 ADL dysfunction: OT will work on improving ability to perform ADLs (including assistive devices) to increase independence and decrease caregiver burden and improve functional transfers and mobility training. R26.81 Unsteadiness on feet: PT will work on improving static and dynamic sitting and standing balance as well as proper use of assistive devices to decrease risk of falls. R26.89 Abnormality of gait: PT will work to improve safety and efficiency of gait through neuromotor training and gait training along with instruction on proper use of assistive devices. R53.81 Debility: PT & OT will work on improving overall functional status to improve participation with ADLs, mobility and social involvement. R53.83 Fatigue: PT & OT will work on improving endurance through aerobic exercises and therapeutic activity while monitoring patients tolerance for activity and vital signs as needed. Hypertension: normalized off of medication CKD 2:Avoid nephrotoxic medications, monitor, stable currently and in normal range Diabetes type 2: cont carb controlled diet, has been fairly controlled on diet. OSH A1c 6 Morbid obesity: modification of diet/lifestyle and exercise discussed Obstructive sleep apnea: CPAP, monitor Folate deficiency: replaced Vit B12 topped off, Vit D low at 16, Vit B6 pending. HLD: Statin started Thyroid panel - TSH wnl, T4 slightly elevated CXR 03/30 NEG Cardiac workup NEG. PE NEG. Placed on z lanie for bronchitis. DVT ppx: Heparin Pain: Continue physical modalities in therapy and pain medications as needed to achieve functional pain control. Sleep: Monitor and address as needed. Start melatonin Bowel: Monitor and address as needed. Appetite: Monitor and address as needed. Discharge planning: Pending therapy progress and care plan meeting. Will continue discussion with therapy team, SW, patient and family. 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
[2019-04-07] MEDS: ZITHROMAX PO SCH (08:54)
[2019-04-07] MEDS: FOLVITE PO SCH (10:12)
[2019-04-07] MEDS: VITAMIN C PO SCH (10:12)
[2019-04-07] MEDS: HALFPRIN EC PO SCH (10:12)
[2019-04-07] MEDS: PROTONIX PO SCH (10:12)
[2019-04-07] MEDS: FEOSOL PO SCH (10:12)
[2019-04-07] MEDS: MIRALAX 3350 PO SCH (10:14)
--- NOTE | 2019-04-07 18:12 | Progress Note ---
Assessment and Plan Assessment and plan: Generalized weakness/Physical debility - Cont PT per rehab protocol Acute bronchitis, placed on zithromax for 5 days Chest pain, atypical - possible GERD Vs musculoskeletal - ECG has no acute ST changes, CE normal - Echocardiogram done at [place] 03/22/2019 reported a normal LV systolic function, ejection fraction 71%. - Cardiology following, CTA chest normal - no PE Diabetes type 2, cont consistent carb diet and SSI Orthostatic hypotension, monitor closely, - off lisinopril - follow am cortisol level, may start low dose midodrine if cortisol level normal RAUDEL with OHS, cont on CPAP at bedtime - need significant wt reduction Morbidly obese - dietary recommendation and physical exercise as appropriate Continue current management History Interval history: Patient feels better, tolerating PT No new complaints Vital signs noted Hospitalist Physical - Constitutional Vitals: Temp Pulse Resp BP Pulse Ox 98.3 F 102 H 20 92/63 93 04/07/19 04:18 04/07/19 04:18 04/07/19 04:18 04/07/19 04:18 04/07/19 04:18 General appearance: Present: no acute distress, obese (morbidly obese) - EENT Eyes: Present: PERRL, EOM intact - Neck Neck: Present: supple, normal ROM - Respiratory Respiratory effort: normal Respiratory: bilateral: diminished, negative: rales, rhonchi, wheezing - Cardiovascular Rhythm: regular Heart Sounds: Present: S1 & S2 - Extremities Extremities: no ischemia, No edema - Abdominal General gastrointestinal: soft, non-tender, non-distended, normal bowel sounds - Integumentary Integumentary: Present: clear, warm - Psychiatric Psychiatric: appropriate mood/affect, cooperative - Neurologic Neurologic: CNII-XII intact, moves all extremities Results - Labs CBC & Chem 7: 04/02/19 05:29 04/02/19 05:29 Labs: Laboratory Last Values WBC 7.3 K/mm3 (4.5-11.0) 04/02/19 05:29 RBC 4.37 M/mm3 (3.65-5.03) 04/02/19 05:29 Hgb 13.0 gm/dl (11.8-15.2) 04/02/19 05:29 Hct 38.8 % (35.5-45.6) 04/02/19 05:29 MCV 89 fl (84-94) 04/02/19 05:29 MCH 30 pg (28-32) 04/02/19 05:29 MCHC 34 % (32-34) 04/02/19 05:29 RDW 15.2 % (13.2-15.2) 04/02/19 05:29 Plt Count 227 K/mm3 (140-440) 04/02/19 05:29 Lymph % (Auto) 10.2 % (13.4-35.0) L 03/23/19 04:25 [place] % (Auto) 9.3 % (0.0-7.3) H 03/23/19 04:25 Eos % (Auto) 3.7 % (0.0-4.3) 03/23/19 04:25 Baso % (Auto) 0.9 % (0.0-1.8) 03/23/19 04:25 Lymph # 0.9 K/mm3 (1.2-5.4) L 03/23/19 04:25 [place] # 0.8 K/mm3 (0.0-0.8) 03/23/19 04:25 Eos # 0.3 K/mm3 (0.0-0.4) 03/23/19 04:25 Baso # 0.1 K/mm3 (0.0-0.1) 03/23/19 04:25 Seg Neutrophils % 75.9 % (40.0-70.0) H 03/23/19 04:25 Seg Neutrophils # 6.4 K/mm3 (1.8-7.7) 03/23/19 04:25 293.16 ng/mlDDU (0-234) H 04/02/19 15:14 Sodium 139 mmol/L (137-145) 04/02/19 05:29 Potassium 4.1 mmol/L (3.6-5.0) 04/02/19 05:29 Chloride 99.2 mmol/L (98-107) 04/02/19 05:29 Carbon Dioxide 26 mmol/L (22-30) 04/02/19 05:29 18 mmol/L 04/02/19 05:29 BUN 11 mg/dL (9-20) 04/02/19 05:29 1.5 mg/dL (0.8-1.5) 04/02/19 05:29 Estimated GFR 52 ml/min 04/02/19 05:29 7 % 04/02/19 05:29 Glucose 92 mg/dL (75-100) 04/02/19 05:29 POC Glucose 91 (70-105) 04/06/19 07:19 Calcium 9.2 mg/dL (8.4-10.2) 04/02/19 05:29 Magnesium 2.00 mg/dL (1.7-2.3) 04/02/19 05:29 0.40 mg/dL (0.1-1.2) 03/23/19 04:25 AST 39 units/L (5-40) 03/23/19 04:25 ALT 44 units/L (7-56) 03/23/19 04:25 73 units/L (35-129) 03/23/19 04:25 143 units/L (55-170) 04/02/19 13:54 CK-MB (CK-2) 1.4 ng/mL (0.0-4.0) 04/02/19 13:54 CK-MB (CK-2) Rel Index 0.9 (0-4) 04/02/19 13:54 < 0.010 ng/mL (0.00-0.029) 04/02/19 13:54 NT-Pro-B Natriuret Pep 24.94 pg/mL (0-450) 04/02/19 15:14 7.0 g/dL (6.3-8.2) 03/23/19 04:25 3.7 g/dL (3.9-5) L 03/23/19 04:25 1.1 % 03/23/19 04:25 Triglycerides 108 mg/dL (2-149) 03/25/19 07:09 Cholesterol 148 mg/dL (50-199) 03/25/19 07:09 107 mg/dL (50-130) 03/25/19 07:09 37 mg/dL (40-59) L 03/25/19 07:09 4.00 % 03/25/19 07:09 Vitamin B12 370.3 pg/mL (211-911) 03/23/19 17:06 25-OH Vitamin D Total See scanned results 03/23/19 17:06 <4 ng/mL 03/23/19 17:06 16 ng/mL 03/23/19 17:06 4.14 ng/mL (7.3-26.0) L 03/23/19 17:06 TSH 2.620 mlU/mL (0.270-4.200) 03/30/19 07:24 Free T4 1.56 ng/dL (0.76-1.46) H 03/30/19 07:24 Active Medications - Current Medications Current Medications: Generic Name Dose Route Start Last Admin Trade Name Freq PRN Reason Stop Dose Admin Acetaminophen 650 mg 03/22/19 15:11 Tylenol PO Q4H PRN Pain MILD(1-3)/Fever >100.5/HAGER Albuterol 2.5 mg 04/03/19 11:00 Proventil IH Q3HRT PRN Shortness Of Breath Ascorbic Acid 500 mg 03/23/19 08:00 04/07/19 10:12 Vitamin C PO 500 mg QDAY OSITO Administration Aspirin 81 mg 03/25/19 08:00 04/07/19 10:12 Halfprin Ec PO 81 mg QDAY OSITO Administration Atorvastatin Calcium 20 mg 03/24/19 21:00 04/06/19 22:07 Lipitor PO 20 mg QHS OSITO Administration Azithromycin 500 mg 04/03/19 19:00 04/07/19 08:54 Zithromax PO 04/08/19 18:59 500 mg QDAY OSITO Administration Bisacodyl 10 mg 03/22/19 15:11 04/06/19 15:34 Dulcolax MI 10 mg QDAY PRN Administration Constipation unrelieved by MOM Ergocalciferol 50,000 unit 04/06/19 10:00 04/06/19 15:35 Vitamin D2 PO 05/04/19 10:01 50,000 unit Tu OSITO Administration Ferrous Sulfate 325 mg 03/23/19 08:00 04/07/19 10:12 Feosol PO 325 mg QDAY OSITO Administration Folic Acid 1 mg 03/24/19 08:00 04/07/19 10:12 Folvite PO 1 mg QDAY OSITO Administration Heparin Sodium (Porcine) 5,000 unit 03/22/19 22:00 04/07/19 06:30 Heparin SUB-Q 5,000 unit Q8HR OSITO Administration Hydralazine HCl 10 mg 03/22/19 15:20 Apresoline PO Q6H PRN Hypertension Melatonin 10 mg 03/31/19 21:00 Melatonin PO QHS PRN Sleep Ondansetron HCl 4 mg 03/22/19 15:20 Zofran Odt PO Q8H PRN Nausea And Vomiting Pantoprazole Sodium 40 mg 03/23/19 08:00 04/07/19 10:12 Protonix PO 40 mg QDAY OSITO Administration Polyethylene Glycol 17 gm 03/31/19 17:00 04/07/19 10:14 Miralax 3350 PO Not Given QDAY OSITO Senna 8.6 mg 03/22/19 15:11 Senokot PO Q12H PRN Laxative Effect Tamsulosin HCl 0.4 mg 03/25/19 22:00 04/06/19 22:07 Flomax PO 0.4 mg HS OSITO Administration Nutrition/Malnutrition Assess - Dietary Evaluation Nutrition/Malnutrition Findings: Nutrition Notes Start: 03/29/19 15:51 Freq: Status: Active Protocol: Document 03/29/19 15:51 RM (Rec: 03/29/19 15:52 RM [id number]) Nutrition Notes Need for Assessment generated from: LOS Initial or Follow up Brief Note Height 6 ft Weight 181.2 kg [place] Body Weight (kg) 80.90 BMI 54.1 Subjective/Other Information Screened for LOS. Recorded PO intake 88% X 2 days. Nutrition Intervention Revisit per MD consult or patient Sign Off request:
[2019-04-07] MEDS: FLOMAX PO SCH (22:44)
[2019-04-08] MEDS: HEPARIN SUB-Q SCH ×3 (05:39→21:41)
[2019-04-08] MEDS: ZITHROMAX PO SCH (08:36)
[2019-04-08] MEDS: FOLVITE PO SCH (08:36)
[2019-04-08] MEDS: VITAMIN C PO SCH (08:36)
[2019-04-08] MEDS: FEOSOL PO SCH (08:36)
[2019-04-08] MEDS: HALFPRIN EC PO SCH (08:36)
[2019-04-08] MEDS: PROTONIX PO SCH (08:36)
[2019-04-08] MEDS: MIRALAX 3350 PO SCH (08:39)
--- NOTE | 2019-04-08 09:44 | Progress Note ---
Subjective Date of service: 04/08/19 Principal diagnosis: Difficulty walking, urine retention, poor balance Interval history: 39-year-old male with generalized weakness and dizziness plus right flank pain and diarrhea. Admitted to the hospital was found to be hypotensive and hyponatremic. Cardiology was consulted, Echocardiogram was obtained but do not have results. CTs of the abdomen and chest showed no acute abnormalities. CT stone protocol showed a possible 1 mm stone on the left kidney. Ultrasound of the gallbladder showed no acute abnormalities but did show fatty liver. Uncertain etiology for his weakness and loss of balance. 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 Patient and family deny any radiation or chemotherapy to the area. Also noted on exam that there is a slight right faci al droop that the mother also picked up on. No other focal signs. Do not have a MRI brain or CT head available from outside hospital. At this point I'm suspecting a neurologic issue and will need to investigate records and work up further. Head CT NEG for infarct but he continues to have loss of balance, weakness parasthesias and urinary retention - all sudden in onset. Clinically consistent lacunar infarct likely in pontine area or possibly transverse myelitis. Denies injury/pain to back / neck, no viral illness or other sickness prior to incident. Would still like MRI but unavailable due to patient size. Patient is participating in therapy and making reasonable progress. Taking rest breaks as needed. +BM. Patient noted to have episode of apparent dysphagia today while eating sandwhich. Both he and mentioned this earlier but stated it was a gag due to taste/smell at OSH and here that would come and go. Witnessed episode looked more c/w airway protection response and the simple sandwhich should not have elicited a gag response based on smell or taste. Asked CLEAN ENERGY POLICY ANALYST to perform MBS to assess swallow. Discussed with patient and . Denies pain, palpitations, N/V, or joint pain. Escalante intact, urology rec outpatient follow up in 1 month for neurogenic bladder, maintain Escalante. BP is stable but on lower side at times, monitor. Will look into outpatient MRI that can accommodate his weight. All records, vitals, labs and medications were reviewed. No other issues per patient, nursing or therapy. Objective - Exam Narrative Exam: MUSCULOSKELETAL SPECIALTY EXAM CONSTITUTIONAL: Well developed, well nourished, obese, appropriately groomed EENT: Hearing intact to soft voice RESPIRATORY: Clear to auscultation bilaterally, no increased work of breathing. CARDIOVASCULAR: Regular Rate/ Rhythm, mild swelling in b/l feet, otherwise no edema or tenderness in BUE or BLE. All extremities warm. GI / : + bowel sounds, soft, NTTP, nondistended. Escalante with good output INTEGUMENTARY: Normal, no lesion, rash, masses or bruising noted in extremities except for old scar over left shoulder MUSCULOSKELETAL: BUE and BLE normal without defect, crepitus, subluxation, effusion, arthritic changes or TTP. BUE 5/5, good ROM, with normal tone. BLE 5/5 good ROM, with normal tone NEURO: CN 2-12 grossly intact except for slight right flattening of nasolabial fold. Sensation intact but altered with numbness in all extremities. No tremor noted in 4 extremities. Apparent abnormal swallow or gag witnessed during exam. POSTURE and GAIT: Sitting posture good. Balance and gait improving. Endurance improving PSYCH: Alert, oriented x3, affect appears normal. Insight appears intact. - Constitutional Vitals: Vital Signs - 12hr 04/08/19 04/08/19 04/08/19 05:30 05:31 08:34 Temperature 36.7 C 36.4 C Pulse Rate 84 89 88 Respiratory 18 18 Rate Blood Pressure 96/48 108/70 O2 Sat by Pulse 93 93 97 Oximetry - Allied health notes Allied health notes reviewed: nursing, PT, ST, OT FIMS assessment as documented by PT/OT/ST: Grooming Patient cleans teeth/dentures: Yes Patient reyes/brushes hair: Yes Patient washes, rinses and Yes dries face: Patient washes, rinses and Yes dries hands: Patient shaves: Yes Patient applies make-up: No Patient performs (no make-up/ 4/4 (100%) shaving): Grooming FIM Score 6. Modified [place] (Needs equipment/device . Extra time.) Toileting Toileting Device Urinal,Bedside Commode Patient able to: Adjust clothes before,Clean self,Adjust clothes after Patient able to perform: 3/3 (100%) Toileting FIM Score 6. Modified [place] (Needs equip. or prosth ./orth.) Social interaction/Memory/Problem solving Social Interaction FIM Score 6. Mod. [place] (Mostly appropriate. May need meds. No supv.) Memory FIM Score 6. Modified [place](Mild difficulty remembering people/routines.) Problem Solving FIM Score 6. Mod. [place] (Mild difficulty or needs more time w/ complex.) Transfers Mode of Locomotion: Wheelchair Bed/Chair/Wheelchair Transfers 5. Supervision (Needs supv. or set-up for FIM Score sliding board, foot rests.) Toilet Transfers FIM Score 6. Modified [place] (Uses device, special seat or more time.) Patient transferred to: Shower Tub Transfers FIM Score 0. Activity does not occur Shower Transfers FIM Score 6. Modified [place] (Needs slide board, grab bar, tub bench.) Locomotion- Stairs Device used on Stairs Handrail/s Number of Stairs Ascended/ 12 Descended Patient used handrail/support: Yes Stairs FIM Score 5. Supervision (12-14 stairs w/ supv. 4-6 stairs independently.) Locomotion- walk/wheelchair Most Frequent Mode of Wheelchair Locomotion: Ambulation Distance 75 Walking FIM Score 4. Minimal Assistance (Patient = 75% or more. Minimum of 150 ft.) Wheelchair Propulsion Distance 15 Wheelchair FIM Score 1. Total Assistance (Pt. < 25%, 2 or more person assist, or <50 ft.) Eating Eating FIM Score 7. Complete [place] (Cuts meat, opens containers, regular diet.) Dressing-Upper body Patient retrieves clothing No items: Patient applies/removes UE DNA prosthesis or orthosis: Upper Body Dressing FIM Score 5. Supv./Set-Up ([place] sets out clothes or applies pros./orth.) Dressing-lower body Patient retrieves clothing No items: Patient applies/removes LE DNA prosthesis or orthosis: Lower Body Dressing FIM Score 5. Supv./Set-Up ([place] sets out clothes or applies pros./orth.) - Labs CBC & Chem 7: 04/02/19 05:29 04/02/19 05:29 Labs: Laboratory Results - last 72 hr 04/04/19 04/05/19 04/05/19 06:15 21:28 23:15 POC Glucose 69 L 108 H Total Cortisol 16.3 04/06/19 04/08/19 07:19 00:04 POC Glucose 91 81 Total Cortisol Assessment and Plan Presumed CVA: Likely lacunar infarct. CT head NEG. MRI unavailable due to weight. Start secondary stroke prevention. If he is able to obtain MRI as outpatient and no CVA identified, would rec d/c ASA. May benefit from outpatient Neuro workup. Have considered SCI and other neuromuscular causes but constellation of symptoms (sudden onset of numbness in all 4 extremities with A1c 6, urinary retention of >1L multiple times without hx of frequent nocturia, balance deficit, difficulty standing/walking but preserved strength and no hx of injuries or recent illness/environmental exposure to toxins) and exam not consistent. Other possibility is transverse myelitis. Less likely conversion but a possibility. Urinary retention with incontinence due to neurogenic bladder: Escalante inserted, 1300mL out initially. Escalante removed Friday 8/ AM, unable to urinate by 1999 (I asked for escalante to be replaced if no UOP in 6hrs), Escalante replaced with about 700 out. Cont Flomax. Urology requested follow up in 1 month. Maintain Escalante until then. Discussed MBS with CLEAN ENERGY POLICY ANALYST - completely normal. The gagging and hot/cold episodes are odd and I am not sure how they fit into the total picture. M62.81 Muscle weakness: PT & OT will work on strengthening exercises to improve functional strength including mixture of closed and open kinetic chain exercises. R26.2 Difficulty walking: PT will work on gait training and proper use of assistive devices and advance as appropriate to use of stairs and outside ambulation on uneven surfaces. Z73.6 ADL dysfunction: OT will work on improving ability to perform ADLs (including assistive devices) to increase independence and decrease caregiver burden and improve functional transfers and mobility training. R26.81 Unsteadiness on feet: PT will work on improving static and dynamic s itting and standing balance as well as proper use of assistive devices to decrease risk of falls. R26.89 Abnormality of gait: PT will work to improve safety and efficiency of gait through neuromotor training and gait training along with instruction on proper use of assistive devices. R53.81 Debility: PT & OT will work on improving overall functional status to improve participation with ADLs, mobility and social involvement. R53.83 Fatigue: PT & OT will work on improving endurance through aerobic exercises and therapeutic activity while monitoring patients tolerance for activity and vital signs as needed. Hypertension: normalized off of medication CKD 2:Avoid nephrotoxic medications, monitor, stable currently and in normal range Diabetes type 2: cont carb controlled diet, has been fairly controlled on diet. OSH A1c 6 Morbid obesity: modification of diet/lifestyle and exercise discussed Obstructive sleep apnea: CPAP, monitor Folate deficiency: replaced Vit B12 topped off, Vit D low at 16, Vit B6 pending. HLD: Statin started Thyroid panel - TSH wnl, T4 slightly elevated CXR 03/30 NEG Cardiac workup NEG. PE NEG. Placed on z lanie for bronchitis. DVT ppx: Heparin Pain: Continue physical modalities in therapy and pain medications as needed to achieve functional pain control. Sleep: Monitor and address as needed. Start melatonin Bowel: Monitor and address as needed. Appetite: Monitor and address as needed. Discharge planning: Pending therapy progress and care plan meeting. Will continue discussion with therapy team, SW, patient and family. 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
--- NOTE | 2019-04-08 15:07 | Fluoroscopy Report ---
MODIFIED BARIUM SWALLOW INDICATION: dysphagia TECHNIQUE: Swallowing was evaluated in the lateral position under direct fluoroscopy. FINDINGS: The patient was evaluated with thin liquids, puree, semisolids and solid consistencies.. No penetration or aspiration was witnessed. Please correlate with the formal report by speech therapy . IMPRESSION: Unremarkable exam. Fluoroscopic time: 1.02 minutes Number of fluoroscopic images: 1 Signer Name: Ender Houston Jr, MD Signed: 04/08/2019 3:03 PM Workstation Name: [id number]
--- NOTE | 2019-04-08 19:52 | Progress Note ---
Assessment and Plan Assessment and plan: --Diabetes type 2, cont consistent carb diet and SSI --Orthostatic hypotension, slightly improved When necessary hydralazine --RAUDEL with [facility], cont on CPAP at bedtime Need to follow with pulmonology upon discharge --Generalized weakness/Physical debility Cont PT per rehab protocol --Acute bronchitis, s/p zithromax Significantly improved --Chest pain, atypical; noncardiac, resolved possible GERD Vs musculoskeletal ECG has no acute ST changes, CE normal Echocardiogram done at [place] 03/22/2019 normal LV systolic function, ejection fraction 71%. CTA chest normal - no PE, cardiology evaluated conservative management --Morbidly obese dietary modifications and exercise as tolerated and weight reduction when medically stable. Continue current management Plan of care is reviewed with the patient and family member at the bedside History Interval history: Patient seen and examined this morning medical records reviewed Patient feels better no new complaints Tolerating physical therapy Vital signs noted Hospitalist Physical - Constitutional Vitals: Temp Pulse Resp BP Pulse Ox 97.6 F 88 18 108/70 97 04/08/19 08:34 04/08/19 08:34 04/08/19 08:34 04/08/19 08:34 04/08/19 08:34 General appearance: Present: no acute distress, obese (morbidly obese) - EENT Eyes: Present: PERRL, EOM intact - Neck Neck: Present: supple, normal ROM - Respiratory Respiratory effort: normal Respiratory: bilateral: diminished, negative: rales, rhonchi, wheezing - Cardiovascular Rhythm: regular Heart Sounds: Present: S1 & S2 - Extremities Extremities: no ischemia, No edema - Abdominal General gastrointestinal: soft, non-tender, non-distended, normal bowel sounds - Integumentary Integumentary: Present: clear, warm - Psychiatric Psychiatric: appropriate mood/affect, cooperative - Neurologic Neurologic: CNII-XII intact, moves all extremities Results - Labs CBC & Chem 7: 04/02/19 05:29 04/02/19 05:29 Labs: Laboratory Last Values WBC 7.3 K/mm3 (4.5-11.0) 04/02/19 05:29 RBC 4.37 M/mm3 (3.65-5.03) 04/02/19 05:29 Hgb 13.0 gm/dl (11.8-15.2) 04/02/19 05:29 Hct 38.8 % (35.5-45.6) 04/02/19 05:29 MCV 89 fl (84-94) 04/02/19 05:29 MCH 30 pg (28-32) 04/02/19 05:29 MCHC 34 % (32-34) 04/02/19 05:29 RDW 15.2 % (13.2-15.2) 04/02/19 05:29 Plt Count 227 K/mm3 (140-440) 04/02/19 05:29 Lymph % (Auto) 10.2 % (13.4-35.0) L 03/23/19 04:25 [place] % (Auto) 9.3 % (0.0-7.3) H 03/23/19 04:25 Eos % (Auto) 3.7 % (0.0-4.3) 03/23/19 04:25 Baso % (Auto) 0.9 % (0.0-1.8) 03/23/19 04:25 Lymph # 0.9 K/mm3 (1.2-5.4) L 03/23/19 04:25 [place] # 0.8 K/mm3 (0.0-0.8) 03/23/19 04:25 Eos # 0.3 K/mm3 (0.0-0.4) 03/23/19 04:25 Baso # 0.1 K/mm3 (0.0-0.1) 03/23/19 04:25 Seg Neutrophils % 75.9 % (40.0-70.0) H 03/23/19 04:25 Seg Neutrophils # 6.4 K/mm3 (1.8-7.7) 03/23/19 04:25 293.16 ng/mlDDU (0-234) H 04/02/19 15:14 Sodium 139 mmol/L (137-145) 04/02/19 05:29 Potassium 4.1 mmol/L (3.6-5.0) 04/02/19 05:29 Chloride 99.2 mmol/L (98-107) 04/02/19 05:29 Carbon Dioxide 26 mmol/L (22-30) 04/02/19 05:29 18 mmol/L 04/02/19 05:29 BUN 11 mg/dL (9-20) 04/02/19 05:29 1.5 mg/dL (0.8-1.5) 04/02/19 05:29 Estimated GFR 52 ml/min 04/02/19 05:29 7 % 04/02/19 05:29 Glucose 92 mg/dL (75-100) 04/02/19 05:29 POC Glucose 81 (70-105) 04/08/19 00:04 Calcium 9.2 mg/dL (8.4-10.2) 04/02/19 05:29 Magnesium 2.00 mg/dL (1.7-2.3) 04/02/19 05:29 0.40 mg/dL (0.1-1.2) 03/23/19 04:25 AST 39 units/L (5-40) 03/23/19 04:25 ALT 44 units/L (7-56) 03/23/19 04:25 73 units/L (35-129) 03/23/19 04:25 143 units/L (55-170) 04/02/19 13:54 CK-MB (CK-2) 1.4 ng/mL (0.0-4.0) 04/02/19 13:54 CK-MB (CK-2) Rel Index 0.9 (0-4) 04/02/19 13:54 < 0.010 ng/mL (0.00-0.029) 04/02/19 13:54 NT-Pro-B Natriuret Pep 24.94 pg/mL (0-450) 04/02/19 15:14 7.0 g/dL (6.3-8.2) 03/23/19 04:25 3.7 g/dL (3.9-5) L 03/23/19 04:25 1.1 % 03/23/19 04:25 Triglycerides 108 mg/dL (2-149) 03/25/19 07:09 Cholesterol 148 mg/dL (50-199) 03/25/19 07:09 107 mg/dL (50-130) 03/25/19 07:09 37 mg/dL (40-59) L 03/25/19 07:09 4.00 % 03/25/19 07:09 Vitamin B12 370.3 pg/mL (211-911) 03/23/19 17:06 25-OH Vitamin D Total See scanned results 03/23/19 17:06 <4 ng/mL 03/23/19 17:06 16 ng/mL 03/23/19 17:06 4.14 ng/mL (7.3-26.0) L 03/23/19 17:06 TSH 2.620 mlU/mL (0.270-4.200) 03/30/19 07:24 Free T4 1.56 ng/dL (0.76-1.46) H 03/30/19 07:24 16.3 mcg/dL () 04/04/19 06:15 Active Medications - Current Medications Current Medications: Generic Name Dose Route Start Last Admin Trade Name Freq PRN Reason Stop Dose Admin Acetaminophen 650 mg 03/22/19 15:11 Tylenol PO Q4H PRN Pain MILD(1-3)/Fever >100.5/HAGER Albuterol 2.5 mg 04/03/19 11:00 Proventil IH Q3HRT PRN Shortness Of Breath Ascorbic Acid 500 mg 03/23/19 08:00 04/08/19 08:36 Vitamin C PO 500 mg QDAY OSITO Administration Aspirin 81 mg 03/25/19 08:00 04/08/19 08:36 Halfprin Ec PO 81 mg QDAY OSITO Administration Atorvastatin Calcium 20 mg 03/24/19 21:00 04/07/19 22:44 Lipitor PO 20 mg QHS OSITO Administration Bisacodyl 10 mg 03/22/19 15:11 04/06/19 15:34 Dulcolax MA 10 mg QDAY PRN Administration Constipation unrelieved by MOM Ergocalciferol 50,000 unit 04/06/19 10:00 04/06/19 15:35 Vitamin D2 PO 05/04/19 10:01 50,000 unit Tu OSITO Administration Ferrous Sulfate 325 mg 03/23/19 08:00 04/08/19 08:36 Feosol PO 325 mg QDAY OSITO Administration Folic Acid 1 mg 03/24/19 08:00 04/08/19 08:36 Folvite PO 1 mg QDAY OSITO Administration Heparin Sodium (Porcine) 5,000 unit 03/22/19 22:00 04/08/19 05:39 Heparin SUB-Q 5,000 unit Q8HR OSITO Administration Hydralazine HCl 10 mg 03/22/19 15:20 Apresoline PO Q6H PRN Hypertension Melatonin 10 mg 03/31/19 21:00 Melatonin PO QHS PRN Sleep Ondansetron HCl 4 mg 03/22/19 15:20 Zofran Odt PO Q8H PRN Nausea And Vomiting Pantoprazole Sodium 40 mg 03/23/19 08:00 04/08/19 08:36 Protonix PO 40 mg QDAY OSITO Administration Polyethylene Glycol 17 gm 03/31/19 17:00 04/08/19 08:39 Miralax 3350 PO Not Given QDAY OSITO Senna 8.6 mg 03/22/19 15:11 Senokot PO Q12H PRN Laxative Effect Tamsulosin HCl 0.4 mg 03/25/19 22:00 04/07/19 22:44 Flomax PO 0.4 mg HS OSITO Administration Nutrition/Malnutrition Assess - Dietary Evaluation Nutrition/Malnutrition Findings: Nutrition Notes Start: 03/29/19 15 :51 Freq: Status: Active Protocol: Document 03/29/19 15:51 RM (Rec: 03/29/19 15:52 RM [id number]) Nutrition Notes Need for Assessment generated from: LOS Initial or Follow up Brief Note Height 6 ft Weight 181.2 kg [place] Body Weight (kg) 80.90 BMI 54.1 Subjective/Other Information Screened for LOS. Recorded PO intake 88% X 2 days. Nutrition Intervention Revisit per MD consult or patient Sign Off request:
[2019-04-08] MEDS: FLOMAX PO SCH (21:41)
[2019-04-09] MEDS: HEPARIN SUB-Q SCH ×3 (05:48→21:25)
[2019-04-09 06:58] LABS: Hemoglobin 12.9 gm/dl (11.8-15.2); Mean Corpuscular HGB Conc 34 % (32-34); Mean Corpuscular Volume 89 fl (84-94); Platelet Count 312 K/mm3 (140-440); Red Blood Count 4.29 M/mm3 (3.65-5.03); Red Cell Distribution Width 14.7 % (13.2-15.2)
[2019-04-09 07:13] LABS: BUN/Creatinine Ratio 9; Blood Urea Nitrogen 12 mg/dL (9-20); Calcium 9.7 mg/dL (8.4-10.2); Hemolysis Index 5
--- NOTE | 2019-04-09 07:28 | Progress Note ---
Subjective Date of service: 04/09/19 Principal diagnosis: Difficulty walking, urine retention, poor balance Interval history: 39-year-old male with generalized weakness and dizziness plus right flank pain and diarrhea. Admitted to the hospital was found to be hypotensive and hyponatremic. Cardiology was consulted, Echocardiogram was obtained but do not have results. CTs of the abdomen and chest showed no acute abnormalities. CT stone protocol showed a possible 1 mm stone on the left kidney. Ultrasound of the gallbladder showed no acute abnormalities but did show fatty liver. Uncertain etiology for his weakness and loss of balance. 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 Patient and family deny any radiation or chemotherapy to the area. Also noted on exam that there is a slight right faci al droop that the mother also picked up on. No other focal signs. Do not have a MRI brain or CT head available from outside hospital. At this point I'm suspecting a neurologic issue and will need to investigate records and work up further. Head CT NEG for infarct but he continues to have loss of balance, weakness parasthesias and urinary retention - all sudden in onset. Clinically consistent lacunar infarct likely in pontine area or possibly transverse myelitis. Denies injury/pain to back / neck, no viral illness or other sickness prior to incident. Would still like MRI but unavailable due to patient size. Patient is participating in therapy and making reasonable progress. Taking rest breaks as needed. +BM. MBS showed no deficit whatsoever. No idea what is causing the gag/choking incidents. Pt interacting on phone during exam today. Now being told patient is 354lbs. D/c Friday. Denies pain, palpitations, N/V, or joint pain. Escalante intact, urology rec outpatient follow up in 1 month for neurogenic bladder, maintain Escalante. BP is stable but on lower side at times, monitor. Will look into outpatient MRI that can accommodate his weight. All records, vitals, labs and medications were reviewed. No other issues per patient, nursing or therapy. Objective - Exam Narrative Exam: MUSCULOSKELETAL SPECIALTY EXAM CONSTITUTIONAL: Well developed, well nourished, obese, appropriately groomed EENT: Hearing intact to soft voice RESPIRATORY: Clear to auscultation bilaterally, no increased work of breathing. CARDIOVASCULAR: Regular Rate/ Rhythm, mild swelling in b/l feet, otherwise no edema or te nderness in BUE or BLE. All extremities warm. GI / : + bowel sounds, soft, NTTP, nondistended. Escalante with good output INTEGUMENTARY: Normal, no lesion, rash, masses or bruising noted in extremities except for old scar over left shoulder MUSCULOSKELETAL: BUE and BLE normal without defect, crepitus, subluxation, effusion, arthritic changes or TTP. BUE 5/5, good ROM, with normal tone. BLE 5/5 good ROM, with normal tone NEURO: CN 2-12 grossly intact except for slight right flattening of nasolabial fold. Sensation intact but altered with numbness in all extremities. No tremor noted in 4 extremities. POSTURE and GAIT: Sitting posture good. Balance and gait improving. Endurance improving PSYCH: Alert, oriented x3, affect appears normal. Insight appears intact. - Constitutional Vitals: Vital Signs - 12hr 04/08/19 04/08/19 04/08/19 21:31 21:55 22:03 Temperature 36.9 C 37.0 C Pulse Rate 86 86 87 Respiratory 17 22 Rate Blood Pressure 185/102 102/57 [Right] O2 Sat by Pulse 94 98 94 Oximetry 04/09/19 04/09/19 04:47 04:50 Temperature 36.7 C Pulse Rate 77 77 Respiratory 17 Rate Blood Pressure 120/71 [Right] O2 Sat by Pulse 92 94 Oximetry - Allied health notes Allied health notes reviewed: nursing, PT, ST, OT FIMS assessment as documented by PT/OT/ST: Grooming Patient cleans teeth/dentures: Yes Patient reyes/brushes hair: Yes Patient washes, rinses and Yes dries face: Patient washes, rinses and Yes dries hands: Patient shaves: Yes Patient applies make-up: No Patient performs (no make-up/ 4/4 (100%) shaving): Grooming FIM Score 6. Modified [place] (Needs equipment/device . Extra time.) Toileting Toileting Device Urinal,Bedside Commode Patient able to: Adjust clothes before,Clean self,Adjust clothes after Patient able to perform: 3/3 (100%) Toileting FIM Score 6. Modified [place] (Needs equip. or prosth ./orth.) Social interaction/Memory/Problem solving Social Interaction FIM Score 6. Mod. [place] (Mostly appropriate. May need meds. No supv.) Memory FIM Score 6. Modified [place](Mild difficulty remembering people/routines.) Problem Solving FIM Score 6. Mod. [place] (Mild difficulty or needs more time w/ complex.) Transfers Mode of Locomotion: Wheelchair Bed/Chair/Wheelchair Transfers 7. Complete [place] (Walking: Stands. W/C: FIM Score Locks brakes, pivots.) Toilet Transfers FIM Score 6. Modified [place] (Uses device, special seat or more time.) Patient transferred to: Shower Tub Transfers FIM Score 0. Activity does not occur Shower Transfers FIM Score 6. Modified [place] (Needs slide board, grab bar, tub bench.) Locomotion- Stairs Device used on Stairs Handrail/s Number of Stairs Ascended/ 12 Descended Patient used handrail/support: Yes Stairs FIM Score 5. Supervision (12-14 stairs w/ supv. 4-6 stairs independently.) Locomotion- walk/wheelchair Most Frequent Mode of Wheelchair Locomotion: Ambulation Distance 150 Walking FIM Score 4. Minimal Assistance (Patient = 75% or more. Minimum of 150 ft.) Wheelchair Propulsion Distance 15 Wheelchair FIM Score 1. Total Assistance (Pt. < 25%, 2 or more person assist, or <50 ft.) Eating Eating FIM Score 7. Complete [place] (Cuts meat, opens containers, regular diet.) Dressing-Upper body Patient retrieves clothing No items: Patient applies/removes UE DNA prosthesis or orthosis: Upper Body Dressing FIM Score 5. Supv./Set-Up ([place] sets out clothes or applies pros./orth.) Dressing-lower body Patient retrieves clothing No items: Patient applies/removes LE DNA prosthesis or orthosis: Lower Body Dressing FIM Score 5. Supv./Set-Up ([place] sets out clothes or applies pros./orth.) - Labs CBC & Chem 7: 04/09/19 06:27 04/09/19 06:27 Labs: Laboratory Results - last 72 hr 04/04/19 04/06/19 04/08/19 06:15 07:19 00:04 WBC RBC Hgb Hct MCV MCH MCHC RDW Plt Count Sodium Potassium Chloride Carbon Dioxide Anion Gap BUN Creatinine Estimated GFR BUN/Creatinine Ratio Glucose POC Glucose 91 81 Calcium Total Cortisol 16.3 08/16/19 08/16/19 06:27 06:27 WBC 7.4 RBC 4.29 Hgb 12.9 Hct 38.0 MCV 89 MCH 30 MCHC 34 RDW 14.7 Plt Count 312 Sodium 139 Potassium 4.6 Chloride 101.4 Carbon Dioxide 27 Anion Gap 15 BUN 12 Creatinine 1.3 Estimated GFR > 60 BUN/Creatinine Ratio 9 Glucose 100 POC Glucose Calcium 9.7 Total Cortisol Assessment and Plan Presumed CVA: Likely lacunar infarct. CT head NEG. MRI unavailable due to weight. Start secondary stroke prevention. If he is able to obtain MRI as outpatient and no CVA identified, would rec d/c ASA. May benefit from outpatient Neuro workup. Have considered SCI and other neuromuscular causes but constellation of symptoms (sudden onset of numbness in all 4 extremities with A1c 6, urinary retention of >1L multiple times without hx of frequent nocturia, balance deficit, difficulty standing/walking but preserved strength and no hx of injuries or recent illness/environmental exposure to toxins) and exam not consistent. Other possibility is transverse myelitis. Less likely conversion but a possibility. Urinary retention with incontinence due to neurogenic bladder: Escalante inserted, 1300mL out initially. Escalante removed Friday 8/9 AM, unable to urinate by 1999 (I asked for escalante to be replaced if no UOP in 6hrs), Escalante replaced with about 700 out. Cont Flomax. Urology requested follow up in 1 month. Maintain Escalante until then. Discussed MBS with SENIOR DESIGNER - completely normal. The gagging and hot/cold episodes are odd and I am not sure how they fit into the total picture. M62.81 Muscle weakness: PT & OT will work on strengthening exercises to improve functional strength including mixture of closed and open kinetic chain exercises. R26.2 Difficulty walking: PT will work on gait training and proper use of assistive devices and advance as appropriate to use of stairs and outside ambulation on uneven surfaces. Z73.6 ADL dysfunction: OT will work on improving ability to perform ADLs (including assistive devices) to increase independence and decrease caregiver burden and improve functional transfers and mobility training. R26.81 Unsteadiness on feet: PT will work on improving static and dynamic sitting and standing balance as well as proper use of assistive devices to decrease risk of falls. R26.89 Abnormality of gait: PT will work to improve safety and efficiency of gait through neuromotor training and gait training along with instruction on p raudel use of assistive devices. R53.81 Debility: PT & OT will work on improving overall functional status to improve participation with ADLs, mobility and social involvement. R53.83 Fatigue: PT & OT will work on improving endurance through aerobic exercises and therapeutic activity while monitoring patients tolerance for activity and vital signs as needed. Hypertension: normalized off of medication CKD 2:Avoid nephrotoxic medications, monitor, stable currently and in normal range Diabetes type 2: cont carb controlled diet, has been fairly controlled on diet. OSH A1c 6 Morbid obesity: modification of diet/lifestyle and exercise discussed Obstructive sleep apnea: CPAP, monitor Folate deficiency: replaced Vit B12 topped off, Vit D low at 16, Vit B6 pending. HLD: Statin started Thyroid panel - TSH wnl, T4 slightly elevated CXR 03/30 NEG Cardiac workup NEG. PE NEG. Placed on z lanie for bronchitis. DVT ppx: Heparin Pain: Continue physical modalities in therapy and pain medications as needed to achieve functional pain control. Sleep: Monitor and address as needed. Start melatonin Bowel: Monitor and address as needed. Appetite: Monitor and address as needed. Discharge planning: Pending therapy progress and care plan meeting. Will continue discussion with therapy team, SW, patient and family. 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
[2019-04-09] MEDS: PROTONIX PO SCH (10:35)
[2019-04-09] MEDS: FOLVITE PO SCH (10:35)
[2019-04-09] MEDS: VITAMIN C PO SCH (10:35)
[2019-04-09] MEDS: HALFPRIN EC PO SCH (10:36)
[2019-04-09] MEDS: FEOSOL PO SCH (10:36)
[2019-04-09] MEDS: MIRALAX 3350 PO SCH (10:40)
[2019-04-09] MEDS: FLOMAX PO SCH (21:24)
[2019-04-10] MEDS: FOLVITE PO SCH (09:58)
[2019-04-10] MEDS: PROTONIX PO SCH (09:58)
[2019-04-10] MEDS: HALFPRIN EC PO SCH (09:59)
[2019-04-10] MEDS: FEOSOL PO SCH (09:59)
[2019-04-10] MEDS: MIRALAX 3350 PO SCH (10:00)
[2019-04-10] MEDS: VITAMIN C PO SCH (10:01)
[2019-04-10] MEDS: HEPARIN SUB-Q SCH ×3 (14:08→22:25)
[2019-04-10] MEDS: FLOMAX PO SCH (22:24)
[2019-04-11] MEDS: HEPARIN SUB-Q SCH ×2 (05:28→21:26)
[2019-04-11] MEDS: FOLVITE PO SCH (08:43)
[2019-04-11] MEDS: FEOSOL PO SCH (08:43)
[2019-04-11] MEDS: HALFPRIN EC PO SCH (08:43)
[2019-04-11] MEDS: VITAMIN C PO SCH (08:43)
[2019-04-11] MEDS: PROTONIX PO SCH (08:44)
[2019-04-11] MEDS: MIRALAX 3350 PO SCH (08:45)
[2019-04-11] MEDS: FLOMAX PO SCH (21:26)
[2019-04-12] MEDS: HEPARIN SUB-Q SCH ×3 (05:30→21:14)
--- NOTE | 2019-04-12 09:03 | Progress Note ---
Subjective Date of service: 04/12/19 Principal diagnosis: Difficulty walking, urine retention, poor balance Interval history: 39-year-old male with generalized weakness and dizziness plus right flank pain and diarrhea. Admitted to the hospital was found to be hypotensive and hyponatremic. Cardiology was consulted, Echocardiogram was obtained but do not have results. CTs of the abdomen and chest showed no acute abnormalities. CT stone protocol showed a possible 1 mm stone on the left kidney. Ultrasound of the gallbladder showed no acute abnormalities but did show fatty liver. Uncertain etiology for his weakness and loss of balance. 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 Patient and family deny any radiation or chemotherapy to the area. Also noted on exam that there is a slight right faci al droop that the mother also picked up on. No other focal signs. Do not have a MRI brain or CT head available from outside hospital. At this point I'm suspecting a neurologic issue and will need to investigate records and work up further. Head CT NEG for infarct but he continues to have loss of balance, weakness parasthesias and urinary retention - all sudden in onset. Clinically consistent lacunar infarct likely in pontine area or possibly transverse myelitis. Denies injury/pain to back / neck, no viral illness or other sickness prior to incident. Able to obtain MRI of brain and c-spine today - neither indicative of suspected injuries. Patient is participating in therapy and making reasonable progress. Taking rest breaks as needed. +BM. D/c Friday. Denies pain, palpitations, N/V, or joint pain. Escalante intact, urology rec outpatient follow up in 1 month for neurogenic bladder, maintain Escalante. BP is stable but on lower side at times, monitor. All records, vitals, labs and medications were reviewed. No other issues per patient, nursing or therapy. Objective - Exam Narrative Exam: MUSCULOSKELETAL SPECIALTY EXAM CONSTITUTIONAL: Well developed, well nourished, obese, appropriately groomed EENT: Hearing intact to soft voice RESPIRATORY: Clear to auscultation bilaterally, no increased work of breathing. CARDIOVASCULAR: Regular Rate/ Rhythm, mild swelling in b/l feet, otherwise no edema or tenderness in BUE or BLE. All extremities warm. GI / : + bowel sounds, soft, NTTP, nondistended. Escalante with good output INTEGUMENTARY: Normal, no lesion, rash, masses or bruising noted in extremities except for old scar over left shoulder MUSCULOSKELETAL: BUE and BLE normal without defect, crepitus, subluxation, effusion, arthritic changes or TTP. BUE 5/5, good ROM, with normal tone. BLE 5/5 good ROM, with normal tone NEURO: CN 2-12 grossly intact except for slight right flattening of nasolabial fold. Sensation intact but altered with numbness in all extremities. No tremor noted in 4 extremities. POSTURE and GAIT: Sitting posture good. Balance and gait improving. Endurance improving PSYCH: Alert, oriented x3, affect appears normal. Insight appears intact. - Constitutional Vitals: Vital Signs - 12hr 04/12/19 04:07 Temperature 36.7 C Pulse Rate 86 Respiratory 20 Rate Blood Pressure 107/61 O2 Sat by Pulse 95 Oximetry - Allied health notes Allied health notes reviewed: nursing, PT, OT FIMS assessment as documented by PT/OT/ST: Grooming Patient cleans teeth/dentures: Yes Patient reyes/brushes hair: Yes Patient washes, rinses and Yes dries face: Patient washes, rinses and Yes dries hands: Patient shaves: Yes Patient applies make-up: No Patient performs (no make-up/ 11/26 (100%) shaving): Grooming FIM Score 6. Modified [place] (Needs equipment/device . Extra time.) Toileting Toileting Device Urinal,Bedside Commode Patient able to: Adjust clothes before,Clean self,Adjust clothes after Patient able to perform: 3/3 (100%) Toileting FIM Score 6. Modified [place] (Needs equip. or prosth ./orth.) Social interaction/Memory/Problem solving Social Interaction FIM Score 6. Mod. [place] (Mostly appropriate. May need meds. No supv.) Memory FIM Score 7. Complete [place] (Remembers people and routines.) Problem Solving FIM Score 6. Mod. [place] (Mild difficulty or needs more time w/ complex.) Transfers Mode of Locomotion: Walking Bed/Chair/Wheelchair Transfers 5. Supervision (Needs supv. or set-up for FIM Score sliding board, foot rests.) Toilet Transfers FIM Score 6. Modified [place] (Uses device, special seat or more time.) Patient transferred to: Shower Tub Transfers FIM Score 0. Activity does not occur Shower Transfers FIM Score 6. Modified [place] (Needs slide board, grab bar, tub bench.) Locomotion- Stairs Device used on Stairs Handrail/s Number of Stairs Ascended/ 12 Descended Patient used handrail/support: Yes Stairs FIM Score 5. Supervision (12-14 stairs w/ supv. 4-6 stairs independently.) Locomotion- walk/wheelchair Most Frequent Mode of Wheelchair Locomotion: Ambulation Distance 340 Walking FIM Score 5. Supervision (Minimum 150 ft. supv./cues or 50 ft. independently.) Wheelchair Propulsion Distance 15 Wheelchair FIM Score 1. Total Assistance (Pt. < 25%, 2 or more person assist, or <50 ft.) Eating Eating FIM Score 6. Modified [place] (Special consistency or uses device.) Dressing-Upper body Patient retrieves clothing Yes items: Patient applies/removes UE DNA prosthesis or orthosis: Upper Body Dressing FIM Score 7. Complete [place] (Dresses self. Gets own clothes.) Dressing-lower body Patient retrieves clothing Yes items: Patient applies/removes LE DNA prosthesis or orthosis: Lower Body Dressing FIM Score 6. Modified [place] (Needs equipment, velcro or pros./orth.) - Labs CBC & Chem 7: 04/09/19 06:27 04/09/19 06:27 Labs: Laboratory Results - last 72 hr 04/10/19 04/11/19 07:18 07:37 POC Glucose 88 142 H - Imaging and cardiology MRI - head: report reviewed, image reviewed Assessment and Plan Presumed CVA: CT head NEG. MRI brain NEG. De-escalate secondary stroke prevention. May benefit from outpatient Neuro workup. Have considered SCI and other neuromuscular causes but constellation of symptoms (sudden onset of n umbness in all 4 extremities with A1c 6, urinary retention of >1L multiple times without hx of frequent nocturia, balance deficit, difficulty standing/walking but preserved strength and no hx of injuries or recent illness/environmental exposure to toxins) and exam not consistent. Other possibility is transverse myelitis. Less likely conversion but a possibility. Urinary retention with incontinence due to neurogenic bladder: Escalante inserted, 1300mL out initially. Escalante removed Friday 8/9 AM, unable to urinate by 1999 (I asked for escalante to be replaced if no UOP in 6hrs), Escalante replaced with about 700 out. Cont Flomax. Urology requested follow up in 1 month. Maintain Escalante until then. 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 The gagging and hot/cold episodes are odd and I am not sure how they fit into the total picture. M62.81 Muscle weakness: PT & OT will work on strengthening exercises to improve functional strength including mixture of closed and open kinetic chain exercises . R26.2 Difficulty walking: PT will work on gait training and proper use of assistive devices and advance as appropriate to use of stairs and outside ambulation on uneven surfaces. Z73.6 ADL dysfunction: OT will work on improving ability to perform ADLs (including assistive devices) to increase independence and decrease caregiver burden and improve functional transfers and mobility training. R26.81 Unsteadiness on feet: PT will work on improving static and dynamic sitting and standing balance as well as proper use of assistive devices to decrease risk of falls. R26.89 Abnormality of gait: PT will work to improve safety and efficiency of gait through neuromotor training and gait training along with instruction on proper use of assistive devices. R53.81 Debility: PT & OT will work on improving overall functional status to improve participation with ADLs, mobility and social involvement. R53.83 Fatigue: PT & OT will work on improving endurance through aerobic exercises and therapeutic activity while monitoring patients tolerance for activity and vital signs as needed. Hypertension: normalized off of medication CKD 2:Avoid nephrotoxic medications, monitor, stable currently and in normal range Diabetes type 2: cont carb controlled diet, has been fairly controlled on diet. OSH A1c 6 Morbid obesity: modification of diet/lifestyle and exercise discussed Obstructive sleep apnea: CPAP, monitor Folate deficiency: replaced Vit B12 topped off, Vit D low at 16, Vit B6 pending. HLD: Statin started Thyroid panel - TSH wnl, T4 slightly elevated CXR 03/30 NEG Cardiac workup NEG. PE NEG. DVT ppx: Heparin Pain: Continue physical modalities in therapy and pain medications as needed to achieve functional pain control. Sleep: Monitor and address as needed. Start melatonin Bowel: Monitor and address as needed. Appetite: Monitor and address as needed. Discharge planning: Pending therapy progress and care plan meeting. Will continue discussion with therapy team, SW, patient and family. 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
--- NOTE | 2019-04-12 15:42 | Magnetic Resonance Report ---
MR BRAIN WITHOUT CONTRAST HISTORY: Stroke, lacunar infarct suspected TECHNIQUE: Multisequence, multiplanar MRI without contrast. COMPARISON: CT head dated 03/25/2019 FINDINGS: The brain parenchyma signal intensity and its bruner-white interface are normal on all sequen maranda. No evidence for diffusion restriction, hemorrhage, mass or extra-axial fluid collection. No acut e or chronic infarct is identified. Ventricular size is within normal limits. The basal cisterns are clear. Normal flow voids are identif ied near the [place] of [place]. The posterior fossa and contents are unremarkable. Orbital cavities and contents are unremarkable. Sella turcica is within normal limits. There is moderate mucosal thickening throughout the posterior ethmoid air cells and sphenoid sinuses bilaterally. The remaining paranasal sinuses and mastoid air cells are well-aerated. IMPRESSION: Unremarkable MR brain without contrast. Chronic ethmoid and sphenoid sinus disease. Signer Name: Ender Houston Jr, MD Signed: 04/12/2019 3:37 PM Workstation Name: [id number]
--- NOTE | 2019-04-12 15:45 | Magnetic Resonance Report ---
MR CERVICAL SPINE WITHOUT CONTRAST HISTORY: Stroke, lacunar infarct suspected. Neurological symptoms. TECHNIQUE: Axial T2 and T2 gradient. Sagittal T1, T2 and STIR. COMPARISON: None at this facility. FINDINGS: There is mild reversal of the normal cervical lordosis which could be secondary to positioning or spa sm. There is normal height and alignment of the cervical vertebral bodies otherwise. Normal bone bethel ow signal. There is minimal disc desiccation at C2-3 and C5-6. No significant loss of disc height. The posterior elements are in appropriate relationship. No significant facet arthropathy. The cervical spinal cord is normal size and signal intensity throughout. No abnormal intramedullary s ignal or central canal stenosis. C2-3: No significant abnormality. C3-4: No significant abnormality. C4-5: No significant abnormality. C5-6: No significant abnormality. C6-7: No significant abnormality. C7-T1: No significant abnormality. The paraspinal soft tissues are unremarkable. IMPRESSION: Mild reversal of the normal cervical lordosis which could be secondary to positioning or spasm. Minimal disc desiccation at C2-3 and C5-6. No evidence for fracture, bulging disc or herniation. No s ignificant neural foraminal narrowing. Signer Name: Ender Houston Jr, MD Signed: 04/12/2019 3:41 PM Workstation Name: [id number]
[2019-04-12] MEDS: FEOSOL PO SCH (16:51)
[2019-04-12] MEDS: FOLVITE PO SCH (16:51)
[2019-04-12] MEDS: PROTONIX PO SCH (16:52)
[2019-04-12] MEDS: MIRALAX 3350 PO SCH (16:57)
[2019-04-12] MEDS: VITAMIN C PO SCH (17:14)
[2019-04-12] MEDS: INDOCIN PO SCH (17:44)
[2019-04-12] MEDS: COLCHICINE PO SCH (17:44)
[2019-04-12] MEDS: HALFPRIN EC PO SCH (19:13)
[2019-04-12] MEDS: FLOMAX PO SCH (21:15)
[2019-04-13] MEDS: INDOCIN PO SCH ×3 (00:29→13:00)
[2019-04-13] MEDS: HEPARIN SUB-Q SCH (05:40)
[2019-04-13] MEDS: COLCHICINE PO SCH (08:45)
[2019-04-13] MEDS: MIRALAX 3350 PO SCH (08:45)
[2019-04-13] MEDS: FOLVITE PO SCH (08:46)
[2019-04-13] MEDS: VITAMIN C PO SCH (08:46)
[2019-04-13] MEDS: FEOSOL PO SCH (08:46)
[2019-04-13] MEDS: PROTONIX PO SCH (08:46)
[2019-04-13] MEDS: VITAMIN D2 PO SCH (10:20)
--- NOTE | 2019-04-13 12:06 | Discharge Summary ---
Providers - Providers Date of Admission: 03/22/19 16:53 Date of discharge: 04/13/19 Attending physician: SAJI VILLEGAS III, MD 03/22/19 15:11 Occupational Therapy Evaluate and Treat [CONS] Routine Comment: Reason For Exam: ADL dysfunction Physical Therapy Evaluation and Treat [CONS] Routine Comment: Reason For Exam: Mobility Dysfunction 03/22/19 15:17 Consult to Case Management [CONS] Routine Services Needed at Discharge: Home Health Services Notified:: cm notified 04/02/19 13:42 Consult to Physician [CONS] Routine Comment: Consulting Provider: LUCY GONZALEZ Physician Instructions: Dr Bautista requested IM consult Reason For Exam: Chest tightness 04/05/19 13:18 Consult to Physician [CONS] Routine Comment: Consulting Provider: JACINTO TROY Physician Instructions: Reason For Exam: Urinary retention, poss neurogenic bladder 04/08/19 12:10 Speech Therapy Evaluation and Treat [CONS] Urgent Reason For Exam: Dysphagia - MBS Primary care physician: [facility] Hospitalization Reason for admission: Difficulty walking, weakness Condition: Good Pertinent studies: Head CT 03/25/2019 negative for acute abnormality Chest CTA 04/03/2019 negative for PE, bronchitis present Modified barium swallow 04/08/2019 normal Cervical MRI 04/12/2019 normal MRI brain 04/12/2019 normal Hospital course: 39-year-old male with generalized weakness and dizziness plus right flank pain and diarrhea. Admitted to the hospital was found to be hypotensive and hyp onatremic. Cardiology was consulted, Echocardiogram was obtained but do not have results. CTs of the abdomen and chest showed no acute abnormalities. CT stone protocol showed a possible 1 mm stone on the left kidney. Ultrasound of the gallbladder showed no acute abnormalities but did show fatty liver. Uncertain etiology for his weakness and loss of balance. 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 Patient and family deny any radiation or chemotherapy to the area. Also noted on exam that there is a slight right facial droop that the mother also picked up on. No other focal signs. Do not have a MRI brain or CT head available from outside hospital. At this point I'm suspecting a neurologic issue and will need to investigate records and work up further. Presumed diagnosis of CVA initially, but we were unable to obtain MRI evidence to support or disprove. Based on symptoms it appeared to be a likely lacunar infarct. CT head NEG. Later with weight loss we were able to obtain MRI. MRI brain NEG. De-escalate secondary stroke prevention. May benefit from outpatient Neuro workup. Have considered SCI and other neuromuscular causes but constellation of symptoms (sudden onset of numbness in all 4 extremities with A1c 6, urinary retention of >1L multiple times without hx of frequent nocturia, balance deficit, difficulty standing/walking but preserved strength and no hx of injuries or recent illness/environmental exposure to toxins) and exam not consistent. Other possibility is transverse myelitis, but MRI cervical spine also negative. Less likely conversion but a possibility. Also check a panel of vitamins and replace those that were deficient including folate, vitamin B12 (low in the normal), vitamin D, iron. Thyroid panel was checked with a TSH within normal limits and a slightly elevated T4. Urinary retention with incontinence: Nelson inserted, 1300mL out initially. Flomax was started with bladder training several days later and a failed attempt at discontinuing the Nelson. Nelson was replaced and urology was consulted. Patient was asked to follow up approximately a month after discharge. Original physician consulted does not except patient's insurance and the patient has made other arrangements. Patient has been trained on how to maintain his Nelson until follow-up with urology. Patient experienced chest tightness on 04/02/2019. Cardiology and internal medicine consults were called. Stat cardiac enzymes and EKG were also ordered. Workup also included CTA of the chest for possible PE. Workup was negative for any cardiac or pulmonary issues except for slight bronchitis which was treated with Z-Bob. Patient also noted to have choking with eating a turkey sandwich. Previously the patient is stated that he would gag occasionally on food that had an off putting taste. Uncertain how a typical turkey sandwich which is the same as be made at home would have an off putting taste causing gag reflex. This episode had more the appearance of an issue with dysphagia and speech was consulted for a modified barium swallow. That test also was completely normal with no abnormalities in swallowing. Would recommend patient follow up with neurology after discharge. With the extensive workup that has been performed I am more inclined to lean towards a diagnosis of conversion disorder however for completeness sake neurology may be able to further exclude other possible diagnoses. At any rate at this point patient is able to ambulate independently at times without a walker or other assistive device and sometimes requiring a rolling walker. Should continue to improve his ability to perform ADLs and ambulate independently. Disposition: DC-01 TO HOME OR SELFCARE Time spent for discharge: >30mins Core Measure Documentation - Palliative Care Palliative Care/ Comfort Measures: Not Applicable - Core Measures Any of the following diagnoses?: none Exam - Physical Exam Narrative exam: MUSCULOSKELETAL SPECIALTY EXAM CONSTITUTIONAL: Well developed, well nourished, obese, appropriately groomed EENT: Hearing intact to soft voice RESPIRATORY: Clear to auscultation bilaterally, no increased work of breathing. CARDIOVASCULAR: Regular Rate/ Rhythm, mild swelling in b/l feet, otherwise no edema or tenderness in BUE or BLE. All extremities warm. GI / : + bowel sounds, soft, NTTP, nondistended. Nelson with good output INTEGUMENTARY: Normal, no lesion, rash, masses or bruising noted in extremities except for old scar over left shoulder MUSCULOSKELETAL: BUE and BLE normal without defect, crepitus, subluxation, effusion, arthritic changes or TTP. BUE 5/5, good ROM, with normal tone. BLE 5/5 good ROM, with normal tone NEURO: CN 2-12 grossly intact. Sensation intact but altered with numbness in all extremities. No tremor noted in 4 extremities. POSTURE and GAIT: Sitting posture good. Balance and gait improving. Endurance improving PSYCH: Alert, oriented x3, affect appears normal. Insight appears intact. - Constitutional Vitals: Temp Pulse Resp BP Pulse Ox 36.6 C 89 18 124/83 94 04/13/19 07:45 04/13/19 07:44 04/13/19 07:44 04/13/19 07:44 04/13/19 07:44 Plan Activity: advance as tolerated, fall precautions Diet: regular Special Instructions: record daily weights, physical therapy, occupational therapy Durable Medical Equipment Needed Upon Discharge: Walker-Rolling (Already has DME) Additional Instructions: Follow up with Urology for neurogenic bladder. Follow up with Neurology if symptoms continue Follow up with: PRIMARY CARE,MD [Primary Care Provider] - 7 Days Prescriptions: Tamsulosin [Flomax] 0.4 mg PO HS #30 capsule Pantoprazole [Protonix TAB] 40 mg PO QDAY #30 tablet Ergocalciferol [Vitamin D2] 50,000 unit PO Tu #3 capsule
[2019-04-13 12:25] VITALS: BP 118/81
== END 2019-04-13 15:45 | disposition home or self-care (01) | DRG 948 ==
LOC: 3A 14:33 → UNDOADMIN 14:33 → 3B 16:53
PROVIDERS: ADMIT Physical Medicine & Rehabilitation; ATTEND Physical Medicine & Rehabilitation
DX: R53.81 Other malaise (principal); E87.1 Hypo-osmolality and hyponatremia; Z68.42 Body mass index [BMI] 45.0-49.9, adult; R26.2 Difficulty in walking, not elsewhere classified; M62.81 Muscle weakness (generalized); N18.2 Chronic kidney disease, stage 2 (mild); E11.22 Type 2 diabetes mellitus with diabetic chronic kidney disease; R33.9 Retention of urine, unspecified; R32 Unspecified urinary incontinence; I12.9 Hypertensive chronic kidney disease with stage 1 through stage 4 chronic kidney disease, or unspecified chronic kidney disease; N20.0 Calculus of kidney; J20.9 Acute bronchitis, unspecified; K76.0 Fatty (change of) liver, not elsewhere classified; R26.89 Other abnormalities of gait and mobility; R07.89 Other chest pain; I95.1 Orthostatic hypotension; Z82.49 Family history of ischemic heart disease and other diseases of the circulatory system; Z85.9 Personal history of malignant neoplasm, unspecified; Z88.5 Allergy status to narcotic agent; Z79.899 Other long term (current) drug therapy; Z99.81 Dependence on supplemental oxygen; E66.01 Morbid (severe) obesity due to excess calories
CPT/HCPCS: 36415; 70450; 70551; 71046; 71275; 72141; 74230; 80048; 80053; 80061; 82306; 82533; 82550; 82553; 82607; 82747; 82962; 83735; 83880; 84207; 84439; 84443; 84484; 85025; 85027; 85379; 87116; 93005; 93010; 94640; 94760; G0378; A9270-GY; J1644; J3420; Q0162; Q9967